=== PATIENT | male | born 1935 | race Hispanic/Latino ===

== ENCOUNTER 2018-01-13 13:37 | Inpatient (IN) | payer MEDICARE, BC ==
--- NOTE | 2018-01-13 14:29 | ED PDOC ---
HPI: Trauma/Fall - HPI Time Seen by Provider: 01/13/18 14:20 Chief Complaint (Nursing): Trauma Chief Complaint (Provider): Trauma History Per: Patient History/Exam Limitations: no limitations Onset/Duration Of Symptoms: Days (x5) Additional Complaint(s): 82 year old male with medical history of diabetes, presents to the emergency department via EMS for left knee pain status post fall prior to arrival. Patient was found on the ground by EMS with difficult ambulation. He also reported falling in a [employer] bus 4 days ago which left him with numbness /weakness of his left arm and leg. Denied any head injury or loss of consciousness. PMD: [facility] Past Medical History Reviewed: Historical Data, Nursing Documentation, Vital Signs Vital Signs: Last Vital Signs Temp 97.9 F 01/13/18 13:39 Pulse 65 01/13/18 13:39 Resp 16 01/13/18 13:39 BP 139/80 01/13/18 13:39 Pulse Ox 99 01/13/18 13:39 - Medical History PMH: HTN, Hyperlipidemia - Surgical History Surgical History: No Surg Hx - Family History Family History: States: Unknown Family Hx - Social History Current smoker - smoking cessation education provided: No Ex-Smoker (has not smoked in the last 12 months): No Alcohol: None Drugs: Denies - Home Medications Home Medications: Ambulatory Orders Medication Instructions Recorded Aspirin [Ecotrin] 81 mg PO DAILY 01/13/18 Atorvastatin [Lipitor] 20 mg PO HS 01/13/18 Finasteride [Proscar] 5 mg PO DAILY 01/13/18 Glimepiride [amaRYL] 2 mg PO DAILY 01/13/18 Insulin Detemir [Levemir] 45 unit SC BID 01/13/18 Lisinopril/Hydrochlorothiazide 1 tab PO BID 01/13/18 [Lisinopril-Hctz 20-12.5 mg Tab] Metformin HCl [Glucophage] 500 mg PO BID 01/13/18 Tamsulosin [Flomax] 0.4 mg PO DAILY 01/13/18 amLODIPine [Norvasc] 10 mg PO DAILY 01/13/18 - Allergies Allergies/Adverse Reactions: Allergies Allergy/AdvReac Type Severity Reaction Status Date / Time No Known Allergies Allergy Verified 01/13/18 13:39 Review of Systems ROS Statement: Except As Marked, All Systems Reviewed And Found Negative Musculoskeletal: Positive for: Leg Pain (left knee). Negative for: Other ( ambulation) Neurological: Positive for: Weakness (left arm and knee), Numbness (left arm and left leg). Negative for: Other (head injury or LOC) Physical Exam - Reviewed Nursing Documentation Reviewed: Yes Vital Signs Reviewed: Yes - Physical Exam Appears: Positive for: Non-toxic, No Acute Distress Head Exam: Positive for: ATRAUMATIC, NORMAL INSPECTION, NORMOCEPHALIC Eye Exam: Positive for: Normal appearance ENT: Positive for: Normal ENT Inspection, Pharynx Is (within normal limits. Neibert and moist mucous membranes) Neck: Positive for: Normal, Painless ROM, Supple Cardiovascular/Chest: Positive for: Regular Rate, Rhythm, Other (left-sided ecchymosis of anterior chest wall) Respiratory: Positive for: Normal Breath Sounds. Negative for: Decreased Breath Sounds, Crackles, Rales, Rhonchi, Wheezing, Respiratory Distress Pulses-Femoral (L): 2+ Pulses-Post. Tibialis (L): 2+ Pulses-Radial (L): 2+ Gastrointestinal/Abdominal: Positive for: Normal Exam, Soft. Negative for: Tenderness Back: Positive for: Normal Inspection. Negative for: L CVA Tenderness, R CVA Tenderness, Vertebral Tenderness, Other (pelvis tenderness) Extremity: Positive for: Other (left arm and left leg weakness-strength: 3/5; Left elbow, proximal humerous and left knee ecchymosis). Negative for: Pedal Edema (bilateral) Neurologic/Psych: Positive for: Alert (x3), Oriented. Negative for: Motor/ Sensory Deficits - Laboratory Results Result Diagrams: 01/13/18 14:45 01/13/18 14:45 - ECG O2 Sat by Pulse Oximetry: 99 (RA) Pulse Ox Interpretation: Normal Medical Decision Making Medical Decision Making: Initial Impression: Left arm and leg weakness Initial Plan: * CT head without contrast * CMP * CBC * PTT * PT * CXR * Xray knee (left) * Xray humerus (left) * Xray pelvis ____ Time: 1536 --CT head FINDINGS: HEMORRHAGE: No intracranial hemorrhage. BRAIN: No mass effect or edema. Mild atrophy and chronic microvascular ischemic changes. VENTRICLES: Unremarkable. No hydrocephalus. CALVARIUM: Unremarkable. PARANASAL SINUSES: Unremarkable as visualized. No significant inflammatory changes. MASTOID AIR CELLS: Unremarkable as visualized. No inflammatory changes. OTHER FINDINGS: None. IMPRESSION: Normal CT of the Head. Scribe Attestation: Documented by Shannan Kennedy, acting as a scribe for Jose Sousa DO. Provider Scribe Attestation: All medical record entries made by the Scribe were at my direction and personally dictated by me. I have reviewed the chart and agree that the record accurately reflects my personal performance of the history, physical exam, medical decision making, and the department course for this patient. I have also personally directed, reviewed, and agree with the discharge instructions and disposition. Disposition - Clinical Impression Clinical Impression: Dehydration, Weakness of left arm, Weakness of left leg - Patient ED Disposition Is Patient to be Admitted: Yes - Disposition Disposition Time: 17:00 Condition: GOOD Forms: [employer] (Kiswahili)
[2018-01-13 14:58] LABS: BASO % 0.4 % (0.0-2.0); EOS # 0.1 K/uL (0.0-0.7); EOS % 0.4 % (0.0-4.0); HEMOGLOBIN 14.1 g/dL (12.0-18.0); LYMPH # 0.9 K/uL (1.0-4.3); MEAN CELL VOLUME 86.3 fl (80.0-94.0); MEAN CORPUSCULAR HGB CONC 32.4 g/dL (33.0-37.0); MEAN PLATELET VOLUME 8.3 fl (7.2-11.7); MONO # 0.9 K/uL (0.0-0.8); MONO % 7.2 % (0.0-10.0); NEUT # 10.5 K/uL (1.8-7.0); NRBC % 0.1 % (0.0-0.0); PLATELET COUNT 278 K/uL (130-400); RBC 5.03 Mil/uL (4.40-5.90); RED CELL DISTRIBUTION WIDTH 14.8 % (11.5-14.5); WHITE BLOOD COUNT 12.4 K/uL (4.8-10.8)
[2018-01-13 15:06] LABS: ALB/GLOB RATIO 1.3 (1.0-2.1); ALBUMIN 4.6 g/dL (3.5-5.0); ALT/SGPT 82 U/L (21-72); AST/SGOT 112 U/L (17-59); BLOOD UREA NITROGEN 68 mg/dl (9-20); CALCIUM 10.1 mg/dL (8.4-10.2); GFR AFRICAN-AMERICAN > 60; GFR NON-AFRICAN AMERICAN 53
[2018-01-13 15:13] LABS: PROTHROMBIN TIME 11.5 Seconds (9.8-13.1)
[2018-01-13 15:30] LABS: ANISOCYTOSIS SLIGHT; LYMPHOCYTE 7 % (20-50); MONOCYTE 6 % (0-10); NEUTROPHIL 87 % (42-75); PLATELET ESTIMATE NORMAL (NORMAL); TOTAL CELLS COUNTED 100
--- NOTE | 2018-01-13 15:38 | CT ---
PROCEDURE: CT HEAD WITHOUT CONTRAST. HISTORY: left weakness COMPARISON: None available. TECHNIQUE: Axial computed tomography images were obtained through the head/brain without intravenous contrast. Radiation dose: Total exam DLP = mGy-cm. This CT exam was performed using one or more of the following dose reduction techniques: Automated exposure control, adjustment of the mA and/or kV according to patient size, and/or use of iterative reconstruction technique. FINDINGS: HEMORRHAGE: No intracranial hemorrhage. BRAIN: No mass effect or edema. Mild atrophy and chronic microvascular ischemic changes. VENTRICLES: Unremarkable. No hydrocephalus. CALVARIUM: Unremarkable. PARANASAL SINUSES: Unremarkable as visualized. No significant inflammatory changes. MASTOID AIR CELLS: Unremarkable as visualized. No inflammatory changes. OTHER FINDINGS: None. IMPRESSION: Normal CT of the Head.
[2018-01-13] MEDS ORDERED: Sodium Chloride 0.9% 500 ML IV SCH (15:45)
[2018-01-13] MEDS: Sodium Chloride 0.9% 1,000 ML IV SCH (20:07)
[2018-01-13 22:07] LABS: ALB/GLOB RATIO 1.2 (1.0-2.1); ALBUMIN 3.7 g/dL (3.5-5.0); ALT/SGPT 70 U/L (21-72); AST/SGOT 83 U/L (17-59); BLOOD UREA NITROGEN 62 mg/dl (9-20); GFR AFRICAN-AMERICAN > 60; GFR NON-AFRICAN AMERICAN > 60
[2018-01-14 07:19] LABS: BASO # 0.1 K/uL (0.0-0.2); EOS # 0.3 K/uL (0.0-0.7); EOS % 3.6 % (0.0-4.0); HEMOGLOBIN 12.5 g/dL (12.0-18.0); LYMPH # 1.2 K/uL (1.0-4.3); LYMPH % 12.7 % (20.0-40.0); MEAN CELL VOLUME 86.6 fl (80.0-94.0); MEAN CORPUSCULAR HEMOGLOBIN 27.9 pg (27.0-31.0); MEAN CORPUSCULAR HGB CONC 32.2 g/dL (33.0-37.0); MEAN PLATELET VOLUME 8.2 fl (7.2-11.7); MONO # 0.8 K/uL (0.0-0.8); MONO % 8.4 % (0.0-10.0); NEUT # 6.8 K/uL (1.8-7.0); NEUT % 74.3 % (50.0-75.0); RBC 4.49 Mil/uL (4.40-5.90); RED CELL DISTRIBUTION WIDTH 14.4 % (11.5-14.5); WHITE BLOOD COUNT 9.2 K/uL (4.8-10.8)
[2018-01-14 07:25] LABS: ALB/GLOB RATIO 1.2 (1.0-2.1); ALBUMIN 3.6 g/dL (3.5-5.0); ALT/SGPT 67 U/L (21-72); AST/SGOT 79 U/L (17-59); BLOOD UREA NITROGEN 50 mg/dl (9-20); CALCIUM 9.1 mg/dL (8.4-10.2); GFR AFRICAN-AMERICAN > 60; GFR NON-AFRICAN AMERICAN > 60
--- NOTE | 2018-01-14 07:53 | CP.PCM.HP ---
History of Present Illness - History of Present Illness History of Present Illness: pt admitted for "fall" at [facility] monday night. was assisted home and sat on couch until yesterday. electrolytes abn and pt w/ left sided weakness. bruising noted to lue. lue/lle 01/29, r side 03/31 denies f/c, n/v/d. denies neuro deficits prior to monday. pt is a/ox4 at present. final reports of imging noted electrolytes normalizing w/ fluids. cpk elevated. Present on Admission - Present on Admission Any Indicators Present on Admission: Yes History of Uncontrolled Diabetes: Yes Review of Systems - Integumentary Integumentary: As Per HPI Past Patient History - Past Medical History & Family History Past Medical History?: Yes - Past Social History Smoking Status: Never Smoked - CARDIAC Hx Cardiac Disorders: Yes Hx Hypercholesterolemia: Yes Hx Hypertension: Yes - PULMONARY Hx Respiratory Disorders: No - NEUROLOGICAL Hx Neurological Disorder: No - HEENT Hx HEENT Problems: Yes Hx Cataracts: Yes Hx Glaucoma: Yes - RENAL Hx Chronic Kidney Disease: No - ENDOCRINE/METABOLIC Hx Endocrine Disorders: Yes Hx Diabetes Mellitus Type 2: Yes - HEMATOLOGICAL/ONCOLOGICAL Hx Blood Disorders: No Hx AIDS: No Hx Human Immunodeficiency Virus (HIV): No - INTEGUMENTARY Hx Dermatological Problems: No - MUSCULOSKELETAL/RHEUMATOLOGICAL Hx Falls: Yes (1st fall 4 days ago, slipped) - GASTROINTESTINAL Hx Gastrointestinal Disorders: Yes Hx Constipation: Yes - GENITOURINARY/GYNECOLOGICAL Hx Genitourinary Disorders: Yes Hx Prostate Problems: Yes - PSYCHIATRIC Hx Psychophysiologic Disorder: No Hx Substance Use: No - SURGICAL HISTORY Hx Surgeries: No - ANESTHESIA Hx Anesthesia: No Hx Anesthesia Reactions: No Hx Malignant Hyperthermia: No Has any member of the family had a problem w/ anesthesia?: No Meds Allergies/Adverse Reactions: Allergies Allergy/AdvReac Type Severity Reaction Status Date / Time No Known Allergies Allergy Verified 01/13/18 13:39 Physical Exam - Constitutional Appears: Well, Non-toxic, No Acute Distress - Head Exam Head Exam: ATRAUMATIC, NORMAL INSPECTION, NORMOCEPHALIC - Eye Exam Eye Exam: EOMI, Normal appearance, PERRL Pupil Exam: NORMAL ACCOMODATION, PERRL - ENT Exam ENT Exam: Mucous Membranes Moist, Normal Exam - Neck Exam Neck exam: Positive for: Normal Inspection - Respiratory Exam Respiratory Exam: Clear to Auscultation Bilateral, NORMAL BREATHING PATTERN - Cardiovascular Exam Cardiovascular Exam: REGULAR RHYTHM, RRR, +S1, +S2 - GI/Abdominal Exam GI & Abdominal Exam: Normal Bowel Sounds, Soft. absent: Tenderness - Extremities Exam Extremities exam: Positive for: full ROM, normal capillary refill, normal inspection, pedal pulses present - Back Exam Back exam: NORMAL INSPECTION - Neurological Exam Neurological exam: Abnormal Gait, Alert, CN II-XII Intact, Oriented x3, Reflexes Normal - Psychiatric Exam Psychiatric exam: Normal Affect, Normal Mood - Skin Skin Exam: Dry, Intact, Normal Color, Warm Additional comments: erythema under abd fold brusing to left arm Results - Vital Signs Recent Vital Signs: Last Vital Signs Temp 97.9 F 01/14/18 00:13 Pulse 64 01/14/18 00:13 Resp 19 01/14/18 00:13 BP 138/78 01/14/18 00:13 Pulse Ox 96 01/14/18 00:13 - Labs Result Diagrams: 01/14/18 05:30 01/14/18 05:30 Labs: Laboratory Results - last 24 hr 01/13/18 01/13/18 01/13/18 14:45 14:45 14:45 WBC 12.4 H RBC 5.03 Hgb 14.1 Hct 43.4 MCV 86.3 MCH 28.0 MCHC 32.4 L RDW 14.8 H Plt Count 278 MPV 8.3 Neut % (Auto) 85.0 H Lymph % (Auto) 7.0 L Franklin % (Auto) 7.2 Eos % (Auto) 0.4 Baso % (Auto) 0.4 Neut # (Auto) 10.5 H Lymph # (Auto) 0.9 L Franklin # (Auto) 0.9 H Eos # (Auto) 0.1 Baso # (Auto) 0.0 Neutrophils % (Manual) 87 H Lymphocytes % (Manual) 7 L Monocytes % (Manual) 6 Platelet Estimate Normal Anisocytosis (manual) Slight PT 11.5 INR 1.0 APTT 27.0 Sodium 151 H Potassium 5.1 H Chloride 112 H Carbon Dioxide 20 L Anion Gap 24 H BUN 68 H Creatinine 1.3 Est GFR ( Amer) > 60 Est GFR (Non-Af Amer) 53 POC Glucose (mg/dL) Random Glucose 285 H Calcium 10.1 Total Bilirubin 2.3 H AST 112 H ALT 82 H Alkaline Phosphatase 91 Total Creatine Kinase Total Protein 8.1 Albumin 4.6 Globulin 3.5 Albumin/Globulin Ratio 1.3 01/13/18 01/13/18 01/13/18 17:33 21:30 21:56 WBC RBC Hgb Hct MCV MCH MCHC RDW Plt Count MPV Neut % (Auto) Lymph % (Auto) Franklin % (Auto) Eos % (Auto) Baso % (Auto) Neut # (Auto) Lymph # (Auto) Franklin # (Auto) Eos # (Auto) Baso # (Auto) Neutrophils % (Manual) Lymphocytes % (Manual) Monocytes % (Manual) Platelet Estimate Anisocytosis (manual) PT INR APTT Sodium 141 Potassium 4.1 Chloride 108 H Carbon Dioxide 19 L Anion Gap 18 BUN 62 H Creatinine 1.1 Est GFR ( Amer) > 60 Est GFR (Non-Af Amer) > 60 POC Glucose (mg/dL) 216 H 182 H Random Glucose 222 H Calcium 9.0 Total Bilirubin 2.0 H AST 83 H D ALT 70 Alkaline Phosphatase 74 Total Creatine Kinase 1398 H Total Protein 6.7 Albumin 3.7 Globulin 3.1 Albumin/Globulin Ratio 1.2 01/14/18 01/14/18 01/14/18 05:30 05:30 05:40 WBC 9.2 RBC 4.49 Hgb 12.5 Hct 38.9 MCV 86.6 MCH 27.9 MCHC 32.2 L RDW 14.4 Plt Count 199 MPV 8.2 Neut % (Auto) 74.3 Lymph % (Auto) 12.7 L Franklin % (Auto) 8.4 Eos % (Auto) 3.6 Baso % (Auto) 1.0 Neut # (Auto) 6.8 Lymph # (Auto) 1.2 Franklin # (Auto) 0.8 Eos # (Auto) 0.3 Baso # (Auto) 0.1 Neutrophils % (Manual) Lymphocytes % (Manual) Monocytes % (Manual) Platelet Estimate Anisocytosis (manual) PT INR APTT Sodium 143 Potassium 4.3 Chloride 109 H Carbon Dioxide 22 Anion Gap 16 BUN 50 H Creatinine 1.0 Est GFR ( Amer) > 60 Est GFR (Non-Af Amer) > 60 POC Glucose (mg/dL) 156 H Random Glucose 181 H Calcium 9.1 Total Bilirubin 2.5 H AST 79 H ALT 67 Alkaline Phosphatase 76 Total Creatine Kinase Total Protein 6.6 Albumin 3.6 Globulin 3.1 Albumin/Globulin Ratio 1.2 Assessment & Plan (1) Fall Assessment and Plan: pt//ot izabela placement Status: Acute (2) Dehydration Assessment and Plan: cont ivf lkely cause of elev bun/cpk neprho consult Status: Acute (3) Weakness of left arm Assessment and Plan: unkn etiology mri and neuro ordered eeg and seizure precautions f/u final reports of imaging Status: Acute (4) Weakness of left leg Assessment and Plan: unkn etiology mri and neuro ordered eeg and seizure precautions f/u final reports of imaging Status: Acute Decision To Admit - Pt Status Changed To: Hospital Disposition Of: Inpatient - Admit Certification Admit to Inpatient:: After my assessment, the patient will require hospitalization for at least two midnights. This is because of the severity of symptoms shown, intensity of services needed, and/or the medical risk in this patient being treated as an outpatient. - . Bed Request Type: Med/Surg Admitting Physician: Surendra Gill
[2018-01-14] MEDS ORDERED: Sodium Chloride 0.9% 1,000 ML IV SCH (08:00)
--- NOTE | 2018-01-14 08:42 | RAD ---
HISTORY: fall COMPARISON: No prior FINDINGS: BONES: Normal. No fracture. JOINTS: Normal. No osteoarthritis. SOFT TISSUE: Normal. OTHER FINDINGS: None . IMPRESSION: Normal Bone Xray.
--- NOTE | 2018-01-14 08:43 | RAD ---
HISTORY: fall COMPARISON: No prior FINDINGS: BONES: Normal. No fracture. JOINTS: Tricompartmental osteoarthritis with chondrocalcinosis. SOFT TISSUE: Normal. OTHER FINDINGS: None . IMPRESSION: Tricompartmental osteoarthritis with chondrocalcinosis.
--- NOTE | 2018-01-14 08:44 | RAD ---
HISTORY: fall COMPARISON: No prior FINDINGS: BONES: Normal. No fracture. JOINTS: Normal. No osteoarthritis. SOFT TISSUE: Normal. OTHER FINDINGS: None . IMPRESSION: Normal Bone Xray.
[2018-01-14] MEDS ORDERED: Patient's Own Med (Lisinopril/Hydrochlorothiazide [Lisinopril-Hctz 20-12.5 Mg Tab] 1 TAB) PO SCH ×2 (09:00)
--- NOTE | 2018-01-14 10:16 | RAD ---
PROCEDURE: CHEST RADIOGRAPH, 1 VIEW HISTORY: pain COMPARISON: None available. FINDINGS: LUNGS: Clear. PLEURA: No pneumothorax or pleural fluid seen. CARDIOVASCULAR: Normal. OSSEOUS STRUCTURES: No significant abnormalities. VISUALIZED UPPER ABDOMEN: Normal. OTHER FINDINGS: None. IMPRESSION: No active disease.
--- NOTE | 2018-01-14 10:30 | RAD ---
PROCEDURE: Radiographs of the left elbow. HISTORY: fall, bruising COMPARISON: No prior. FINDINGS: BONES: Normal. No fracture. JOINTS: Normal. No osteoarthritis. SOFT TISSUES: Normal. JOINT EFFUSION: None. OTHER FINDINGS: None IMPRESSION: Unremarkable radiographs of the left elbow.
[2018-01-14] MEDS: GlipiZIDE 5 mg SR Tab PO SCH (10:43)
--- NOTE | 2018-01-14 11:42 | CP.PCM.CON ---
History of Present Illness - History of Present Illness History of Present Illness: Initial Nephrology Consultation: Assessment: Stable Acute Kidney Injury (N17.9) likely due to pre-renal state Hypernatremia, mild rhabdomyolysis HTN (I12.9) abnormal LFT with hyperbilirubinemia fall DM Plan No acute need for renal replacement therapy at this time. Hypertension control with meds as ordered. hold ACEI/ARB due to LELAND. can resume at d/c Monitor Input/Output, daily weights and renal function with basic metabolic panel agree with IVF as NS since serum Na improving. can d/c IVF in next 1-2 days Dose meds/antibiotics for improved GFR. Avoid fleets enema/magnesium based laxatives. Avoid nephrotoxins/NSAIDs Glycemic control Further work up/management as per primary team Thanks for allowing me to participate in care of your patient. Will follow patient with you. Please call if any Qs. d/w team Dr Roberto Johnson Office: [phone] Chief Complaint; fall HPI: Pt is a 82 M with hx of diabetes Mellitus ( years), hypertension (years) presented with complaints of fall and left leg weakness since . renal consult for LELAND and hypernatremia. he is feeling better now except left leg pain and weakness Denies OTC/herbal meds or NSAIDs No recent iodinated contrast exposure. No obvious episodes of low BP. ROS: Cardiovascular: No chest pain. Pulmonary: No shortness of breath Gastrointestinal: denies abdominal pain No nausea. No vomiting. Genitourinary: No pain while urinating. Denies blood in urine. All other negative Physical Examination: General Appearance: Comfortable, in no acute respiratory distress, co-operative . Vitals reviewed and noted as below Head; Atraumatic, normocephalic ENT: no ulcers no thrush. Tongue is midline. Oropharynx: no rash or ulcers. EYES: Pupils are equal, round and reactive to light accommodation. Eye muscles and extraocular movement intact. Sclera is anicteric. Neck; supple no lymphadenopathy, no thyromegaly or bruit Lungs: Normal respiratory rate/effort. Breath sounds bilateral equal and clear Heart: Normal rate. s1s2 normal. No rub or gallop. Extremities: no edema. No varicose veins Neurological: Patient is alert, awake and oriented to person, place and time. Strength somewhat diminished left leg. has superficial bruising around knee Skin: Warm and dry. Normal turgor. No rash. Palpitation: Normal elasticity for age Abdomen: Abdomen is soft. Bowel sounds +. There is no abdominal tenderness, no guarding/rigidity no organomegaly Psych: normal insight and normal affect/mood MSK: no joint tenderness or swelling. Digits and nails normal, no deformity : kidney or bladder not palpable Labs/imaging reviewed. Past medical history, past surgical history, family history, social history, allergy reviewed and noted as below Family hx: no hx of CKD. Rest non-contributory Past Patient History - Past Medical History & Family History Past Medical History?: Yes - Past Social History Smoking Status: Never Smoked - CARDIAC Hx Cardiac Disorders: Yes Hx Hypercholesterolemia: Yes Hx Hypertension: Yes - PULMONARY Hx Respiratory Disorders: No - NEUROLOGICAL Hx Neurological Disorder: No - HEENT Hx HEENT Problems: Yes Hx Cataracts: Yes Hx Glaucoma: Yes - RENAL Hx Chronic Kidney Disease: No - ENDOCRINE/METABOLIC Hx Endocrine Disorders: Yes Hx Diabetes Mellitus Type 2: Yes - HEMATOLOGICAL/ONCOLOGICAL Hx Blood Disorders: No Hx AIDS: No Hx Human Immunodeficiency Virus (HIV): No - INTEGUMENTARY Hx Dermatological Problems: No - MUSCULOSKELETAL/RHEUMATOLOGICAL Hx Falls: Yes (1st fall 4 days ago, slipped) - GASTROINTESTINAL Hx Gastrointestinal Disorders: Yes Hx Constipation: Yes - GENITOURINARY/GYNECOLOGICAL Hx Genitourinary Disorders: Yes Hx Prostate Problems: Yes - PSYCHIATRIC Hx Psychophysiologic Disorder: No Hx Substance Use: No - SURGICAL HISTORY Hx Surgeries: No - ANESTHESIA Hx Anesthesia: No Hx Anesthesia Reactions: No Hx Malignant Hyperthermia: No Has any member of the family had a problem w/ anesthesia?: No Meds Allergies/Adverse Reactions: Allergies Allergy/AdvReac Type Severity Reaction Status Date / Time No Known Allergies Allergy Verified 01/13/18 13:39 - Medications Medications: Current Medications Amlodipine Besylate (Norvasc) 10 mg PO DAILY [facility] Last Admin: 01/14/18 10:43 Dose: 10 mg Aspirin (Ecotrin) 81 mg PO DAILY [facility] Last Admin: 01/14/18 10:43 Dose: 81 mg Atorvastatin Calcium (Lipitor) 20 mg PO HS [facility] Last Admin: 01/13/18 21:49 Dose: 20 mg Finasteride (Proscar) 5 mg PO DAILY [facility] Last Admin: 01/14/18 10:42 Dose: 5 mg Glipizide (Glucotrol Xl) 5 mg PO BRK [facility] Last Admin: 01/14/18 10:43 Dose: 5 mg Sodium Chloride (Sodium Chloride 0.9%) 500 mls @ 125 mls/hr IV .Q4H [facility] Last Admin: 01/13/18 15:59 Dose: 125 mls/hr Sodium Chloride (Sodium Chloride 0.9%) 1,000 mls @ 100 mls/hr IV .Q10H [facility] Stop: 01/14/18 19:57 Last Admin: 01/13/18 20:07 Dose: 100 mls/hr Sodium Chloride (Sodium Chloride 0.9%) 1,000 mls @ 100 mls/hr IV .Q10H [facility] Stop: 01/15/18 07:50 Insulin Detemir (Levemir) 45 units SC BID [facility] Metformin HCl (Glucophage) 500 mg PO BID [facility] Last Admin: 01/14/18 10:43 Dose: 500 mg Nystatin (Nystop Topical Powder) 1 applic TOP TID [facility] Last Admin: 01/14/18 10:44 Dose: 1 applic Tamsulosin HCl (Flomax) 0.4 mg PO DAILY [facility] Last Admin: 01/14/18 10:42 Dose: 0.4 mg Results - Vital Signs Recent Vital Signs: Last Vital Signs Temp 98 F 01/14/18 08:48 Pulse 59 L 01/14/18 08:48 Resp 18 01/14/18 08:48 BP 148/70 01/14/18 10:43 Pulse Ox 98 01/14/18 08:48 - Labs Result Diagrams: 01/14/18 05:30 01/14/18 05:30 Labs: Laboratory Results - last 24 hr 01/13/18 01/13/18 01/13/18 14:45 14:45 14:45 WBC 12.4 H RBC 5.03 Hgb 14.1 Hct 43.4 MCV 86.3 MCH 28.0 MCHC 32.4 L RDW 14.8 H Plt Count 278 MPV 8.3 Neut % (Auto) 85.0 H Lymph % (Auto) 7.0 L Stanton % (Auto) 7.2 Eos % (Auto) 0.4 Baso % (Auto) 0.4 Neut # (Auto) 10.5 H Lymph # (Auto) 0.9 L Stanton # (Auto) 0.9 H Eos # (Auto) 0.1 Baso # (Auto) 0.0 Neutrophils % (Manual) 87 H Lymphocytes % (Manual) 7 L Monocytes % (Manual) 6 Platelet Estimate Normal Anisocytosis (manual) Slight PT 11.5 INR 1.0 APTT 27.0 Sodium 151 H Potassium 5.1 H Chloride 112 H Carbon Dioxide 20 L Anion Gap 24 H BUN 68 H Creatinine 1.3 Est GFR ( Amer) > 60 Est GFR (Non-Af Amer) 53 POC Glucose (mg/dL) Random Glucose 285 H Calcium 10.1 Total Bilirubin 2.3 H AST 112 H ALT 82 H Alkaline Phosphatase 91 Total Creatine Kinase Total Protein 8.1 Albumin 4.6 Globulin 3.5 Albumin/Globulin Ratio 1.3 01/13/18 01/13/18 01/13/18 17:33 21:30 21:56 WBC RBC Hgb Hct MCV MCH MCHC RDW Plt Count MPV Neut % (Auto) Lymph % (Auto) Stanton % (Auto) Eos % (Auto) Baso % (Auto) Neut # (Auto) Lymph # (Auto) Stanton # (Auto) Eos # (Auto) Baso # (Auto) Neutrophils % (Manual) Lymphocytes % (Manual) Monocytes % (Manual) Platelet Estimate Anisocytosis (manual) PT INR APTT Sodium 141 Potassium 4.1 Chloride 108 H Carbon Dioxide 19 L Anion Gap 18 BUN 62 H Creatinine 1.1 Est GFR ( Amer) > 60 Est GFR (Non-Af Amer) > 60 POC Glucose (mg/dL) 216 H 182 H Random Glucose 222 H Calcium 9.0 Total Bilirubin 2.0 H AST 83 H D ALT 70 Alkaline Phosphatase 74 Total Creatine Kinase 1398 H Total Protein 6.7 Albumin 3.7 Globulin 3.1 Albumin/Globulin Ratio 1.2 01/14/18 01/14/18 01/14/18 05:30 05:30 05:40 WBC 9.2 RBC 4.49 Hgb 12.5 Hct 38.9 MCV 86.6 MCH 27.9 MCHC 32.2 L RDW 14.4 Plt Count 199 MPV 8.2 Neut % (Auto) 74.3 Lymph % (Auto) 12.7 L Stanton % (Auto) 8.4 Eos % (Auto) 3.6 Baso % (Auto) 1.0 Neut # (Auto) 6.8 Lymph # (Auto) 1.2 Stanton # (Auto) 0.8 Eos # (Auto) 0.3 Baso # (Auto) 0.1 Neutrophils % (Manual) Lymphocytes % (Manual) Monocytes % (Manual) Platelet Estimate Anisocytosis (manual) PT INR APTT Sodium 143 Potassium 4.3 Chloride 109 H Carbon Dioxide 22 Anion Gap 16 BUN 50 H Creatinine 1.0 Est GFR ( Amer) > 60 Est GFR (Non-Af Amer) > 60 POC Glucose (mg/dL) 156 H Random Glucose 181 H Calcium 9.1 Total Bilirubin 2.5 H AST 79 H ALT 67 Alkaline Phosphatase 76 Total Creatine Kinase Total Protein 6.6 Albumin 3.6 Globulin 3.1 Albumin/Globulin Ratio 1.2
[2018-01-14] MEDS: Sodium Chloride 0.9% 1,000 ML IV SCH (12:56)
[2018-01-14] MEDS: Insulin Detemir 100 Units/ml Inj SC SCH ×2 (12:57→16:45)
[2018-01-15 06:31] LABS: BASO # 0.1 K/uL (0.0-0.2); BASO % 0.7 % (0.0-2.0); EOS # 0.2 K/uL (0.0-0.7); EOS % 2.9 % (0.0-4.0); HEMOGLOBIN 12.1 g/dL (12.0-18.0); LYMPH # 1.1 K/uL (1.0-4.3); LYMPH % 13.4 % (20.0-40.0); MEAN CELL VOLUME 86.4 fl (80.0-94.0); MEAN CORPUSCULAR HEMOGLOBIN 27.7 pg (27.0-31.0); MEAN PLATELET VOLUME 8.3 fl (7.2-11.7); MONO # 0.8 K/uL (0.0-0.8); MONO % 9.4 % (0.0-10.0); NEUT # 6.3 K/uL (1.8-7.0); NEUT % 73.6 % (50.0-75.0); RBC 4.38 Mil/uL (4.40-5.90); RED CELL DISTRIBUTION WIDTH 14.4 % (11.5-14.5); WHITE BLOOD COUNT 8.5 K/uL (4.8-10.8)
[2018-01-15 07:05] LABS: ALB/GLOB RATIO 1.1 (1.0-2.1); ALBUMIN 3.2 g/dL (3.5-5.0); ALT/SGPT 63 U/L (21-72); AST/SGOT 51 U/L (17-59); BLOOD UREA NITROGEN 30 mg/dl (9-20); CALCIUM 8.9 mg/dL (8.4-10.2); GFR AFRICAN-AMERICAN > 60; GFR NON-AFRICAN AMERICAN > 60
--- NOTE | 2018-01-15 08:29 | CP.PCM.PN ---
Subjective - Date & Time of Evaluation Date of Evaluation: 01/15/18 Time of Evaluation: 08:28 - Subjective Subjective: pt doing well. moving left side more so today but unable to resist against pressure. no f/c, n/v/d. bw noted. bun/cpk trending down. for tests and pt/ot today, izabela tomorrow. Objective - Vital Signs/Intake and Output Vital Signs (last 24 hours): Temp Pulse Resp BP Pulse Ox 97.3 F L 60 18 140/73 96 01/15/18 00:54 01/15/18 00:54 01/15/18 00:54 01/15/18 00:54 01/15/18 00:54 - Medications Medications: Current Medications Amlodipine Besylate (Norvasc) 10 mg PO DAILY [facility] Last Admin: 01/14/18 10:43 Dose: 10 mg Aspirin (Ecotrin) 81 mg PO DAILY [facility] Last Admin: 01/14/18 10:43 Dose: 81 mg Atorvastatin Calcium (Lipitor) 20 mg PO HS [facility] Last Admin: 01/14/18 22:31 Dose: 20 mg Finasteride (Proscar) 5 mg PO DAILY [facility] Last Admin: 01/14/18 10:42 Dose: 5 mg Glipizide (Glucotrol Xl) 5 mg PO BRK [facility] Last Admin: 01/14/18 10:43 Dose: 5 mg Sodium Chloride (Sodium Chloride 0.9%) 500 mls @ 125 mls/hr IV .Q4H [facility] Last Admin: 01/13/18 15:59 Dose: 125 mls/hr Insulin Detemir (Levemir) 45 units SC BID [facility] Last Admin: 01/14/18 16:45 Dose: 45 unit Metformin HCl (Glucophage) 500 mg PO BID [facility] Last Admin: 01/14/18 16:45 Dose: 500 mg Nystatin (Nystop Topical Powder) 1 applic TOP TID [facility] Last Admin: 01/14/18 16:47 Dose: 1 applic Tamsulosin HCl (Flomax) 0.4 mg PO DAILY [facility] Last Admin: 01/14/18 10:42 Dose: 0.4 mg - Labs Labs: 01/15/18 05:47 01/15/18 05:47 PT 11.5 Seconds (9.8-13.1) 01/13/18 14:45 INR 1.0 (0.9-1.2) 01/13/18 14:45 APTT 27.0 Seconds (25.6-37.1) 01/13/18 14:45 - Constitutional Appears: Well, Non-toxic, No Acute Distress - Head Exam Head Exam: ATRAUMATIC, NORMAL INSPECTION, NORMOCEPHALIC - Eye Exam Eye Exam: EOMI, Normal appearance, PERRL Pupil Exam: NORMAL ACCOMODATION, PERRL - ENT Exam ENT Exam: Mucous Membranes Moist, Normal Exam - Neck Exam Neck Exam: Full ROM, Normal Inspection. absent: Lymphadenopathy - Respiratory Exam Respiratory Exam: Clear to Ausculation Bilateral, NORMAL BREATHING PATTERN - Cardiovascular Exam Cardiovascular Exam: REGULAR RHYTHM, RRR, +S1, +S2. absent: Murmur - GI/Abdominal Exam GI & Abdominal Exam: Soft, Normal Bowel Sounds. absent: Tenderness - Extremities Exam Extremities Exam: Full ROM, Normal Capillary Refill, Normal Inspection. absent : Joint Swelling, Pedal Edema - Back Exam Back Exam: NORMAL INSPECTION - Neurological Exam Neurological Exam: Abnormal Gait, Alert, Awake, CN II-XII Intact, Oriented x3 Neuro motor strength exam: Left Upper Extremity: 4, Right Upper Extremity: 5, Left Lower Extremity: 4, Right Lower Extremity: 5 - Psychiatric Exam Psychiatric exam: Normal Affect, Normal Mood - Skin Skin Exam: Dry, Intact, Normal Color, Warm Assessment and Plan (1) Fall Status: Acute (2) Dehydration Status: Acute (3) Weakness of left arm Status: Acute (4) Weakness of left leg Status: Acute - Assessment and Plan (Free Text) Assessment: (1) Fall Assessment and Plan: pt//ot izabela placement Status: Acute (2) Dehydration Assessment and Plan: cont ivf lkely cause of elev bun/cpk neprho consult bun/cpk improving Status: Acute (3) Weakness of left arm Assessment and Plan: unkn etiology mri and neuro ordered eeg and seizure precautions f/u final reports of imaging Status: Acute (4) Weakness of left leg Assessment and Plan: unkn etiology mri and neuro ordered eeg and seizure precautions f/u final reports of imaging Status: Acute
--- NOTE | 2018-01-15 09:16 | CARD ---
APPROVED REPORT EKG Measurement Heart [id number] <Conclusion> Normal sinus rhythm baseline artefact
[2018-01-15] MEDS: GlipiZIDE 5 mg SR Tab PO SCH (09:22)
[2018-01-15] MEDS: Insulin Detemir 100 Units/ml Inj SC SCH ×2 (09:23→17:55)
[2018-01-15 09:26] LABS: HDL CHOLESTEROL 33 MG/DL (30-70)
[2018-01-15 09:38] LABS: LDL CHOLESTEROL 47 mg/dL (0-129)
--- NOTE | 2018-01-15 09:49 | CP.PCM.PN ---
Subjective - Date & Time of Evaluation Date of Evaluation: 01/15/18 Time of Evaluation: 09:47 - Subjective Subjective: RENAL FOLLOW UP Impression: Acute Kidney Injury (N17.9) likely due to pre-renal state Hypernatremia, mild rhabdomyolysis HTN (I12.9) abnormal LFT with hyperbilirubinemia fall DM Plan No acute need for renal replacement therapy at this time. LELAND resolving CPK much improved Hypertensionreasonably controlled, holding ACEI/ARB due to LELAND. can resume at d/ c if tolerating normal diet can d/c ivf S: seen and examined has no complaints Physical Examination: General Appearance: Comfortable, in no acute respiratory distress, co-operative . Vitals reviewed and noted as below Head; Atraumatic, normocephalic ENT: no ulcers no thrush. Tongue is midline. Oropharynx: no rash or ulcers. EYES: Pupils are equal, round and reactive to light accommodation. Eye muscles and extraocular movement intact. Sclera is anicteric. Neck; supple no lymphadenopathy, no thyromegaly or bruit Lungs: Normal respiratory rate/effort. Breath sounds bilateral equal and clear Heart: Normal rate. s1s2 normal. No rub or gallop. Extremities: no edema. No varicose veins Neurological: Patient is alert, awake and oriented to person, place and time. Strength somewhat diminished left leg. has superficial bruising around knee Skin: Warm and dry. Normal turgor. No rash. Palpitation: Normal elasticity for age Abdomen: Abdomen is soft. Bowel sounds +. There is no abdominal tenderness, no guarding/rigidity no organomegaly Psych: normal insight and normal affect/mood MSK: no joint tenderness or swelling. Digits and nails normal, no deformity : kidney or bladder not palpable Labs/imaging reviewed. Past medical history, past surgical history, family history, Objective - Vital Signs/Intake and Output Vital Signs (last 24 hours): Temp Pulse Resp BP Pulse Ox 98.3 F 63 18 159/75 H 99 01/15/18 08:32 01/15/18 09:25 01/15/18 08:32 01/15/18 09:25 01/15/18 08:32 - Medications Medications: Current Medications Amlodipine Besylate (Norvasc) 10 mg PO DAILY [facility] Last Admin: 01/15/18 09:25 Dose: 10 mg Aspirin (Ecotrin) 81 mg PO DAILY [facility] Last Admin: 01/15/18 09:21 Dose: 81 mg Atorvastatin Calcium (Lipitor) 20 mg PO HS [facility] Last Admin: 01/14/18 22:31 Dose: 20 mg Finasteride (Proscar) 5 mg PO DAILY [facility] Last Admin: 01/15/18 09:21 Dose: 5 mg Glipizide (Glucotrol Xl) 5 mg PO BRK [facility] Last Admin: 01/15/18 09:22 Dose: 5 mg Sodium Chloride (Sodium Chloride 0.9%) 500 mls @ 125 mls/hr IV .Q4H [facility] Last Admin: 01/13/18 15:59 Dose: 125 mls/hr Insulin Detemir (Levemir) 45 units SC BID [facility] Last Admin: 01/15/18 09:23 Dose: 45 unit Metformin HCl (Glucophage) 500 mg PO BID [facility] Last Admin: 01/15/18 09:21 Dose: 500 mg Nystatin (Nystop Topical Powder) 1 applic TOP TID [facility] Last Admin: 01/15/18 09:21 Dose: 1 applic Tamsulosin HCl (Flomax) 0.4 mg PO DAILY [facility] Last Admin: 01/15/18 09:21 Dose: 0.4 mg - Labs Labs: 01/15/18 05:47 01/15/18 05:47 PT 11.5 Seconds (9.8-13.1) 01/13/18 14:45 INR 1.0 (0.9-1.2) 01/13/18 14:45 APTT 27.0 Seconds (25.6-37.1) 01/13/18 14:45
--- NOTE | 2018-01-15 12:55 | PQF GENQUE ---
Mike Murillo STAGE RIGGER, Bowstring Maker documented the following information with no mention of this diagnosis in your documentation. Please indicate in your next progress note your agreement with sfdc consultant or provide clarification that this diagnosis is not a current condition. Diagnosis: Acute Kidney Injury with Mild Rhabdomyolysis Documented by: Renal sfdc consultant Location: Consult and a follow up progress note OR: Disagree OR: Other explanation of clinical finding ER: presents to the emergency department via EMS for left knee pain status post fall prior to arrival. Patient was found on the ground by EMS with difficult ambulation. He also reported falling in a [employer] bus 4 days ago which left him with numbness/weakness of his left arm and leg. STAGE RIGGER :H and P and progress notes: Diagnoses include: 2) Dehydration Assessment and Plan: cont ivf lkely cause of elev bun/cpk neprho consult Status: Acute Renal consult; Acute Kidney Injury (N17.9) likely due to pre-renal state Hypernatremia, mild rhabdomyolysis HTN (I12.9) abnormal LFT with hyperbilirubinemia fall DM 01/15 Renal note: Acute Kidney Injury (N17.9) likely due to pre-renal state Hypernatremia, mild rhabdomyolysis HTN (I12.9) abnormal LFT with hyperbilirubinemia fall DM --LELAND resolving , CPK much improved Hypertensionr easonably controlled , holding ACEI/ARB due to LELAND. can resume at d/c if tolerating normal diet can d /c ivf This form is a permanent part of the medical record Clarification of your documentation is requested to better reflect the severity of illness and intensity of treatment of your patient. Indicators present [] Specify: [] [] Specify: [] [] Specify: [] [] Specify: [] Location in the medical record that reflects the above clinical findings: [] Treatment Provided: [] PHYSICIAN'S RESPONSE Based on your medical judgment of the clinical indicators outlined above please clarify the following: [] Practitioner response rhabdo w/ jami present on admission. likely secondary to dehydration. improving w/ ivf [] If unable to determine, please check the box, sign and date. Present On Admission (POA) Indicator: [x] Present at the time of admission [] Not present at the time of admission [] Clinically Undetermined In responding to this query, please exercise your independent professional judgment. The fact that a question is asked does not imply that any particular answer is desired or expected. Thank you for your clarification on this documentation. If you have any questions please call. * Thank you, Connie Kyle RN ext. #[phone] MTDD
--- NOTE | 2018-01-15 13:06 | MRI ---
PROCEDURE: MRI BRAIN WITHOUT CONTRAST HISTORY: left sided weakness COMPARISON: Unenhanced head CT 01/13/2018 TECHNIQUE: Multiplanar, multisequence MR images of the brain were obtained without intravenous contrast enhancement. FINDINGS: HEMORRHAGE: None DWI: Multifocal small foci of restricted diffusion identified scattered primarily throughout the right MCA distribution but also involves minimal segment of the right [employer]STUME DIRECTOR distribution suggestive of embolic type process potentially at the level of the right internal carotid artery. No left cerebral hemisphere or infratentorial acute subacute infarct is identified. BRAIN PARENCHYMA: Diffuse cerebral atrophy chronic microangiopathy are reiterated. There is no mass effect. There is no suspicious extra-axial collection identified. The midline brain and appears diffusely unremarkable with the craniocervical junction appearing intact. Chronic lacunar infarct identified at the bilateral upper basal ganglia with likely dilated perivascular spaces otherwise noted at the bilateral basal ganglia. VENTRICLES: Unremarkable. No hydrocephalus. CRANIUM: Unremarkable. ORBITS: Grossly unremarkable. PARANASAL SINUSES/MASTOIDS: Right mastoid effusions are moderately identified. VASCULAR SYSTEM: Skull base flow voids intact. OTHER FINDINGS: None. IMPRESSION: 1. Embolic type distribution of acute or subacute lacune infarctions are identified at the right frontal, parietal and occipital lobes as discussed above. No significant mass effect is identified. Further clinical correlation is advised. No significant mass effect. Follow-up CT is recommended. 2. A few chronic lacunar infarcts are identified at the basal ganglia bilaterally. 3. 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 4. Age related neuro degenerative changes reiterated.
--- NOTE | 2018-01-15 13:37 | US ---
PROCEDURE: Duplex ultrasound of the carotid and vertebral arteries. HISTORY: CVA COMPARISON: None available. TECHNIQUE: Grayscale and duplex Doppler evaluation of the cervical carotid and vertebral arteries were performed. The common carotid, carotid bifurcations and cervical ICA and proximal ECA were evaluated. The vertebral arteries were evaluated for gross patency and direction. FINDINGS: There is intimal thickening and calcified of her sclerotic plaques in the carotid bulbs. RIGHT CAROTID ARTERIES: Common Carotid Artery: Normal. Maximal flow velocity of 83.3 cm/s. Carotid Bifurcation: Normal. Internal Carotid Artery:Normal. Maximal flow velocity of 95.1 cm/s. External Carotid Artery (proximal branches): Normal. Maximal flow velocity of 102.9 cm/s. ICA/CCA Ratio: 1.1 LEFT CAROTID ARTERIES: Common Carotid Artery: Normal. Maximal flow velocity of 82.7 cm/s. Carotid Bifurcation: Normal. Internal Carotid Artery:Normal. Maximal flow velocity of 83.8 cm/s. External Carotid Artery (proximal branches): Elevated peak systolic velocity. Maximal flow velocity of 159.4 cm/s. ICA/CCA Ratio: 1.0 VERTEBRAL ARTERIES: Right Vertebral Artery: Patent. Antegrade flow. Left Vertebral Artery: Patent. Antegrade flow. OTHER FINDINGS: None. IMPRESSION: No evidence of hemodynamically significant stenosis in the internal carotid arteries by peak systolic velocity criteria. Patent vertebral arteries with antegrade flow.
--- NOTE | 2018-01-15 14:46 | CON ---
DATE: 01/15/2018 NEUROLOGY CONSULT CHIEF COMPLAINT: Left side weakness. HISTORY OF PRESENT ILLNESS: This is an 82-year-old man with history of hypertension, dyslipidemia, type 2 diabetes, on Levemir and Amaryl who presented to the hospital because initially found to have difficulty in ambulation, felt like his left side in terms of his arm and leg were numb and weak. No change in sense, vision, taste, or smell. He underwent an MRI scan of the brain, which showed acute to subacute lacunar infarctions in the right frontal, parietal occipital lobes mostly in the right MCA and CHANGE CONTROL SPECIALIST distribution. His carotid ultrasound showed no significant hemodynamic stenosis, but it could suggest that there is still some possibly embolic phenomenon to his scattered infarcts on his right side of the brain. He is currently pending an echocardiogram from the heart. He is currently at bedside. He has left side 3+ to 4/5 left side weakness which corresponds to his right MCA and CH[employer] CONTROL SPECIALIST territory infarcts. He came also initially with hypernatremia and acute on chronic renal insufficiency which Nephrology is on board. He had periods of hypoglycemia as well during his hospital course. PAST MEDICAL HISTORY: Type 2 diabetes mellitus, hypertension, dyslipidemia. REVIEW OF SYSTEMS: A 14-point review of systems negative except in the HPI. MEDICATIONS: Reviewed by nurse reconciliation sheet. ALLERGIES: NO KNOWN DRUG ALLERGIES. SOCIAL HISTORY: No illicit drug use, smoking or EtOH abuse. FAMILY HISTORY: Noncontributory. PHYSICAL EXAMINATION: VITAL SIGNS: Temperature 98.3, pulse rate 63, blood pressure 159/75, respiratory rate 18, and oxygen saturation 99% on room air. GENERAL: The patient is sitting up in bed, in no acute distress. HEENT: Atraumatic and normocephalic. PERRLA. Extraocular muscles intact. NECK: Supple. No JVD. No adenopathy noted. LUNGS: Clear to auscultation. No adventitious sounds. HEART: S1 and S2. Normal rate and rhythm. No murmurs, rubs, or gallops. ABDOMEN: Soft, nontender, and nondistended. Bowel sounds are present. EXTREMITIES: No clubbing. No cyanosis. Peripheral pulses are 2+ felt bilaterally. NEUROLOGIC: The patient is alert and oriented to person, place, month, and year. Speech is fluent without errors, slight dysarthria, but no aphasia noted. Cranial nerves II-XII are intact. Motor exam has left sided 3+ to 4/5 weakness on the left upper and lower extremity, right-side is intact. Sensory: Decreased light tough and pinprick up to the calves bilaterally. Decreased vibration of the toes. DTRs are 2+ throughout and 1 at both knees and ankles. Toes are upgoing bilaterally. Coordination: Difficulty to do with left upper extremity due to left-sided weakness from CVA, right side is intact. Gait is deferred for now. LABORATORY DATA: Sodium is 145, potassium 3.8, chloride 111, carbon dioxide 21, BUN of 13, creatinine of , random glucose 61. 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 Carotid Doppler showed no significant hemodynamic stenosis, could be embolic from a cardiac source likely or fluctuations and changes in blood pressure. Also, he has diffuse atherosclerotic disease intracranially. He was previously on aspirin and Lipitor for stroke prevention. RECOMMENDATIONS: At this point, I recommend; 1. Given his scattered infarction in the right MCA and CH[employer] CONTROL SPECIALIST territory, we will recommend now anticoagulant such as Eliquis in addition to a baby aspirin plus Lipitor of 80 mg p.o. daily for stroke prevention. 2. Get a Cardiology consult on echocardiogram. 3. Acute physical therapy, speech therapy and occupational therapy, and we will recommend acute rehab. He is clinically stable from Neuro standpoint. Avoid hypoglycemic events. Keep his blood sugar between 140 to 180 and hemoglobin A1c and a diabetic diet. Once again, thank you for this consult. Case discussed with the patient as well as primary care physician. Pablito Brantley MD
--- NOTE | 2018-01-15 17:48 | CP.PCM.CON ---
History of Present Illness - History of Present Illness History of Present Illness: patient seen/examined. full consult to follow. patient presents with left sided weakness which began 6 days ago. He denies chest pain or dyspnea. physical examination and echocardiogram consistent with aortic stenosis. recommend medical therapy and antipletelet therapy. no evidence of atrial fibrillation. check neuro eval Past Patient History - Past Medical History & Family History Past Medical History?: Yes - Past Social History Smoking Status: Never Smoked - CARDIAC Hx Hypercholesterolemia: Yes Hx Hypertension: Yes - PULMONARY Hx Respiratory Disorders: No - NEUROLOGICAL Hx Neurological Disorder: No - HEENT Hx HEENT Problems: Yes Hx Cataracts: Yes Hx Glaucoma: Yes - RENAL Hx Chronic Kidney Disease: No - ENDOCRINE/METABOLIC Hx Diabetes Mellitus Type 2: Yes - HEMATOLOGICAL/ONCOLOGICAL Hx Blood Disorders: No Hx AIDS: No Hx Human Immunodeficiency Virus (HIV): No - INTEGUMENTARY Hx Dermatological Problems: No - MUSCULOSKELETAL/RHEUMATOLOGICAL Hx Falls: Yes (1st fall 4 days ago, slipped) - GASTROINTESTINAL Hx Gastrointestinal Disorders: Yes Hx Constipation: Yes - GENITOURINARY/GYNECOLOGICAL Hx Genitourinary Disorders: Yes Hx Prostate Problems: Yes - PSYCHIATRIC Hx Psychophysiologic Disorder: No Hx Substance Use: No - SURGICAL HISTORY Hx Surgeries: No - ANESTHESIA Hx Anesthesia: No Hx Anesthesia Reactions: No Hx Malignant Hyperthermia: No Has any member of the family had a problem w/ anesthesia?: No Meds Allergies/Adverse Reactions: Allergies Allergy/AdvReac Type Severity Reaction Status Date / Time No Known Allergies Allergy Verified 01/13/18 13:39 - Medications Medications: Current Medications Amlodipine Besylate (Norvasc) 10 mg PO DAILY [facility] Last Admin: 01/15/18 09:25 Dose: 10 mg Aspirin (Ecotrin) 81 mg PO DAILY [facility] Last Admin: 01/15/18 09:21 Dose: 81 mg Atorvastatin Calcium (Lipitor) 20 mg PO HS [facility] Last Admin: 01/14/18 22:31 Dose: 20 mg Finasteride (Proscar) 5 mg PO DAILY [facility] Last Admin: 01/15/18 09:21 Dose: 5 mg Glipizide (Glucotrol Xl) 5 mg PO BRK [facility] Last Admin: 01/15/18 09:22 Dose: 5 mg Sodium Chloride (Sodium Chloride 0.9%) 500 mls @ 125 mls/hr IV .Q4H [facility] Last Admin: 01/13/18 15:59 Dose: 125 mls/hr Insulin Detemir (Levemir) 45 units SC BID [facility] Last Admin: 01/15/18 09:23 Dose: 45 unit Metformin HCl (Glucophage) 500 mg PO BID [facility] Last Admin: 01/15/18 09:21 Dose: 500 mg Nystatin (Nystop Topical Powder) 1 applic TOP TID [facility] Last Admin: 01/15/18 09:21 Dose: 1 applic Tamsulosin HCl (Flomax) 0.4 mg PO DAILY [facility] Last Admin: 01/15/18 09:21 Dose: 0.4 mg Results - Vital Signs Recent Vital Signs: Last Vital Signs Temp 98.1 F 01/15/18 15:49 Pulse 72 01/15/18 16:55 Resp 20 01/15/18 15:49 BP 97/62 L 01/15/18 15:49 Pulse Ox 97 01/15/18 15:49 - Labs Result Diagrams: 01/15/18 05:47 01/15/18 05:47 Labs: Laboratory Results - last 24 hr 01/14/18 01/15/18 01/15/18 22:31 05:03 05:34 WBC RBC Hgb Hct MCV MCH MCHC RDW Plt Count MPV Neut % (Auto) Lymph % (Auto) [place] % (Auto) Eos % (Auto) Baso % (Auto) Neut # (Auto) Lymph # (Auto) [place] # (Auto) Eos # (Auto) Baso # (Auto) Sodium Potassium Chloride Carbon Dioxide Anion Gap BUN Creatinine Est GFR ( Amer) Est GFR (Non-Af Amer) POC Glucose (mg/dL) 130 H 58 L Random Glucose Hemoglobin A1c Calcium Total Bilirubin AST ALT Alkaline Phosphatase Total Creatine Kinase Total Protein Albumin Globulin Albumin/Globulin Ratio Triglycerides 124 Cholesterol 110 LDL Cholesterol Direct 47 HDL Cholesterol 33 01/15/18 01/15/18 01/15/18 05:47 05:47 06:35 WBC 8.5 RBC 4.38 L Hgb 12.1 Hct 37.8 MCV 86.4 MCH 27.7 MCHC 32.0 L RDW 14.4 Plt Count 190 MPV 8.3 Neut % (Auto) 73.6 Lymph % (Auto) 13.4 L [place] % (Auto) 9.4 Eos % (Auto) 2.9 Baso % (Auto) 0.7 Neut # (Auto) 6.3 Lymph # (Auto) 1.1 [place] # (Auto) 0.8 Eos # (Auto) 0.2 Baso # (Auto) 0.1 Sodium 145 Potassium 3.8 Chloride 111 H Carbon Dioxide 21 L Anion Gap 17 BUN 30 H Creatinine 0.8 Est GFR ( Amer) > 60 Est GFR (Non-Af Amer) > 60 POC Glucose (mg/dL) 108 Random Glucose 61 L Hemoglobin A1c Calcium 8.9 Total Bilirubin 1.7 H AST 51 ALT 63 Alkaline Phosphatase 68 Total Creatine Kinase 505 H Total Protein 6.2 L Albumin 3.2 L Globulin 3.0 Albumin/Globulin Ratio 1.1 Triglycerides Cholesterol LDL Cholesterol Direct HDL Cholesterol 01/15/18 01/15/18 12:00 17:13 WBC RBC Hgb Hct MCV MCH MCHC RDW Plt Count MPV Neut % (Auto) Lymph % (Auto) [place] % (Auto) Eos % (Auto) Baso % (Auto) Neut # (Auto) Lymph # (Auto) [place] # (Auto) Eos # (Auto) Baso # (Auto) Sodium Potassium Chloride Carbon Dioxide Anion Gap BUN Creatinine Est GFR ( Amer) Est GFR (Non-Af Amer) POC Glucose (mg/dL) 103 Random Glucose Hemoglobin A1c 9.0 H Calcium Total Bilirubin AST ALT Alkaline Phosphatase Total Creatine Kinase Total Protein Albumin Globulin Albumin/Globulin Ratio Triglycerides Cholesterol LDL Cholesterol Direct HDL Cholesterol
--- NOTE | 2018-01-15 17:48 | CP.PCM.CON ---
Past Patient History - Past Medical History & Family History Past Medical History?: Yes - Past Social History Smoking Status: Never Smoked - CARDIAC Hx Hypercholesterolemia: Yes Hx Hypertension: Yes - PULMONARY Hx Respiratory Disorders: No - NEUROLOGICAL Hx Neurological Disorder: No - HEENT Hx HEENT Problems: Yes Hx Cataracts: Yes Hx Glaucoma: Yes - RENAL Hx Chronic Kidney Disease: No - ENDOCRINE/METABOLIC Hx Diabetes Mellitus Type 2: Yes - HEMATOLOGICAL/ONCOLOGICAL Hx Blood Disorders: No Hx AIDS: No Hx Human Immunodeficiency Virus (HIV): No - INTEGUMENTARY Hx Dermatological Problems: No - MUSCULOSKELETAL/RHEUMATOLOGICAL Hx Falls: Yes (1st fall 4 days ago, slipped) - GASTROINTESTINAL Hx Gastrointestinal Disorders: Yes Hx Constipation: Yes - GENITOURINARY/GYNECOLOGICAL Hx Genitourinary Disorders: Yes Hx Prostate Problems: Yes - PSYCHIATRIC Hx Psychophysiologic Disorder: No Hx Substance Use: No - SURGICAL HISTORY Hx Surgeries: No - ANESTHESIA Hx Anesthesia: No Hx Anesthesia Reactions: No Hx Malignant Hyperthermia: No Has any member of the family had a problem w/ anesthesia?: No Meds Allergies/Adverse Reactions: Allergies Allergy/AdvReac Type Severity Reaction Status Date / Time No Known Allergies Allergy Verified 01/13/18 13:39 - Medications Medications: Current Medications Amlodipine Besylate (Norvasc) 10 mg PO DAILY [facility] Last Admin: 01/15/18 09:25 Dose: 10 mg Aspirin (Ecotrin) 81 mg PO DAILY [facility] Last Admin: 01/15/18 09:21 Dose: 81 mg Atorvastatin Calcium (Lipitor) 20 mg PO HS [facility] Last Admin: 01/14/18 22:31 Dose: 20 mg Finasteride (Proscar) 5 mg PO DAILY [facility] Last Admin: 01/15/18 09:21 Dose: 5 mg Glipizide (Glucotrol Xl) 5 mg PO BRK [facility] Last Admin: 01/15/18 09:22 Dose: 5 mg Sodium Chloride (Sodium Chloride 0.9%) 500 mls @ 125 mls/hr IV .Q4H [facility] Last Admin: 01/13/18 15:59 Dose: 125 mls/hr Insulin Detemir (Levemir) 45 units SC BID [facility] Last Admin: 01/15/18 09:23 Dose: 45 unit Metformin HCl (Glucophage) 500 mg PO BID [facility] Last Admin: 01/15/18 09:21 Dose: 500 mg Nystatin (Nystop Topical Powder) 1 applic TOP TID [facility] Last Admin: 01/15/18 09:21 Dose: 1 applic Tamsulosin HCl (Flomax) 0.4 mg PO DAILY [facility] Last Admin: 01/15/18 09:21 Dose: 0.4 mg Results - Vital Signs Recent Vital Signs: Last Vital Signs Temp 98.1 F 01/15/18 15:49 Pulse 72 01/15/18 16:55 Resp 20 01/15/18 15:49 BP 97/62 L 01/15/18 15:49 Pulse Ox 97 01/15/18 15:49 - Labs Result Diagrams: 01/15/18 05:47 01/15/18 05:47 Labs: Laboratory Results - last 24 hr 01/14/18 01/15/18 01/15/18 22:31 05:03 05:34 WBC RBC Hgb Hct MCV MCH MCHC RDW Plt Count MPV Neut % (Auto) Lymph % (Auto) [place]eves % (Auto) Eos % (Auto) Baso % (Auto) Neut # (Auto) Lymph # (Auto) [place] # (Auto) Eos # (Auto) Baso # (Auto) Sodium Potassium Chloride Carbon Dioxide Anion Gap BUN Creatinine Est GFR ( Amer) Est GFR (Non-Af Amer) POC Glucose (mg/dL) 130 H 58 L Random Glucose Hemoglobin A1c Calcium Total Bilirubin AST ALT Alkaline Phosphatase Total Creatine Kinase Total Protein Albumin Globulin Albumin/Globulin Ratio Triglycerides 124 Cholesterol 110 LDL Cholesterol Direct 47 HDL Cholesterol 33 01/15/18 01/15/18 01/15/18 05:47 05:47 06:35 WBC 8.5 RBC 4.38 L Hgb 12.1 Hct 37.8 MCV 86.4 MCH 27.7 MCHC 32.0 L RDW 14.4 Plt Count 190 MPV 8.3 Neut % (Auto) 73.6 Lymph % (Auto) 13.4 L [place] % (Auto) 9.4 Eos % (Auto) 2.9 Baso % (Auto) 0.7 Neut # (Auto) 6.3 Lymph # (Auto) 1.1 [place] # (Auto) 0.8 Eos # (Auto) 0.2 Baso # (Auto) 0.1 Sodium 145 Potassium 3.8 Chloride 111 H Carbon Dioxide 21 L Anion Gap 17 BUN 30 H Creatinine 0.8 Est GFR ( Amer) > 60 Est GFR (Non-Af Amer) > 60 POC Glucose (mg/dL) 108 Random Glucose 61 L Hemoglobin A1c Calcium 8.9 Total Bilirubin 1.7 H AST 51 ALT 63 Alkaline Phosphatase 68 Total Creatine Kinase 505 H Total Protein 6.2 L Albumin 3.2 L Globulin 3.0 Albumin/Globulin Ratio 1.1 Triglycerides Cholesterol LDL Cholesterol Direct HDL Cholesterol 01/15/18 01/15/18 12:00 17:13 WBC RBC Hgb Hct MCV MCH MCHC RDW Plt Count MPV Neut % (Auto) Lymph % (Auto) [place] % (Auto) Eos % (Auto) Baso % (Auto) Neut # (Auto) Lymph # (Auto) [place] # (Auto) Eos # (Auto) Baso # (Auto) Sodium Potassium Chloride Carbon Dioxide Anion Gap BUN Creatinine Est GFR ( Amer) Est GFR (Non-Af Amer) POC Glucose (mg/dL) 103 Random Glucose Hemoglobin A1c 9.0 H Calcium Total Bilirubin AST ALT Alkaline Phosphatase Total Creatine Kinase Total Protein Albumin Globulin Albumin/Globulin Ratio Triglycerides Cholesterol LDL Cholesterol Direct HDL Cholesterol
--- NOTE | 2018-01-15 20:43 | CARD ---
APPROVED REPORT EXAM: Two-dimensional and M-mode echocardiogram with Doppler and color Doppler. Other Information Quality : GoodRhythm : NSR INDICATION Falls 2D DIMENSIONS IVSd1.56 (0.7-1.1cm)LVDd3.79 (3.9-5.9cm) LVOT Diameter2.19 (1.8-2.4cm)PWd1.26 (0.7-1.1cm) IVSs2.06 (0.8-1.2cm)LVDs2.37 (2.5-4.0cm) FS (%) 37.3 %PWs1.84 (0.8-1.2cm) LVEF (%)55.0 (>50%) M-Mode DIMENSIONS Left Atrium (MM)3.91 (2.5-4.0cm)IVSd1.13 (0.7-1.1cm) Aortic Root3.59 (2.2-3.7cm)LVDd4.78 (4.0-5.6cm) Aortic Cusp Exc.0.81 (1.5-2.0cm)PWd1.59 (0.7-1.1cm) IVSs1.94 cmFS (%) 46 % LVDs2.59 (2.0-3.8cm)PWs1.94 cm Aortic Valve AoV Peak Llwwadxg912.2cm/sAoV VTI39.4cmAO Peak GR.25mmHg LVOT Peak Hqnfdfzg77.9cm/sLVOT VTI17.39cmAO Mean GR.15mmHg JENARO (VMAX)0.13qx1TTI (VTI)0.84cm2 Mitral Valve MV E Oahrxeiy70.6cm/sMV DECEL [id number] A Euuuctyf41.1cm/s MV LGI318yzP/A ratio0.6MVA (PHT)1.91cm2 TDI Lateral E' Peak V8.15cm/sMedial E' Peak V4.48cm/sE/Lateral E'6.0 E/Medial E'10.8 Pulmonary Valve PV Peak Mpzmonhs428.5cm/s Tricuspid Valve TR Peak Zudbnoog615fp/sRAP LZEMKMVF89thVbDS Peak Gr.15mmHg [id number] LEFT VENTRICLE The left ventricle is normal size. There is moderate to severe concentric left ventricular hypertrophy. The left ventricular function is normal. The left ventricular ejection fraction is within the normal range. There is normal LV segmental wall motion. Transmitral Doppler flow pattern is Grade I-abnormal relaxation pattern. RIGHT VENTRICLE The right ventricle is normal size. There is normal right ventricular wall thickness. The right ventricular systolic function is normal. ATRIA The left atrium size is normal. The right atrium size is normal. AORTIC VALVE The aortic valve is not well visualized and appears severly sclerotic There is trace aortic regurgitation. There is trace valvular aortic stenosis. MITRAL VALVE The mitral valve is moderately thickened. There is no mitral valve stenosis. Mitral regurgitation is trace. TRICUSPID VALVE The tricuspid valve is normal in structure. There is no tricuspid valve regurgitation noted. PULMONIC VALVE The pulmonary valve is normal in structure. There is no pulmonic valvular regurgitation. GREAT VESSELS The aortic root is normal in size. The IVC was not visualized. PERICARDIAL EFFUSION There is a trace loculated anterior pericardial effusion. <Conclusion> The left ventricle is normal size. There is moderate to severe concentric left ventricular hypertrophy. The left ventricular function is normal. The left ventricular ejection fraction is within the normal range. There is normal LV segmental wall motion. Transmitral Doppler flow pattern is Grade I-abnormal relaxation pattern.
[2018-01-16 06:02] LABS: BASO # 0.1 K/uL (0.0-0.2); BASO % 0.7 % (0.0-2.0); EOS # 0.2 K/uL (0.0-0.7); EOS % 2.8 % (0.0-4.0); HEMOGLOBIN 12.3 g/dL (12.0-18.0); MEAN CELL VOLUME 86.2 fl (80.0-94.0); MEAN CORPUSCULAR HEMOGLOBIN 27.8 pg (27.0-31.0); MEAN CORPUSCULAR HGB CONC 32.3 g/dL (33.0-37.0); MEAN PLATELET VOLUME 8.3 fl (7.2-11.7); MONO # 0.9 K/uL (0.0-0.8); MONO % 10.9 % (0.0-10.0); NEUT # 6.3 K/uL (1.8-7.0); NEUT % 73.6 % (50.0-75.0); NRBC % 0.1 % (0.0-0.0); RBC 4.43 Mil/uL (4.40-5.90); RED CELL DISTRIBUTION WIDTH 14.4 % (11.5-14.5); WHITE BLOOD COUNT 8.6 K/uL (4.8-10.8)
[2018-01-16 06:26] LABS: ALB/GLOB RATIO 1.2 (1.0-2.1); ALBUMIN 3.4 g/dL (3.5-5.0); ALT/SGPT 60 U/L (21-72); AST/SGOT 40 U/L (17-59); BLOOD UREA NITROGEN 20 mg/dl (9-20); GFR AFRICAN-AMERICAN > 60; GFR NON-AFRICAN AMERICAN > 60
--- NOTE | 2018-01-16 07:44 | CP.PCM.PN ---
Subjective - Date & Time of Evaluation Date of Evaluation: 01/16/18 Time of Evaluation: 07:44 - Subjective Subjective: pt doing well. dx w/ r sided diffuse infarct yesterdayvia mri. neuro and cardio consults appriciated. pt still w/ 4/5 lue/lle movements, 5/5 rue/rle. no headache, cp, dyspnea Objective - Vital Signs/Intake and Output Vital Signs (last 24 hours): Temp Pulse Resp BP Pulse Ox 98.1 F 69 18 131/62 97 01/16/18 04:53 01/16/18 04:53 01/16/18 04:53 01/16/18 04:53 01/16/18 04:53 - Medications Medications: Current Medications Amlodipine Besylate (Norvasc) 10 mg PO DAILY [facility] Last Admin: 01/15/18 09:25 Dose: 10 mg Aspirin (Ecotrin) 81 mg PO DAILY [facility] Last Admin: 01/15/18 09:21 Dose: 81 mg Atorvastatin Calcium (Lipitor) 20 mg PO HS [facility] Last Admin: 01/15/18 22:24 Dose: 20 mg Finasteride (Proscar) 5 mg PO DAILY [facility] Last Admin: 01/15/18 09:21 Dose: 5 mg Glipizide (Glucotrol Xl) 5 mg PO BRK [facility] Last Admin: 01/15/18 09:22 Dose: 5 mg Sodium Chloride (Sodium Chloride 0.9%) 500 mls @ 125 mls/hr IV .Q4H [facility] Last Admin: 01/13/18 15:59 Dose: 125 mls/hr Insulin Detemir (Levemir) 45 units SC BID [facility] Last Admin: 01/15/18 17:55 Dose: 45 unit Metformin HCl (Glucophage) 500 mg PO BID [facility] Last Admin: 01/15/18 17:55 Dose: 500 mg Nystatin (Nystop Topical Powder) 1 applic TOP TID [facility] Last Admin: 01/15/18 17:54 Dose: 1 applic Tamsulosin HCl (Flomax) 0.4 mg PO DAILY [facility] Last Admin: 01/15/18 09:21 Dose: 0.4 mg - Labs Labs: 01/16/18 04:30 01/16/18 04:30 PT 11.5 Seconds (9.8-13.1) 01/13/18 14:45 INR 1.0 (0.9-1.2) 01/13/18 14:45 APTT 27.0 Seconds (25.6-37.1) 01/13/18 14:45 - Constitutional Appears: Well, Non-toxic, No Acute Distress - Head Exam Head Exam: ATRAUMATIC, NORMAL INSPECTION, NORMOCEPHALIC - Eye Exam Eye Exam: EOMI, Normal appearance, PERRL Pupil Exam: NORMAL ACCOMODATION, PERRL - ENT Exam ENT Exam: Mucous Membranes Moist, Normal Exam - Neck Exam Neck Exam: Full ROM, Normal Inspection. absent: Lymphadenopathy - Respiratory Exam Respiratory Exam: Clear to Ausculation Bilateral, NORMAL BREATHING PATTERN - Cardiovascular Exam Cardiovascular Exam: REGULAR RHYTHM, RRR, +S1, +S2. absent: Murmur - GI/Abdominal Exam GI & Abdominal Exam: Soft, Normal Bowel Sounds. absent: Tenderness - Extremities Exam Extremities Exam: Full ROM, Normal Capillary Refill, Normal Inspection. absent : Joint Swelling, Pedal Edema - Back Exam Back Exam: NORMAL INSPECTION - Neurological Exam Neurological Exam: Alert, Awake, CN II-XII Intact, Normal Gait, Oriented x3 Neuro motor strength exam: Left Upper Extremity: 4, Right Upper Extremity: 5, Left Lower Extremity: 4, Right Lower Extremity: 5 - Psychiatric Exam Psychiatric exam: Normal Affect, Normal Mood - Skin Skin Exam: Dry, Intact, Normal Color, Warm Assessment and Plan (1) Fall Status: Acute (2) Dehydration Status: Acute (3) Weakness of left arm Status: Acute (4) Weakness of left leg Status: Acute - Assessment and Plan (Free Text) Assessment: (1) Fall Assessment and Plan: pt//ot izabela placement Status: Acute (2) Dehydration Assessment and Plan: cont ivf lkely cause of elev bun/cpk neprho consult bun/cpk improving Status: Acute 3-r sided cva w/ left hemiplagia- neuro consult pt/ot all imaging reviewed pt to be started on eliquis 4-dvt ppx-scd and ae hose has been in place since admission start eliquis-cleared by cardio NIHSS Stroke Scale - Date/Time Evaluation Performed Date Performed: 01/16/18 Time Performed: 08:25 When Was NIHSS Performed: 7-10 days - How Severe is the Stroke Level of Consciousness: 0=Alert LOC to Questions: 0=Both comments correct LOC to commands: 0=Obeys both correctly Best Gaze: 0=Normal Visual: 0=No visual loss Facial: 0=Normal Motor Arm - Left: 1=Drift noted before 10 sec Motor Arm - Right: 0=No drift Motor Leg - Left: 1=Drift before 5 sec Motor Leg - Right: 0=No drift Limb Ataxia: 0=Absent Sensory: 0=Normal Best Language: 0=No aphasia Dysarthia: 0=Normal articulation Extinction & Inattention (Neglect): 0=Normal, no object Score: 2 Severity Of Stroke: 1-4 = Minor Stroke
[2018-01-16] MEDS: GlipiZIDE 5 mg SR Tab PO SCH (08:10)
--- NOTE | 2018-01-16 08:47 | EEG ---
DATE: ELECTROENCEPHALOGRAM REPORT TECHNICAL INFORMATION: EEG required using 16-channel placed according 10-20 International electrode system. Continuous spike detection was used throughout the record. All electrodes were referenced to A1/A2 and P1/P2 electrodes. Background rhythm showed an 8 to 10 Hz posterior dominant rhythm that is reactive, symmetric, and attenuates with eye opening. There was a normal amount beta captured bifrontally. There are no clinical or subclinical seizures. There are no focal epileptiform discharges noted. Activation maneuvers did not produced any abnormal activity. There was continuous left bifrontal temporal slowing was noted. IMPRESSION: This is an abnormal awake and drowsy electroencephalogram with presence of left bifrontal temporal slowing indicative of white matter disease or lesion or persistent slowing. Clinical correlation is required. Monica Peace MD
[2018-01-16] MEDS: Insulin Detemir 100 Units/ml Inj SC SCH ×2 (09:13→17:27)
--- NOTE | 2018-01-16 09:31 | CP.PCM.PN ---
Subjective - Date & Time of Evaluation Date of Evaluation: 01/16/18 Time of Evaluation: 09:29 - Subjective Subjective: Awake , eating breakfast feels good no GI complaints Objective - Vital Signs/Intake and Output Vital Signs (last 24 hours): Temp Pulse Resp BP Pulse Ox 98.5 F 71 20 144/73 96 01/16/18 08:00 01/16/18 09:05 01/16/18 08:00 01/16/18 09:05 01/16/18 08:00 - Medications Medications: Current Medications Amlodipine Besylate (Norvasc) 10 mg PO DAILY [facility] Last Admin: 01/16/18 09:05 Dose: 10 mg Apixaban (Eliquis) 5 mg PO BID [facility] PRN Reason: Protocol Aspirin (Ecotrin) 81 mg PO DAILY [facility] Last Admin: 01/16/18 09:05 Dose: 81 mg Atorvastatin Calcium (Lipitor) 20 mg PO HS [facility] Last Admin: 01/15/18 22:24 Dose: 20 mg Finasteride (Proscar) 5 mg PO DAILY [facility] Last Admin: 01/16/18 09:05 Dose: 5 mg Glipizide (Glucotrol Xl) 5 mg PO BRK [facility] Last Admin: 01/16/18 08:10 Dose: 5 mg Sodium Chloride (Sodium Chloride 0.9%) 500 mls @ 125 mls/hr IV .Q4H [facility] Last Admin: 01/13/18 15:59 Dose: 125 mls/hr Insulin Detemir (Levemir) 45 units SC BID [facility] Last Admin: 01/16/18 09:13 Dose: 45 unit Metformin HCl (Glucophage) 500 mg PO BID [facility] Last Admin: 01/16/18 09:06 Dose: 500 mg Nystatin (Nystop Topical Powder) 1 applic TOP TID [facility] Last Admin: 01/16/18 09:06 Dose: 1 applic Tamsulosin HCl (Flomax) 0.4 mg PO DAILY [facility] Last Admin: 01/16/18 09:06 Dose: 0.4 mg - Labs Labs: 01/16/18 04:30 01/16/18 04:30 PT 11.5 Seconds (9.8-13.1) 01/13/18 14:45 INR 1.0 (0.9-1.2) 01/13/18 14:45 APTT 27.0 Seconds (25.6-37.1) 01/13/18 14:45 - Constitutional Appears: No Acute Distress - ENT Exam ENT Exam: Mucous Membranes Moist - Respiratory Exam Respiratory Exam: NORMAL BREATHING PATTERN. absent: Chest Wall Tenderness - Cardiovascular Exam Cardiovascular Exam: RRR. absent: Gallop, JVD, Rubs - GI/Abdominal Exam GI & Abdominal Exam: Soft, Normal Bowel Sounds. absent: Guarding - Extremities Exam Extremities Exam: absent: Calf Tenderness - Back Exam Back Exam: absent: CVA tenderness (L), CVA tenderness (R) - Neurological Exam Neurological Exam: Alert - Psychiatric Exam Psychiatric exam: Normal Affect - Skin Skin Exam: absent: Cyanosis Assessment and Plan - Assessment and Plan (Free Text) Assessment: Acute Kidney Injury (N17.9) likely due to pre-renal state Hypernatremia, mild rhabdomyolysis HTN (I12.9) abnormal LFT with hyperbilirubinemia fall DM recovering from [place], kidney function better.
[2018-01-16 12:24] VITALS: RESP 18
[2018-01-16 16:07] VITALS: BP 145/66; PULSE 73; TEMP 98.6
[2018-01-16 17:25] VITALS: O2SAT 95
--- NOTE | 2018-01-16 18:52 | CP.PCM.DIS ---
Provider - Provider Date of Admission: 01/13/18 16:54 Attending physician: Surendra Gill MD Time Spent in preparation of Discharge (in minutes): 15 Diagnosis - Discharge Diagnosis (1) Fall Status: Acute (2) Dehydration Status: Acute (3) Weakness of left arm Status: Acute (4) Weakness of left leg Status: Acute Hospital Course - Lab Results Lab Results: Most Recent Lab Values WBC 8.6 K/uL (4.8-10.8) 01/16/18 04:30 RBC 4.43 Mil/uL (4.40-5.90) 01/16/18 04:30 Hgb 12.3 g/dL (12.0-18.0) 01/16/18 04:30 Hct 38.2 % (35.0-51.0) 01/16/18 04:30 MCV 86.2 fl (80.0-94.0) 01/16/18 04:30 MCH 27.8 pg (27.0-31.0) 01/16/18 04:30 MCHC 32.3 g/dL (33.0-37.0) L 01/16/18 04:30 RDW 14.4 % (11.5-14.5) 01/16/18 04:30 Plt Count 180 K/uL (130-400) 01/16/18 04:30 MPV 8.3 fl (7.2-11.7) 01/16/18 04:30 Neut % (Auto) 73.6 % (50.0-75.0) 01/16/18 04:30 Lymph % (Auto) 12.0 % (20.0-40.0) L 01/16/18 04:30 [place] % (Auto) 10.9 % (0.0-10.0) H 01/16/18 04:30 Eos % (Auto) 2.8 % (0.0-4.0) 01/16/18 04:30 Baso % (Auto) 0.7 % (0.0-2.0) 01/16/18 04:30 Neut # (Auto) 6.3 K/uL (1.8-7.0) 01/16/18 04:30 Lymph # (Auto) 1.0 K/uL (1.0-4.3) 01/16/18 04:30 [place] # (Auto) 0.9 K/uL (0.0-0.8) H 01/16/18 04:30 Eos # (Auto) 0.2 K/uL (0.0-0.7) 01/16/18 04:30 Baso # (Auto) 0.1 K/uL (0.0-0.2) 01/16/18 04:30 Neutrophils % (Manual) 87 % (42-75) H 01/13/18 14:45 Lymphocytes % (Manual) 7 % (20-50) L 01/13/18 14:45 Monocytes % (Manual) 6 % (0-10) 01/13/18 14:45 Platelet Estimate Normal (NORMAL) 01/13/18 14:45 Anisocytosis (manual) Slight 01/13/18 14:45 PT 11.5 Seconds (9.8-13.1) 01/13/18 14:45 INR 1.0 (0.9-1.2) 01/13/18 14:45 APTT 27.0 Seconds (25.6-37.1) 01/13/18 14:45 Sodium 144 mmol/l (132-148) 01/16/18 04:30 Potassium 3.6 MMOL/L (3.6-5.0) 01/16/18 04:30 Chloride 110 mmol/L (98-107) H 01/16/18 04:30 Carbon Dioxide 22 mmol/L (22-30) 01/16/18 04:30 Anion Gap 16 (10-20) 01/16/18 04:30 BUN 20 mg/dl (9-20) 01/16/18 04:30 Creatinine 0.8 mg/dl (0.8-1.5) 01/16/18 04:30 Est GFR ( Amer) > 60 01/16/18 04:30 Est GFR (Non-Af Amer) > 60 01/16/18 04:30 POC Glucose (mg/dL) 170 mg/dL (65-110) H 01/16/18 11:32 Random Glucose 50 mg/dL (75-110) L 01/16/18 04:30 Hemoglobin A1c 9.0 % (4.2-6.5) H 01/15/18 12:00 Calcium 9.0 mg/dL (8.4-10.2) 01/16/18 04:30 Total Bilirubin 1.4 mg/dl (0.2-1.3) H 01/16/18 04:30 AST 40 U/L (17-59) 01/16/18 04:30 ALT 60 U/L (21-72) 01/16/18 04:30 Alkaline Phosphatase 71 U/L (38-126) 01/16/18 04:30 Total Creatine Kinase 337 U/L (55-170) H 01/16/18 04:30 Total Protein 6.2 G/DL (6.3-8.2) L 01/16/18 04:30 Albumin 3.4 g/dL (3.5-5.0) L 01/16/18 04:30 Globulin 2.9 gm/dL (2.2-3.9) 01/16/18 04:30 Albumin/Globulin Ratio 1.2 (1.0-2.1) 01/16/18 04:30 Triglycerides 124 mg/DL (0-149) 01/15/18 05:03 Cholesterol 110 mg/dL (0-199) 01/15/18 05:03 LDL Cholesterol Direct 47 mg/dL (0-129) 01/15/18 05:03 HDL Cholesterol 33 MG/DL (30-70) 01/15/18 05:03 - Hospital Course Hospital Course: neuro/cardio start ady pt/ot for 6nr mri, echo, eeg, carotid us Discharge Exam - Head Exam Head Exam: ATRAUMATIC, NORMAL INSPECTION, NORMOCEPHALIC Discharge Plan - Follow Up Plan Condition: GOOD Disposition: REHAB FACILITY/REHAB UNIT Additional Instructions: Needs assistance w/ all daily activities. Fall precaution. Heart healthy, low fat, low cholesterol, moderate consistent carbohydrate diet.With left sided weakness. final dx- r sided cva w/ left sided weakness. f/u rmg on 6nr, rte dprn, meds per med rec Referrals: Surendra Gill MD [Staff Provider] - Campbell Wilburn MD [Staff Provider] - Pablito Brantley MD [Staff Provider] - Barbara Asencio MD [Staff Provider] -
== END 2018-01-16 18:30 | DRG 65 ==
LOC: H.ER 13:37 → H.ERHOLD 16:54 → H.MEDSURG1 18:46 → H.TEL 01-15 14:56
PROVIDERS: ADMIT Family Medicine; ATTEND Family Medicine
DX: I63.49 Cerebral infarction due to embolism of other cerebral artery (principal); E87.0 Hyperosmolality and hypernatremia; E11.649 Type 2 diabetes mellitus with hypoglycemia without coma; M62.82 Rhabdomyolysis; R17 Unspecified jaundice; G81.94 Hemiplegia, unspecified affecting left nondominant side; I63.411 Cerebral infarction due to embolism of right middle cerebral artery; E86.0 Dehydration; I35.0 Nonrheumatic aortic (valve) stenosis; E78.5 Hyperlipidemia, unspecified; I10 Essential (primary) hypertension; N28.9 Disorder of kidney and ureter, unspecified; R94.5 Abnormal results of liver function studies; E78.00 Pure hypercholesterolemia, unspecified

== ENCOUNTER 2018-01-16 17:36 | Inpatient (IN) | payer MEDICARE, BC ==
[2018-01-16 18:36] VITALS: BMI 25.8
[2018-01-16] MEDS ORDERED: INSULIN DETEMIR 45 UNIT SC SCH (21:00)
[2018-01-16] MEDS: Insulin Detemir 100 Units/ml Inj SC SCH (23:28)
[2018-01-17 06:45] LABS: BASO # 0.1 K/uL (0.0-0.2); BASO % 0.5 % (0.0-2.0); EOS # 0.2 K/uL (0.0-0.7); EOS % 1.8 % (0.0-4.0); LYMPH # 0.8 K/uL (1.0-4.3); LYMPH % 8.2 % (20.0-40.0); MEAN CELL VOLUME 84.8 fl (80.0-94.0); MEAN CORPUSCULAR HEMOGLOBIN 28.5 pg (27.0-31.0); MEAN CORPUSCULAR HGB CONC 33.6 g/dL (33.0-37.0); MEAN PLATELET VOLUME 8.4 fl (7.2-11.7); MONO # 1.5 K/uL (0.0-0.8); MONO % 15.3 % (0.0-10.0); NEUT # 7.4 K/uL (1.8-7.0); NEUT % 74.2 % (50.0-75.0); NRBC % 0.1 % (0.0-0.0); PLATELET COUNT 193 K/uL (130-400); RBC 4.22 Mil/uL (4.40-5.90); RED CELL DISTRIBUTION WIDTH 14.3 % (11.5-14.5); WHITE BLOOD COUNT 9.9 K/uL (4.8-10.8)
[2018-01-17 06:56] LABS: ALB/GLOB RATIO 1.1 (1.0-2.1); ALBUMIN 3.4 g/dL (3.5-5.0); ALT/SGPT 46 U/L (21-72); AST/SGOT 36 U/L (17-59); BLOOD UREA NITROGEN 15 mg/dl (9-20); CALCIUM 8.8 mg/dL (8.4-10.2); GFR AFRICAN-AMERICAN > 60; GFR NON-AFRICAN AMERICAN > 60
[2018-01-17] MEDS: GlipiZIDE 5 mg SR Tab PO SCH (06:56)
--- NOTE | 2018-01-17 07:59 | CP.PCM.HP ---
History of Present Illness - History of Present Illness History of Present Illness: pt admitted to [facility] for rehab after r sided cva w/ left hemiplagia. no f/c, n/v/ d. still w/ 3-03/01 lue/lle. no other complaints offered. Present on Admission - Present on Admission Any Indicators Present on Admission: No Review of Systems - Neurological Neurological: As Per HPI, Abnormal Gait, Weakness Past Patient History - Past Medical History & Family History Past Medical History?: Yes - Past Social History Smoking Status: Never Smoked - CARDIAC Hx Hypercholesterolemia: Yes Hx Hypertension: Yes - PULMONARY Hx Respiratory Disorders: No - NEUROLOGICAL Hx Neurological Disorder: Yes HX Cerebrovascular Accident: Yes - HEENT Hx HEENT Problems: Yes Hx Cataracts: Yes Hx Glaucoma: Yes Other/Comment: wears eyeglasses for reading. - RENAL Other/Comment: acute kidney injury, hypernatremia - ENDOCRINE/METABOLIC Hx Diabetes Mellitus Type 2: Yes - HEMATOLOGICAL/ONCOLOGICAL Hx Blood Disorders: No Hx AIDS: No Hx Human Immunodeficiency Virus (HIV): No - INTEGUMENTARY Hx Dermatological Problems: No - MUSCULOSKELETAL/RHEUMATOLOGICAL Hx Falls: Yes (2x before admission) - GASTROINTESTINAL Hx Gastrointestinal Disorders: Yes Hx Constipation: Yes - GENITOURINARY/GYNECOLOGICAL Hx Genitourinary Disorders: Yes Hx Prostate Problems: Yes - PSYCHIATRIC Hx Substance Use: No - SURGICAL HISTORY Hx Surgeries: No - ANESTHESIA Hx Anesthesia: No Hx Anesthesia Reactions: No Hx Malignant Hyperthermia: No Has any member of the family had a problem w/ anesthesia?: No Meds Allergies/Adverse Reactions: Allergies Allergy/AdvReac Type Severity Reaction Status Date / Time No Known Allergies Allergy Verified 01/16/18 18:38 Physical Exam - Constitutional Appears: Well, Non-toxic, No Acute Distress - Head Exam Head Exam: ATRAUMATIC, NORMAL INSPECTION, NORMOCEPHALIC - Eye Exam Eye Exam: EOMI, Normal appearance, PERRL Pupil Exam: NORMAL ACCOMODATION, PERRL - ENT Exam ENT Exam: Mucous Membranes Moist, Normal Exam - Neck Exam Neck exam: Positive for: Normal Inspection - Respiratory Exam Respiratory Exam: Clear to Auscultation Bilateral, NORMAL BREATHING PATTERN - Cardiovascular Exam Cardiovascular Exam: REGULAR RHYTHM, RRR, +S1, +S2 - GI/Abdominal Exam GI & Abdominal Exam: Normal Bowel Sounds, Soft. absent: Tenderness - Extremities Exam Extremities exam: Positive for: full ROM, normal capillary refill, normal inspection, pedal pulses present Additional comments: lue/lle 3-4/5 - Back Exam Back exam: NORMAL INSPECTION - Neurological Exam Neurological exam: Alert, CN II-XII Intact, Normal Gait, Oriented x3, Reflexes Normal - Psychiatric Exam Psychiatric exam: Normal Affect, Normal Mood - Skin Skin Exam: Dry, Intact, Normal Color, Warm Results - Vital Signs Recent Vital Signs: Last Vital Signs Temp 97.5 F L 01/16/18 20:00 Pulse 84 01/16/18 20:00 Resp 20 01/16/18 20:00 BP 141/74 01/16/18 20:00 Pulse Ox 96 01/16/18 20:00 - Labs Result Diagrams: 01/17/18 05:45 01/17/18 05:45 Labs: Laboratory Results - last 24 hr 01/16/18 01/17/18 01/17/18 21:16 05:12 05:45 WBC 9.9 RBC 4.22 L Hgb 12.0 Hct 35.7 MCV 84.8 MCH 28.5 MCHC 33.6 RDW 14.3 Plt Count 193 MPV 8.4 Neut % (Auto) 74.2 Lymph % (Auto) 8.2 L [place] % (Auto) 15.3 H Eos % (Auto) 1.8 Baso % (Auto) 0.5 Neut # (Auto) 7.4 H Lymph # (Auto) 0.8 L [place] # (Auto) 1.5 H Eos # (Auto) 0.2 Baso # (Auto) 0.1 Sodium Potassium Chloride Carbon Dioxide Anion Gap BUN Creatinine Est GFR ( Amer) Est GFR (Non-Af Amer) POC Glucose (mg/dL) 77 51 L Random Glucose Calcium Total Bilirubin AST ALT Alkaline Phosphatase Total Protein Albumin Globulin Albumin/Globulin Ratio 01/17/18 01/17/18 05:45 06:03 WBC RBC Hgb Hct MCV MCH MCHC RDW Plt Count MPV Neut % (Auto) Lymph % (Auto) [place] % (Auto) Eos % (Auto) Baso % (Auto) Neut # (Auto) Lymph # (Auto) [place] # (Auto) Eos # (Auto) Baso # (Auto) Sodium 141 Potassium 3.8 Chloride 105 Carbon Dioxide 25 Anion Gap 15 BUN 15 Creatinine 0.9 Est GFR ( Amer) > 60 Est GFR (Non-Af Amer) > 60 POC Glucose (mg/dL) 147 H Random Glucose 81 Calcium 8.8 Total Bilirubin 1.7 H AST 36 ALT 46 Alkaline Phosphatase 67 Total Protein 6.5 Albumin 3.4 L Globulin 3.1 Albumin/Globulin Ratio 1.1 Assessment & Plan (1) CVA (cerebral vascular accident) Assessment and Plan: ady cardio/neuro pt/ot physiatry Status: Acute (2) DVT prophylaxis Assessment and Plan: scd nad ae hose ady Status: Acute Decision To Admit - Pt Status Changed To: Hospital Disposition Of: Inpatient - Admit Certification Admit to Inpatient:: After my assessment, the patient will require hospitalization for at least two midnights. This is because of the severity of symptoms shown, intensity of services needed, and/or the medical risk in this patient being treated as an outpatient. - . Bed Request Type: Acute Rehab Admitting Physician: Surendra Gill
[2018-01-17] MEDS: Insulin Detemir 100 Units/ml Inj SC SCH ×2 (08:37→22:04)
[2018-01-17 11:32] LABS: BASOPHIL 1 % (0-2); EOSINOPHIL 2 % (0-7); LYMPHOCYTE 10 % (20-50); MONOCYTE 14 % (0-10); NEUTROPHIL 73 % (42-75); PLATELET ESTIMATE NORMAL (NORMAL); TOTAL CELLS COUNTED 100
--- NOTE | 2018-01-17 11:56 | PCM.OPOC ---
Physiatry Overall Plan of Care - Overall Plan of Care Estimated Length of Stay in Weeks: 3 Rehab Impairment: Mobility, Gait, Speech, Balance, Coordination Etiologic Diagnosis: Cerebrovascular Accident Rehab/Medical Prognosis: Fair - Anticipated Interventions Physical Therapy:: Yes Occupational Therapy:: Yes Speech Therapy:: Yes Recreational Therapy:: Yes - Therapy Goals Bed Mobility: Independent Ambulation: Contact Guard Functional Positional Changes:: Supervision - Functional Outcomes Functional Outcomes: fair - Discharge Plan Identification of Barriers to Discharge: Cognition Discharge Destination: Home
--- NOTE | 2018-01-17 12:22 | PSY.TMCNF ---
Nursing - Vital Signs Vital Signs (Last 8 hours): Vital Signs 01/17/18 01/17/18 01/17/18 08:00 08:36 11:06 Temperature 98.4 F 98.4 F Pulse Rate 79 79 Respiratory 20 20 Rate Blood Pressure 139/68 139/68 139/68 O2 Sat by Pulse 94 L Oximetry Pain: 0 - Precautions: Precautions: Fall Prevention - Medications/Other Issues Comment: -(+) Multiple abrasions covered with scab on BLE and arms,. 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 Wilcox - Toileting Toileting: Dependent - Bladder Management Bladder Pattern: Incontinent Voiding Method: Toilet, Urinal, Diaper Bladder Management: Dependent Frequency of Accidents: >5 - Bowel Management Bowel Pattern: Constipated Bowel Management: Dependent Frequency of Accidents: 0 - Transfers Transfers: Maximal Assistance - ADL's ADL's: Dependent - Patient/Family Teaching Comments: Care post CVA and safety precautions - Goals/Time Frame Comments: Per multidisciplianry care plan and goals - Provider Provider: Germaine GUYn RN CRRN Physical Therapy - Bed Mobility Bed Mobility: Maximum Assistance - Transfers Wheelchair to Mat: Verbal Cues, Maximum Assistance Sit to Stand: Verbal Cues, Maximum Assistance - Ambulation Level of Assistance: Not Tested - Stair Negotiation Stairs: Level of Assistance: Not Tested - Standing Balance Static Stand: Maximal Assistance Dynamic Stand: Unable to assess/perform - Pain Comment: reports of L knee - Insight/Carryover Insight/Carryover: Good - Patient/Family Education Comment: Pt education provided for increased safety awareness and proper techniques during functional mobility training. - Assessment/Plan Assessment: PT IE complete this AM. Pt currently requires max A for bed mobility , max A for transfers, max A for static standing in // bars. Pt previously (I) in all functional mobility skills. Pt will benefit from skilled PT intervention to address deficits, reduce fall risk, and maximize functional independence. D/ c to [facility]O likely. - Goals Timeframe: 3 weeks Goals: Sit < > supine CGA. Sit < > stand with CGA. Bed < > chair transfers with CGA. Pt will ambulate 100 ft with CGA using NBQC. Pt ascend/descend flight of stairs with min A using handrail - Provider Therapist: Mayra Fuller PT DPT License Number: [id number] Occupational Therapy - Arousal/Attention/Orientation Patient Orientation: Person, Place - Pain Comment: reports of L knee - Insight/Carryover Insight/Carryover: Good - Patient/Family Education Comment: Pt education provided for increased safety awareness and proper techniques during functional mobility training. - Assessment/Plan Assessment: PT IE complete this AM. Pt currently requires max A for bed mobility , max A for transfers, max A for static standing in // bars. Pt previously (I) in all functional mobility skills. Pt will benefit from skilled PT intervention to address deficits, reduce fall risk, and maximize functional independence. D/ c to JONO likely. - Goals Timeframe: 3 weeks Goals: Sit < > supine CGA. Sit < > stand with CGA. Bed < > chair transfers with CGA. Pt will ambulate 100 ft with CGA using NBQC. Pt ascend/descend flight of stairs with min A using handrail Speech Therapy - Plan Assessment: PT IE complete this AM. Pt currently requires max A for bed mobility , max A for transfers, max A for static standing in // bars. Pt previously (I) in all functional mobility skills. Pt will benefit from skilled PT intervention to address deficits, reduce fall risk, and maximize functional independence. D/ c to JONO likely. Recreational Therapy - Assessment Assessment/Plan: PT IE complete this AM. Pt currently requires max A for bed mobility, max A for transfers, max A for static standing in // bars. Pt previously (I) in all functional mobility skills. Pt will benefit from skilled PT intervention to address deficits, reduce fall risk, and maximize functional independence. D/c to [facility] likely. Nutrition - Current Diet Current Diet/ Supplement/ Feedings: Moderate consistent CHO heart healthy diet - Appetite Percent Meal Consumed: 50-74% - Comments Comments: Care post CVA and safety precautions - Assessment/Goals/Time Frame Assessment/Goals/Time Frame: -(+) Multiple abrasions covered with scab on BLE and arms,. 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
[2018-01-17] MEDS: Bacitracin/Neomycin/Polymyxin 30GM OINT TOP SCH ×2 (14:00→22:05)
--- NOTE | 2018-01-17 21:19 | CP.PCM.PN ---
Subjective - Date & Time of Evaluation Date of Evaluation: 01/17/18 Time of Evaluation: 12:30 - Subjective Subjective: patinet with arm and leg weakness Objective - Vital Signs/Intake and Output Vital Signs (last 24 hours): Temp Pulse Resp BP Pulse Ox 98.4 F 79 20 139/68 98 01/17/18 11:06 01/17/18 11:06 01/17/18 11:06 01/17/18 11:06 01/17/18 09:05 - Medications Medications: Current Medications Amlodipine Besylate (Norvasc) 10 mg PO DAILY [facility] Last Admin: 01/17/18 08:36 Dose: 10 mg Apixaban (Eliquis) 5 mg PO BID [facility] PRN Reason: Protocol Last Admin: 01/17/18 17:25 Dose: 5 mg Aspirin (Ecotrin) 81 mg PO DAILY [facility] Last Admin: 01/17/18 08:36 Dose: 81 mg Atorvastatin Calcium (Lipitor) 20 mg PO HS [facility] Last Admin: 01/16/18 23:29 Dose: 20 mg Finasteride (Proscar) 5 mg PO DAILY [facility] Last Admin: 01/17/18 08:36 Dose: 5 mg Glipizide (Glucotrol Xl) 5 mg PO ACB [facility] Last Admin: 01/17/18 06:56 Dose: 5 mg Insulin Detemir (Levemir) 45 units SC Q12H [facility] Last Admin: 01/17/18 08:37 Dose: 45 units Metformin HCl (Glucophage) 500 mg PO BID [facility] Last Admin: 01/17/18 17:26 Dose: 500 mg Neomycin/Polymyxin/Bacitracin (Neosporin Antibiotic Oint) 1 applic TOP Q8 [facility] Last Admin: 01/17/18 14:00 Dose: 1 applic Nystatin (Nystop Topical Powder) 1 applic TOP Q8 [facility] Last Admin: 01/17/18 13:07 Dose: 1 applic Tamsulosin HCl (Flomax) 0.4 mg PO HS [facility] Last Admin: 01/16/18 23:28 Dose: Not Given - Labs Labs: 01/17/18 05:45 01/17/18 05:45 - Head Exam Head Exam: ATRAUMATIC, NORMAL INSPECTION, NORMOCEPHALIC - Eye Exam Eye Exam: EOMI, Normal appearance, PERRL - ENT Exam ENT Exam: Mucous Membranes Moist, Normal Exam - Neck Exam Neck Exam: Full ROM, Normal Inspection. absent: Lymphadenopathy - Respiratory Exam Respiratory Exam: Clear to Ausculation Bilateral, NORMAL BREATHING PATTERN - Cardiovascular Exam Cardiovascular Exam: REGULAR RHYTHM, +S1, +S2. absent: Murmur - GI/Abdominal Exam GI & Abdominal Exam: Bruit - Rectal Exam Rectal Exam: NORMAL INSPECTION - Extremities Exam Extremities Exam: Full ROM, Normal Inspection - Back Exam Back Exam: NORMAL INSPECTION - Neurological Exam Neurological Exam: Alert, Awake Neuro motor strength exam: Left Upper Extremity: 2/1, Right Upper Extremity: 3, Left Lower Extremity: 2/1, Right Lower Extremity: 3 - Psychiatric Exam Psychiatric exam: Normal Affect, Normal Mood - Skin Skin Exam: Diaphoretic, Warm Assessment and Plan (1) CVA (cerebral vascular accident) Assessment & Plan: plan for physical, occupational and rec and speech therapy Status: Acute (2) DVT prophylaxis Status: Acute (3) Dehydration Status: Acute (4) Fall Status: Acute (5) Weakness of left arm Status: Acute (6) Weakness of left leg Status: Acute
--- NOTE | 2018-01-17 21:22 | CP.PCM.CON ---
History of Present Illness - History of Present Illness History of Present Illness: 82 year old admitted with CVa and left hemiparesis Review of Systems - Musculoskeletal Musculoskeletal: Abnormal Gait, Muscle Weakness - Neurological Neurological: Abnormal Gait, Lack of Coordination Past Patient History - Past Medical History & Family History Past Medical History?: Yes - Past Social History Smoking Status: Never Smoked - CARDIAC Hx Hypercholesterolemia: Yes Hx Hypertension: Yes - PULMONARY Hx Respiratory Disorders: No - NEUROLOGICAL Hx Neurological Disorder: Yes HX Cerebrovascular Accident: Yes - HEENT Hx HEENT Problems: Yes Hx Cataracts: Yes Hx Glaucoma: Yes Other/Comment: wears eyeglasses for reading. - RENAL Other/Comment: acute kidney injury, hypernatremia - ENDOCRINE/METABOLIC Hx Diabetes Mellitus Type 2: Yes - HEMATOLOGICAL/ONCOLOGICAL Hx Blood Disorders: No Hx AIDS: No Hx Human Immunodeficiency Virus (HIV): No - INTEGUMENTARY Hx Dermatological Problems: No - MUSCULOSKELETAL/RHEUMATOLOGICAL Hx Falls: Yes (2x before admission) - GASTROINTESTINAL Hx Gastrointestinal Disorders: Yes Hx Constipation: Yes - GENITOURINARY/GYNECOLOGICAL Hx Genitourinary Disorders: Yes Hx Prostate Problems: Yes - PSYCHIATRIC Hx Substance Use: No - SURGICAL HISTORY Hx Surgeries: No - ANESTHESIA Hx Anesthesia: No Hx Anesthesia Reactions: No Hx Malignant Hyperthermia: No Has any member of the family had a problem w/ anesthesia?: No Meds Allergies/Adverse Reactions: Allergies Allergy/AdvReac Type Severity Reaction Status Date / Time No Known Allergies Allergy Verified 01/16/18 18:38 - Medications Medications: Current Medications Amlodipine Besylate (Norvasc) 10 mg PO DAILY [facility] Last Admin: 01/17/18 08:36 Dose: 10 mg Apixaban (Eliquis) 5 mg PO BID [facility] PRN Reason: Protocol Last Admin: 01/17/18 17:25 Dose: 5 mg Aspirin (Ecotrin) 81 mg PO DAILY [facility] Last Admin: 01/17/18 08:36 Dose: 81 mg Atorvastatin Calcium (Lipitor) 20 mg PO HS [facility] Last Admin: 01/16/18 23:29 Dose: 20 mg Finasteride (Proscar) 5 mg PO DAILY [facility] Last Admin: 01/17/18 08:36 Dose: 5 mg Glipizide (Glucotrol Xl) 5 mg PO ACB [facility] Last Admin: 01/17/18 06:56 Dose: 5 mg Insulin Detemir (Levemir) 45 units SC Q12H [facility] Last Admin: 01/17/18 08:37 Dose: 45 units Metformin HCl (Glucophage) 500 mg PO BID [facility] Last Admin: 01/17/18 17:26 Dose: 500 mg Neomycin/Polymyxin/Bacitracin (Neosporin Antibiotic Oint) 1 applic TOP Q8 [facility] Last Admin: 01/17/18 14:00 Dose: 1 applic Nystatin (Nystop Topical Powder) 1 applic TOP Q8 [facility] Last Admin: 01/17/18 13:07 Dose: 1 applic Tamsulosin HCl (Flomax) 0.4 mg PO HS [facility] Last Admin: 01/16/18 23:28 Dose: Not Given Physical Exam - Head Exam Head Exam: ATRAUMATIC, NORMAL INSPECTION, NORMOCEPHALIC - Eye Exam Eye Exam: EOMI, Normal appearance, PERRL - ENT Exam ENT Exam: Mucous Membranes Moist, Normal Exam - Respiratory Exam Respiratory Exam: NORMAL BREATHING PATTERN - Cardiovascular Exam Cardiovascular Exam: REGULAR RHYTHM - GI/Abdominal Exam GI & Abdominal Exam: Normal Bowel Sounds - Rectal Exam Rectal Exam: NORMAL INSPECTION - Exam Exam: Circumcision, NORMAL INSPECTION - Back Exam Back exam: NORMAL INSPECTION - Neurological Exam Neurological exam: Alert, CN II-XII Intact Additional comments: left leg and left arm weakness strength2/5 - Psychiatric Exam Psychiatric exam: Normal Affect, Normal Mood Results - Vital Signs Recent Vital Signs: Last Vital Signs Temp 98.4 F 01/17/18 11:06 Pulse 79 01/17/18 11:06 Resp 20 01/17/18 11:06 BP 139/68 01/17/18 11:06 Pulse Ox 98 01/17/18 09:05 - Labs Result Diagrams: 01/17/18 05:45 01/17/18 05:45 Labs: Laboratory Results - last 24 hr 01/17/18 01/17/18 01/17/18 05:12 05:45 05:45 WBC 9.9 RBC 4.22 L Hgb 12.0 Hct 35.7 MCV 84.8 MCH 28.5 MCHC 33.6 RDW 14.3 Plt Count 193 MPV 8.4 Neut % (Auto) 74.2 Lymph % (Auto) 8.2 L Brule % (Auto) 15.3 H Eos % (Auto) 1.8 Baso % (Auto) 0.5 Neut # (Auto) 7.4 H Lymph # (Auto) 0.8 L Brule # (Auto) 1.5 H Eos # (Auto) 0.2 Baso # (Auto) 0.1 Neutrophils % (Manual) 73 Lymphocytes % (Manual) 10 L Monocytes % (Manual) 14 H Eosinophils % (Manual) 2 Basophils % (Manual) 1 Platelet Estimate Normal RBC Morphology Normal Sodium 141 Potassium 3.8 Chloride 105 Carbon Dioxide 25 Anion Gap 15 BUN 15 Creatinine 0.9 Est GFR ( Amer) > 60 Est GFR (Non-Af Amer) > 60 POC Glucose (mg/dL) 51 L Random Glucose 81 Calcium 8.8 Total Bilirubin 1.7 H AST 36 ALT 46 Alkaline Phosphatase 67 Total Protein 6.5 Albumin 3.4 L Globulin 3.1 Albumin/Globulin Ratio 1.1 01/17/18 01/17/18 01/17/18 06:03 11:18 16:05 WBC RBC Hgb Hct MCV MCH MCHC RDW Plt Count MPV Neut % (Auto) Lymph % (Auto) Brule % (Auto) Eos % (Auto) Baso % (Auto) Neut # (Auto) Lymph # (Auto) Brule # (Auto) Eos # (Auto) Baso # (Auto) Neutrophils % (Manual) Lymphocytes % (Manual) Monocytes % (Manual) Eosinophils % (Manual) Basophils % (Manual) Platelet Estimate RBC Morphology Sodium Potassium Chloride Carbon Dioxide Anion Gap BUN Creatinine Est GFR ( Amer) Est GFR (Non-Af Amer) POC Glucose (mg/dL) 147 H 167 H 140 H Random Glucose Calcium Total Bilirubin AST ALT Alkaline Phosphatase Total Protein Albumin Globulin Albumin/Globulin Ratio Assessment & Plan (1) CVA (cerebral vascular accident) Assessment and Plan: plan for physical, occupational, rec and speech therapy for range of motion, strengthening, transfers and gait training . to write for overall plan of care Status: Acute (2) DVT prophylaxis Status: Acute (3) Dehydration Status: Acute (4) Fall Status: Acute (5) Weakness of left arm Status: Acute (6) Weakness of left leg Status: Acute
[2018-01-18] MEDS: Bacitracin/Neomycin/Polymyxin 30GM OINT TOP SCH ×3 (05:42→22:04)
[2018-01-18] MEDS: GlipiZIDE 5 mg SR Tab PO SCH (07:06)
[2018-01-18] MEDS: Insulin Detemir 100 Units/ml Inj SC SCH ×2 (08:54→21:03)
[2018-01-18] MEDS ORDERED: Insulin Detemir 100 Units/ml Inj SC ONE (21:06)
[2018-01-19] MEDS: Bacitracin/Neomycin/Polymyxin 30GM OINT TOP SCH ×3 (05:24→21:52)
[2018-01-19 07:08] LABS: BASO # 0.1 K/uL (0.0-0.2); BASO % 0.7 % (0.0-2.0); EOS # 0.4 K/uL (0.0-0.7); EOS % 5.5 % (0.0-4.0); HEMOGLOBIN 11.2 g/dL (12.0-18.0); LYMPH % 12.7 % (20.0-40.0); MEAN CELL VOLUME 84.8 fl (80.0-94.0); MEAN CORPUSCULAR HEMOGLOBIN 28.5 pg (27.0-31.0); MEAN CORPUSCULAR HGB CONC 33.6 g/dL (33.0-37.0); MEAN PLATELET VOLUME 8.8 fl (7.2-11.7); MONO # 0.9 K/uL (0.0-0.8); MONO % 11.4 % (0.0-10.0); NEUT # 5.4 K/uL (1.8-7.0); NEUT % 69.7 % (50.0-75.0); NRBC % 0.1 % (0.0-0.0); RBC 3.93 Mil/uL (4.40-5.90); RED CELL DISTRIBUTION WIDTH 14.5 % (11.5-14.5); WHITE BLOOD COUNT 7.7 K/uL (4.8-10.8)
[2018-01-19 07:13] LABS: ALBUMIN 3.1 g/dL (3.5-5.0); ALT/SGPT 44 U/L (21-72); AST/SGOT 30 U/L (17-59); BLOOD UREA NITROGEN 26 mg/dl (9-20); CALCIUM 8.8 mg/dL (8.4-10.2); GFR AFRICAN-AMERICAN > 60; GFR NON-AFRICAN AMERICAN > 60
[2018-01-19] MEDS ORDERED: Insulin Detemir 100 Units/ml Inj SC SCH ×2 (07:18→21:00)
--- NOTE | 2018-01-19 07:19 | CP.PCM.PN ---
Subjective - Date & Time of Evaluation Date of Evaluation: 01/19/18 Time of Evaluation: 07:19 - Subjective Subjective: dogin well. no f/c, n/v/d. left side remains 4/5, right side 5/5 no headache, cp. bw noted. gucose running low will titrate levemir Objective - Vital Signs/Intake and Output Vital Signs (last 24 hours): Temp Pulse Resp BP Pulse Ox 97.7 F 72 20 105/51 L 100 01/18/18 20:00 01/18/18 20:00 01/18/18 20:00 01/18/18 20:00 01/18/18 20:00 - Medications Medications: Current Medications Amlodipine Besylate (Norvasc) 10 mg PO DAILY [facility] Last Admin: 01/18/18 08:56 Dose: 10 mg Apixaban (Eliquis) 5 mg PO BID [facility] PRN Reason: Protocol Last Admin: 01/18/18 16:44 Dose: 5 mg Aspirin (Ecotrin) 81 mg PO DAILY [facility] Last Admin: 01/18/18 08:55 Dose: 81 mg Atorvastatin Calcium (Lipitor) 20 mg PO HS [facility] Last Admin: 01/18/18 22:03 Dose: 20 mg Docusate Sodium (Colace) 100 mg PO BID [facility] Finasteride (Proscar) 5 mg PO DAILY [facility] Last Admin: 01/18/18 08:55 Dose: 5 mg Glipizide (Glucotrol Xl) 5 mg PO ACB [facility] Last Admin: 01/18/18 07:06 Dose: 5 mg Insulin Detemir (Levemir) 20 units SC Q12H [facility] Metformin HCl (Glucophage) 500 mg PO BID [facility] Last Admin: 01/18/18 16:44 Dose: 500 mg Neomycin/Polymyxin/Bacitracin (Neosporin Antibiotic Oint) 1 applic TOP Q8 [facility] Last Admin: 01/19/18 05:24 Dose: 1 applic Nystatin (Nystop Topical Powder) 1 applic TOP Q8 [facility] Last Admin: 01/19/18 05:23 Dose: 1 applic Tamsulosin HCl (Flomax) 0.4 mg PO HS [facility] Last Admin: 01/18/18 22:03 Dose: 0.4 mg - Labs Labs: 01/17/18 05:45 01/19/18 05:50 - Constitutional Appears: Well, Non-toxic, No Acute Distress - Head Exam Head Exam: ATRAUMATIC, NORMAL INSPECTION, NORMOCEPHALIC - Eye Exam Eye Exam: EOMI, Normal appearance, PERRL Pupil Exam: NORMAL ACCOMODATION, PERRL - ENT Exam ENT Exam: Mucous Membranes Moist, Normal Exam - Neck Exam Neck Exam: Full ROM, Normal Inspection. absent: Lymphadenopathy - Respiratory Exam Respiratory Exam: Clear to Ausculation Bilateral, NORMAL BREATHING PATTERN - Cardiovascular Exam Cardiovascular Exam: REGULAR RHYTHM, RRR, +S1, +S2. absent: Murmur - GI/Abdominal Exam GI & Abdominal Exam: Soft, Normal Bowel Sounds. absent: Tenderness - Extremities Exam Extremities Exam: Full ROM, Normal Capillary Refill, Normal Inspection. absent : Joint Swelling, Pedal Edema - Back Exam Back Exam: NORMAL INSPECTION - Neurological Exam Neurological Exam: Abnormal Gait, Alert, Awake, CN II-XII Intact, Oriented x3 Neuro motor strength exam: Left Upper Extremity: 4, Right Upper Extremity: 5, Left Lower Extremity: 4, Right Lower Extremity: 5 - Psychiatric Exam Psychiatric exam: Normal Affect, Normal Mood - Skin Skin Exam: Dry, Intact, Normal Color, Warm Assessment and Plan (1) CVA (cerebral vascular accident) Status: Acute (2) DVT prophylaxis Status: Acute - Assessment and Plan (Free Text) Assessment: (1) CVA (cerebral vascular accident) Assessment and Plan: eliquis cardio/neuro pt/ot physiatry Status: Acute (2) DVT prophylaxis Assessment and Plan: scd nad ae quoce ady Status: Acute [id number] levemire, diet control, riss, fsbg
[2018-01-19] MEDS: GlipiZIDE 5 mg SR Tab PO SCH (07:27)
--- NOTE | 2018-01-19 19:16 | CP.PCM.PN ---
Subjective - Date & Time of Evaluation Date of Evaluation: 01/19/18 Time of Evaluation: 14:00 - Subjective Subjective: patient is feeling fine, just weakness no specific complaints Objective - Vital Signs/Intake and Output Vital Signs (last 24 hours): Temp Pulse Resp BP Pulse Ox 98.2 F 73 21 126/56 L 98 01/19/18 10:00 01/19/18 10:00 01/19/18 10:00 01/19/18 10:00 01/19/18 10:00 - Medications Medications: Current Medications Amlodipine Besylate (Norvasc) 10 mg PO DAILY [facility] Last Admin: 01/19/18 08:21 Dose: 10 mg Apixaban (Eliquis) 5 mg PO BID [facility] PRN Reason: Protocol Last Admin: 01/19/18 16:19 Dose: 5 mg Aspirin (Ecotrin) 81 mg PO DAILY [facility] Last Admin: 01/19/18 08:21 Dose: 81 mg Atorvastatin Calcium (Lipitor) 20 mg PO [facility] Last Admin: 01/18/18 22:03 Dose: 20 mg Docusate Sodium (Colace) 100 mg PO BID [facility] Last Admin: 01/19/18 16:19 Dose: 100 mg Finasteride (Proscar) 5 mg PO DAILY [facility] Last Admin: 01/19/18 08:21 Dose: 5 mg Glipizide (Glucotrol Xl) 5 mg PO ACB [facility] Last Admin: 01/19/18 07:27 Dose: 5 mg Insulin Detemir (Levemir) 20 units SC Q12@0900,2100 [facility] Metformin HCl (Glucophage) 500 mg PO BID [facility] Last Admin: 01/19/18 16:19 Dose: 500 mg Neomycin/Polymyxin/Bacitracin (Neosporin Antibiotic Oint) 1 applic TOP Q8 [facility] Last Admin: 01/19/18 13:33 Dose: 1 applic Nystatin (Nystop Topical Powder) 1 applic TOP Q8 [facility] Last Admin: 01/19/18 13:32 Dose: 1 applic Tamsulosin HCl (Flomax) 0.4 mg PO HS [facility] Last Admin: 01/18/18 22:03 Dose: 0.4 mg - Labs Labs: 01/19/18 05:50 01/19/18 05:50 - Head Exam Head Exam: ATRAUMATIC, NORMAL INSPECTION, NORMOCEPHALIC - Eye Exam Eye Exam: EOMI, Normal appearance Pupil Exam: NORMAL ACCOMODATION - ENT Exam ENT Exam: Mucous Membranes Moist, Normal Exam - Neck Exam Neck Exam: Full ROM, Normal Inspection - Respiratory Exam Respiratory Exam: Clear to Ausculation Bilateral, NORMAL BREATHING PATTERN - Cardiovascular Exam Cardiovascular Exam: REGULAR RHYTHM - GI/Abdominal Exam GI & Abdominal Exam: Soft, Normal Bowel Sounds - Rectal Exam Rectal Exam: NORMAL INSPECTION - Exam External exam: NORMAL EXTERNAL EXAM - Extremities Exam Extremities Exam: Full ROM, Normal Capillary Refill, Normal Inspection - Back Exam Back Exam: NORMAL INSPECTION - Neurological Exam Neurological Exam: Alert, Awake Neuro motor strength exam: Left Upper Extremity: 3, Right Upper Extremity: 4, Left Lower Extremity: 3, Right Lower Extremity: 4 - Psychiatric Exam Psychiatric exam: Normal Affect, Normal Mood - Skin Skin Exam: Dry, Intact Assessment and Plan (1) CVA (cerebral vascular accident) Assessment & Plan: plan for physical, occupational, rec and speech therapy monitor skin, rash, apply meds. Status: Acute (2) DVT prophylaxis Status: Acute (3) Dehydration Status: Acute (4) Fall Status: Acute (5) Weakness of left arm Status: Acute (6) Weakness of left leg Status: Acute
[2018-01-19] MEDS ORDERED: Dextrose 50% SYRINGE Inj (50 ml) IVP PRN (21:25)
[2018-01-20] MEDS: Bacitracin/Neomycin/Polymyxin 30GM OINT TOP SCH ×3 (05:45→21:57)
[2018-01-20] MEDS: GlipiZIDE 5 mg SR Tab PO SCH (06:57)
[2018-01-20] MEDS: Insulin Detemir 100 Units/ml Inj SC SCH (21:56)
[2018-01-21] MEDS: Bacitracin/Neomycin/Polymyxin 30GM OINT TOP SCH ×2 (06:16→14:05)
[2018-01-21] MEDS: GlipiZIDE 5 mg SR Tab PO SCH (08:00)
--- NOTE | 2018-01-21 10:09 | CP.PCM.PN ---
Subjective - Date & Time of Evaluation Date of Evaluation: 01/21/18 Time of Evaluation: 10:08 - Subjective Subjective: pt doing well. left side still appro x4/5 but pt feels stronger. glucose more stable. pt admits to poor diet at home. no f/c, n/v/d Objective - Vital Signs/Intake and Output Vital Signs (last 24 hours): Temp Pulse Resp BP Pulse Ox 97.9 F 66 19 138/85 97 01/21/18 09:54 01/21/18 09:54 01/21/18 09:54 01/21/18 09:54 01/21/18 09:54 - Medications Medications: Current Medications Amlodipine Besylate (Norvasc) 10 mg PO DAILY [facility] Last Admin: 01/21/18 09:07 Dose: 10 mg Apixaban (Eliquis) 5 mg PO BID [facility] PRN Reason: Protocol Last Admin: 01/21/18 09:05 Dose: 5 mg Aspirin (Ecotrin) 81 mg PO DAILY [facility] Last Admin: 01/21/18 09:07 Dose: 81 mg Atorvastatin Calcium (Lipitor) 20 mg PO HS [facility] Last Admin: 01/20/18 21:55 Dose: 20 mg Dextrose (Dextrose 50% Inj) 50 ml IVP PRN PRN PRN Reason: If BS < 50 & pt. unresponsive. Docusate Sodium (Colace) 100 mg PO BID [facility] Last Admin: 01/21/18 09:07 Dose: 100 mg Finasteride (Proscar) 5 mg PO DAILY [facility] Last Admin: 01/21/18 09:06 Dose: 5 mg Glipizide (Glucotrol Xl) 5 mg PO ACB [facility] Last Admin: 01/21/18 08:00 Dose: 5 mg Insulin Detemir (Levemir) 20 units SC HS [facility] Last Admin: 01/20/18 21:56 Dose: 20 units Metformin HCl (Glucophage) 500 mg PO BID [facility] Last Admin: 01/21/18 09:06 Dose: 500 mg Neomycin/Polymyxin/Bacitracin (Neosporin Antibiotic Oint) 1 applic TOP Q8 [facility] Last Admin: 01/21/18 06:16 Dose: 1 applic Nystatin (Nystop Topical Powder) 1 applic TOP Q8 [facility] Last Admin: 01/21/18 06:15 Dose: 1 applic Tamsulosin HCl (Flomax) 0.4 mg PO [facility] Last Admin: 01/20/18 21:55 Dose: 0.4 mg - Labs Labs: 01/19/18 05:50 01/19/18 05:50 - Constitutional Appears: Well, Non-toxic, No Acute Distress - Head Exam Head Exam: ATRAUMATIC, NORMAL INSPECTION, NORMOCEPHALIC - Eye Exam Eye Exam: EOMI, Normal appearance, PERRL Pupil Exam: NORMAL ACCOMODATION, PERRL - ENT Exam ENT Exam: Mucous Membranes Moist, Normal Exam - Neck Exam Neck Exam: Full ROM, Normal Inspection. absent: Lymphadenopathy - Respiratory Exam Respiratory Exam: Clear to Ausculation Bilateral, NORMAL BREATHING PATTERN - Cardiovascular Exam Cardiovascular Exam: REGULAR RHYTHM, RRR, +S1, +S2. absent: Murmur - GI/Abdominal Exam GI & Abdominal Exam: Soft, Normal Bowel Sounds. absent: Tenderness - Extremities Exam Extremities Exam: Full ROM, Normal Capillary Refill, Normal Inspection. absent : Joint Swelling, Pedal Edema - Back Exam Back Exam: NORMAL INSPECTION - Neurological Exam Neurological Exam: Abnormal Gait, Alert, Awake, CN II-XII Intact, Oriented x3 Neuro motor strength exam: Left Upper Extremity: 4, Right Upper Extremity: 5, Left Lower Extremity: 4, Right Lower Extremity: 5 - Psychiatric Exam Psychiatric exam: Normal Affect, Normal Mood - Skin Skin Exam: Dry, Intact, Normal Color, Warm Assessment and Plan (1) CVA (cerebral vascular accident) Status: Acute (2) DVT prophylaxis Status: Acute - Assessment and Plan (Free Text) Assessment: (1) CVA (cerebral vascular accident) Assessment and Plan: eliquruslan cardio/neuro pt/ot physiatry Status: Acute (2) DVT prophylaxis Assessment and Plan: scd nad ae hose ady Status: Acute [id number] levemir, diet control, riss, fsbg dietary teaching
--- NOTE | 2018-01-21 14:24 | CP.PCM.PN ---
Subjective - Date & Time of Evaluation Date of Evaluation: 01/21/18 Time of Evaluation: 14:23 - Subjective Subjective: Dr Aleman coverage for Dr Christianson He is in room denies sob/cp or fever he denies abdominal pain continue current care to resume therapies tomorrow Objective - Vital Signs/Intake and Output Vital Signs (last 24 hours): Temp Pulse Resp BP Pulse Ox 97.9 F 66 19 138/85 97 01/21/18 09:54 01/21/18 09:54 01/21/18 09:54 01/21/18 09:54 01/21/18 09:54 - Medications Medications: Current Medications Amlodipine Besylate (Norvasc) 10 mg PO DAILY [facility] Last Admin: 01/21/18 09:07 Dose: 10 mg Apixaban (Eliquis) 5 mg PO BID [facility] PRN Reason: Protocol Last Admin: 01/21/18 09:05 Dose: 5 mg Aspirin (Ecotrin) 81 mg PO DAILY [facility] Last Admin: 01/21/18 09:07 Dose: 81 mg Atorvastatin Calcium (Lipitor) 20 mg PO HS [facility] Last Admin: 01/20/18 21:55 Dose: 20 mg Dextrose (Dextrose 50% Inj) 50 ml IVP PRN PRN PRN Reason: If BS < 50 & pt. unresponsive. Docusate Sodium (Colace) 100 mg PO BID [facility] Last Admin: 01/21/18 09:07 Dose: 100 mg Finasteride (Proscar) 5 mg PO DAILY [facility] Last Admin: 01/21/18 09:06 Dose: 5 mg Glipizide (Glucotrol Xl) 5 mg PO ACB [facility] Last Admin: 01/21/18 08:00 Dose: 5 mg Insulin Detemir (Levemir) 20 units SC HS [facility] Last Admin: 01/20/18 21:56 Dose: 20 units Metformin HCl (Glucophage) 500 mg PO BID [facility] Last Admin: 01/21/18 09:06 Dose: 500 mg Neomycin/Polymyxin/Bacitracin (Neosporin Antibiotic Oint) 1 applic TOP Q8 [facility] Last Admin: 01/21/18 14:05 Dose: 1 applic Nystatin (Nystop Topical Powder) 1 applic TOP Q8 [facility] Last Admin: 01/21/18 14:04 Dose: 1 applic Tamsulosin HCl (Flomax) 0.4 mg PO HS [facility] Last Admin: 01/20/18 21:55 Dose: 0.4 mg - Labs Labs: 01/19/18 05:50 01/19/18 05:50
[2018-01-21] MEDS: Insulin Detemir 100 Units/ml Inj SC SCH (21:18)
[2018-01-21] MEDS: Neomycin/Polymyxin/Bacitracin OINT 0.5OZ TP SCH (21:20)
[2018-01-22] MEDS: Neomycin/Polymyxin/Bacitracin OINT 0.5OZ TP SCH ×3 (06:17→21:31)
[2018-01-22] MEDS: GlipiZIDE 5 mg SR Tab PO SCH (06:55)
[2018-01-22] MEDS: Insulin Detemir 100 Units/ml Inj SC SCH (21:24)
[2018-01-23] MEDS: Neomycin/Polymyxin/Bacitracin OINT 0.5OZ TP SCH ×3 (06:32→21:13)
[2018-01-23] MEDS: GlipiZIDE 5 mg SR Tab PO SCH (06:59)
--- NOTE | 2018-01-23 07:20 | CP.PCM.PN ---
Subjective - Date & Time of Evaluation Date of Evaluation: 01/23/18 Time of Evaluation: 07:20 - Subjective Subjective: doingwell, left sided movements about the same. no f/c, nv//d. glucose noted Objective - Vital Signs/Intake and Output Vital Signs (last 24 hours): Temp Pulse Resp BP Pulse Ox 96.9 F L 60 20 133/63 98 01/22/18 20:39 01/22/18 20:39 01/22/18 20:39 01/22/18 20:39 01/22/18 20:39 - Medications Medications: Current Medications Amlodipine Besylate (Norvasc) 10 mg PO DAILY [facility] Last Admin: 01/22/18 08:48 Dose: 10 mg Apixaban (Eliquis) 5 mg PO BID [facility] PRN Reason: Protocol Last Admin: 01/22/18 17:15 Dose: 5 mg Aspirin (Ecotrin) 81 mg PO DAILY [facility] Last Admin: 01/22/18 08:52 Dose: 81 mg Atorvastatin Calcium (Lipitor) 20 mg PO HS [facility] Last Admin: 01/22/18 21:14 Dose: 20 mg Dextrose (Dextrose 50% Inj) 50 ml IVP PRN PRN PRN Reason: If BS < 50 & pt. unresponsive. Docusate Sodium (Colace) 100 mg PO BID [facility] Last Admin: 01/22/18 17:15 Dose: 100 mg Finasteride (Proscar) 5 mg PO DAILY [facility] Last Admin: 01/22/18 08:47 Dose: 5 mg Glipizide (Glucotrol Xl) 5 mg PO ACB [facility] Last Admin: 01/23/18 06:59 Dose: 5 mg Insulin Detemir (Levemir) 20 units SC HS [facility] Last Admin: 01/22/18 21:24 Dose: 20 units Lactulose (Enulose) 20 gm PO HS PRN PRN Reason: Constipation Last Admin: 01/22/18 21:28 Dose: 20 gm Metformin HCl (Glucophage) 500 mg PO BID [facility] Last Admin: 01/22/18 17:15 Dose: 500 mg Neomycin/Polymyxin/Bacitracin (Neosporin Oint) 1 applic TP Q8 [facility] Last Admin: 01/23/18 06:32 Dose: 1 applic Nystatin (Nystop Topical Powder) 1 applic TOP Q8 [facility] Last Admin: 02/27/18 06:31 Dose: 1 applic Tamsulosin HCl (Flomax) 0.4 mg PO HS [facility] Last Admin: 01/22/18 21:14 Dose: 0.4 mg - Labs Labs: 01/19/18 05:50 01/19/18 05:50 - Constitutional Appears: Well, Non-toxic, No Acute Distress - Head Exam Head Exam: ATRAUMATIC, NORMAL INSPECTION, NORMOCEPHALIC - Eye Exam Eye Exam: EOMI, Normal appearance, PERRL Pupil Exam: NORMAL ACCOMODATION, PERRL - ENT Exam ENT Exam: Mucous Membranes Moist, Normal Exam - Neck Exam Neck Exam: Full ROM, Normal Inspection. absent: Lymphadenopathy - Respiratory Exam Respiratory Exam: Clear to Ausculation Bilateral, NORMAL BREATHING PATTERN - Cardiovascular Exam Cardiovascular Exam: REGULAR RHYTHM, RRR, +S1, +S2. absent: Murmur - GI/Abdominal Exam GI & Abdominal Exam: Soft, Normal Bowel Sounds. absent: Tenderness - Extremities Exam Extremities Exam: Full ROM, Normal Capillary Refill, Normal Inspection. absent : Joint Swelling, Pedal Edema - Back Exam Back Exam: NORMAL INSPECTION - Neurological Exam Neurological Exam: Alert, Awake, CN II-XII Intact, Normal Gait, Oriented x3 Neuro motor strength exam: Left Upper Extremity: 4, Right Upper Extremity: 5, Left Lower Extremity: 4, Right Lower Extremity: 5 - Psychiatric Exam Psychiatric exam: Normal Affect, Normal Mood - Skin Skin Exam: Dry, Intact, Normal Color, Warm Assessment and Plan (1) CVA (cerebral vascular accident) Status: Acute (2) DVT prophylaxis Status: Acute - Assessment and Plan (Free Text) Assessment: (1) CVA (cerebral vascular accident) Assessment and Plan: eliquis cardio/neuro pt/ot physiatry Status: Acute (2) DVT prophylaxis Assessment and Plan: scd nad ae quoce ady Status: Acute [id number] levemir, diet control, riss, fsbg dietary teaching
--- NOTE | 2018-01-23 19:18 | CP.PCM.PN ---
Subjective - Date & Time of Evaluation Date of Evaluation: 01/23/18 Time of Evaluation: 11:00 - Subjective Subjective: no complaints of pain, just slightly withdrawn Objective - Vital Signs/Intake and Output Vital Signs (last 24 hours): Temp Pulse Resp BP Pulse Ox 97.3 F L 79 20 134/70 98 01/23/18 07:55 01/23/18 15:35 01/23/18 07:55 01/23/18 08:37 01/23/18 15:35 - Medications Medications: Current Medications Amlodipine Besylate (Norvasc) 10 mg PO DAILY [facility] Last Admin: 01/23/18 08:37 Dose: 10 mg Apixaban (Eliquis) 5 mg PO BID [facility] PRN Reason: Protocol Last Admin: 01/23/18 17:28 Dose: 5 mg Aspirin (Ecotrin) 81 mg PO DAILY [facility] Last Admin: 01/23/18 08:39 Dose: 81 mg Atorvastatin Calcium (Lipitor) 20 mg PO HS [facility] Last Admin: 01/22/18 21:14 Dose: 20 mg Dextrose (Dextrose 50% Inj) 50 ml IVP PRN PRN PRN Reason: If BS < 50 & pt. unresponsive. Docusate Sodium (Colace) 100 mg PO BID [facility] Last Admin: 01/23/18 17:28 Dose: 100 mg Finasteride (Proscar) 5 mg PO DAILY [facility] Last Admin: 01/23/18 08:38 Dose: 5 mg Glipizide (Glucotrol Xl) 5 mg PO ACB [facility] Last Admin: 01/23/18 06:59 Dose: 5 mg Insulin Detemir (Levemir) 20 units SC [facility] Last Admin: 01/22/18 21:24 Dose: 20 units Lactulose (Enulose) 20 gm PO HS PRN PRN Reason: Constipation Last Admin: 01/22/18 21:28 Dose: 20 gm Metformin HCl (Glucophage) 500 mg PO BID [facility] Last Admin: 01/23/18 17:28 Dose: 500 mg Neomycin/Polymyxin/Bacitracin (Neosporin Oint) 1 applic TP Q8 [facility] Last Admin: 01/23/18 13:35 Dose: 1 applic Nystatin (Nystop Topical Powder) 1 applic TOP Q8 [facility] Last Admin: 01/23/18 13:35 Dose: 1 applic Tamsulosin HCl (Flomax) 0.4 mg PO [facility] Last Admin: 01/22/18 21:14 Dose: 0.4 mg - Labs Labs: 01/19/18 05:50 01/19/18 05:50 - Head Exam Head Exam: ATRAUMATIC, NORMAL INSPECTION, NORMOCEPHALIC - Eye Exam Eye Exam: EOMI, Normal appearance, PERRL - ENT Exam ENT Exam: Mucous Membranes Moist, Normal Exam - Neck Exam Neck Exam: Full ROM, Normal Inspection. absent: Lymphadenopathy - Respiratory Exam Respiratory Exam: Clear to Ausculation Bilateral, NORMAL BREATHING PATTERN - Cardiovascular Exam Cardiovascular Exam: REGULAR RHYTHM, +S1, +S2. absent: Murmur - GI/Abdominal Exam GI & Abdominal Exam: Soft, Normal Bowel Sounds. absent: Tenderness - Rectal Exam Rectal Exam: NORMAL INSPECTION - Exam External exam: NORMAL EXTERNAL EXAM - Extremities Exam Extremities Exam: absent: Calf Tenderness, Full ROM, Joint Swelling, Normal Capillary Refill, Normal Inspection, Pedal Edema, Tenderness - Back Exam Back Exam: NORMAL INSPECTION - Neurological Exam Neurological Exam: Alert Neuro motor strength exam: Left Upper Extremity: 3, Right Upper Extremity: 4, Left Lower Extremity: 3, Right Lower Extremity: 4 - Psychiatric Exam Psychiatric exam: Normal Affect, Normal Mood - Skin Skin Exam: Rash Assessment and Plan (1) CVA (cerebral vascular accident) Assessment & Plan: plan for physical, occupational, rec and speech therapy treatment for the rash , psychology eval for depression Status: Acute (2) DVT prophylaxis Status: Acute (3) Dehydration Status: Acute (4) Fall Status: Acute (5) Weakness of left arm Status: Acute (6) Weakness of left leg Status: Acute
[2018-01-23] MEDS: Insulin Detemir 100 Units/ml Inj SC SCH (21:41)
[2018-01-24] MEDS: Neomycin/Polymyxin/Bacitracin OINT 0.5OZ TP SCH ×3 (05:52→21:33)
[2018-01-24 06:50] LABS: BASO # 0.1 K/uL (0.0-0.2); BASO % 1.1 % (0.0-2.0); EOS # 0.3 K/uL (0.0-0.7); EOS % 4.1 % (0.0-4.0); HEMOGLOBIN 12.2 g/dL (12.0-18.0); LYMPH # 1.2 K/uL (1.0-4.3); MEAN CELL VOLUME 85.1 fl (80.0-94.0); MEAN CORPUSCULAR HEMOGLOBIN 28.2 pg (27.0-31.0); MEAN CORPUSCULAR HGB CONC 33.1 g/dL (33.0-37.0); MEAN PLATELET VOLUME 8.1 fl (7.2-11.7); MONO # 0.6 K/uL (0.0-0.8); MONO % 7.7 % (0.0-10.0); NEUT % 72.1 % (50.0-75.0); NRBC % 0.1 % (0.0-0.0); RBC 4.34 Mil/uL (4.40-5.90); RED CELL DISTRIBUTION WIDTH 14.1 % (11.5-14.5); WHITE BLOOD COUNT 8.3 K/uL (4.8-10.8)
[2018-01-24 06:53] LABS: ALB/GLOB RATIO 1.1 (1.0-2.1); ALBUMIN 3.4 g/dL (3.5-5.0); ALT/SGPT 34 U/L (21-72); AST/SGOT 21 U/L (17-59); BLOOD UREA NITROGEN 18 mg/dl (9-20); CALCIUM 9.2 mg/dL (8.4-10.2); GFR AFRICAN-AMERICAN > 60; GFR NON-AFRICAN AMERICAN > 60
[2018-01-24] MEDS: GlipiZIDE 5 mg SR Tab PO SCH (07:04)
[2018-01-24 07:11] LABS: INR 1.3 (0.9-1.2); PARTIAL THROMBOPLASTIN TIME 35.4 Seconds (25.6-37.1); PROTHROMBIN TIME 14.5 Seconds (9.8-13.1)
--- NOTE | 2018-01-24 12:31 | PSY.TMCNF ---
Nursing - Vital Signs Vital Signs (Last 8 hours): Vital Signs 01/24/18 01/24/18 08:05 09:16 Temperature 97.7 F Pulse Rate 54 L Respiratory 20 Rate Blood Pressure 121/58 L 121/58 L O2 Sat by Pulse 100 Oximetry Pain: 0 - Precautions: Precautions: Fall Prevention - Medications/Other Issues Comment: Pt at moderate nutritional risk. 1. Pt to consume 75-100% of meals. 2. Blood glucoses to be between 70-180 mg/dl. Follow-up due on 01/25/2018 - Consults Comment: Dr. Christianson-Redd - Toileting Toileting: Dependent - Bladder Management Bladder Pattern: Normal Voiding Method: Urinal - Bowel Management Bowel Pattern: Constipated Bowel Management: Dependent Frequency of Accidents: 0 - Transfers Transfers: Maximal Assistance - ADL's ADL's: Dependent - Patient/Family Teaching Comments: Care post CVA and safety precautions - Goals/Time Frame Comments: Pt was received at the nursing station and agreeable to go to the recreation room. Pt was oriented to benefits and purpose of participating in recreation therapy sessions. Pt reported that he enjoys watching television, visiting friend in [place], and cooks at home for himself. Pt presented with short term memory deficits although corrected himself at times. Pt participated in modified maria teresa card task and required min verbal cues at times for redirection to task and attention to task. Pt participated in two rounds of task and then returned to nursing station. - Provider Provider: Germaine GUYn RN CRRN Physical Therapy - Bed Mobility Bed Mobility: Minimal Assistance, Moderate Assistance - Transfers Wheelchair to Mat: Minimal Assistance Sit to Stand: Minimal Assistance - Ambulation Level of Assistance: Minimal Assistance Distance (ft.): 125 Assistive Devices: Wide base quad cane - Stair Negotiation Stairs: Level of Assistance: Contact Guard Number of Stairs: 3 Handrails: Right Stairs: Assistive Devices: Right Handrail - Standing Balance Static Stand: Contact Guard Assist Dynamic Stand: Minimal Assistance, Moderate Assistance - Pain Pain (assessed during therapy session): 0 - Insight/Carryover Insight/Carryover: Good - Patient/Family Education Comment: Pt education provided for increased safety awareness and proper techniques during functional mobility training. - Assessment/Plan Assessment: Pt agreeable to participate in 1:1 and group recreation therapy sessions. Pt presents with memory recall and benefits from word finding tasks to improve recalling facts on demand. Pt presents with L side weakness and is oriented to leisure tasks beneficial to improve strength. Pt requires min A throughout all leisure tasks. Pt's mood is stable-positive and will continue to benefit from participating in recreation therapy sessions throughout stay on unit. - Goals Timeframe: 2 weeks Goals: Sit < > supine with S. Sit < > stand transfers with Supervision. Pt will ambulate 250 ft with supervision and WBQC. Pt will asend/descend flight of stairs with R handrail and supervision - Provider Therapist: Mayra Fuller PT DPT License Number: [id number] Occupational Therapy - Arousal/Attention/Orientation Patient Orientation: Person, Place, Time, Appropriate to Age, Appropriate to Situation - ADL/IADL Self Feeding: Supervision, Verbal Cues, Set-up Help Grooming: Verbal Cues, Set-up Help, Minimal Assistance Bathing-Upper Extremity: Verbal Cues, Set-up Help, Moderate Assistance Bathing-Lower Extremity: Verbal Cues, Set-up Help, Moderate Assistance Dressing-Upper Extremity: Verbal Cues, Set-up Help, Moderate Assistance Dressing-Lower Extremity: Verbal Cues, Set-up Help, Moderate Assistance - Sitting Balance Static Sitting: Supervision Dynamic Sitting: Minimal Assistance Comment: seated at edge of bed - Transfers Wheelchair to Bed Transfers: Verbal Cues, Set-up Help, Minimal Assistance Toilet Transfers: Verbal Cues, Set-up Help, Minimal Assistance Comment: shower transfers: min assist and verbal cues - Wheelchair Management Level of Assistance: Minimal Assistance Distance (ft.): 150 - Upper Extremity Status Right Upper Extremity Comment: AROM is WFLS; strength 4+/5 Left Upper Extremity Comment: PROM is WNLS; AROM limited by impaired strength. Strength as follows: L shoulder flex/abduction 3-/5 ,elbow flex/extension 3-/5, forearm supination/pronation 3-/5 . wrist flex/estension 2-/5, difit flex/ extension 3-/5. thumb flex/extension 1/5 - Pain Pain (assessed during therapy session): 0 - Insight/Carryover Insight/Carryover: Good - Patient/Family Education Comment: Pt education provided for increased safety awareness and proper techniques during functional mobility training. - Assessment/Plan Assessment: Pt agreeable to participate in 1:1 and group recreation therapy sessions. Pt presents with memory recall and benefits from word finding tasks to improve recalling facts on demand. Pt presents with L side weakness and is oriented to leisure tasks beneficial to improve strength. Pt requires min A throughout all leisure tasks. Pt's mood is stable-positive and will continue to benefit from participating in recreation therapy sessions throughout stay on unit. - Goals Timeframe: 2 weeks Goals: Sit < > supine with S. Sit < > stand transfers with Supervision. Pt will ambulate 250 ft with supervision and WBQC. Pt will asend/descend flight of stairs with R handrail and supervision - Provider Therapist: YOLANDA Gil/Sandeep License Number: [id number] Speech Therapy - Consult Information Patient on Program: Yes Medical Diagnosis: CVA Treatment Diagnosis: mild cognitive deficits - Assessment Memory Impairment: Mild - Plan Assessment: Pt agreeable to participate in 1:1 and group recreation therapy sessions. Pt presents with memory recall and benefits from word finding tasks to improve recalling facts on demand. Pt presents with L side weakness and is oriented to leisure tasks beneficial to improve strength. Pt requires min A throughout all leisure tasks. Pt's mood is stable-positive and will continue to benefit from participating in recreation therapy sessions throughout stay on unit. - Provider Therapist: Susan Tinajero License Number: [id number] Recreational Therapy - Participation Participation: Participates in Individual and/or Group Sessions - Attendance Attendance: 3-5 times per week - Activities Leisure Activities: Cards and Games - Socialization Level of Socialization: Initiates/interacts freely with care givers and peer - Diversional Time Diversional Time: television - Assessment Assessment/Plan: Pt agreeable to participate in 1:1 and group recreation therapy sessions. Pt presents with memory recall and benefits from word finding tasks to improve recalling facts on demand. Pt presents with L side weakness and is oriented to leisure tasks beneficial to improve strength. Pt requires min A throughout all leisure tasks. Pt's mood is stable-positive and will continue to benefit from participating in recreation therapy sessions throughout stay on unit. Problems Currently Limiting Participation: decrease leisure awareness level, short-term memory deficits, decrease attention, L side UE and LE weakness Goals and Time Frame: Pt will be encouraged to participate in 1:1 and group recreation therapy sessions 3-5x week to improve attention to task, direction following, recalling facts on demand, and leisure awareness level. - Provider Therapist: Rosa Nugent, [employer] #[id number] Nutrition - Current Diet Current Diet/ Supplement/ Feedings: Moderate consistent CHO heart healthy diet - Appetite Percent Meal Consumed: 75-100% - Comments Comments: Care post CVA and safety precautions - Assessment/Goals/Time Frame Assessment/Goals/Time Frame: Pt at moderate nutritional risk. 1. Pt to consume 75-100% of meals. 2. Blood glucoses to be between 70-180 mg/dl. Follow-up due on 01/25/2018 - Provider Provider: Charity Fajardo RD Case Management - Discharge Plan Discharge Plan: Home with significant other/family Rehabilitation Plan - Treatment Plan Treatment Plan: Physical Therapy, Occupational Therapy, Speech, Dietary, Patient /Family Education - Recommendation Recommendation: Physical Therapy, Occupational Therapy, Speech, Dietary, Patient /Family Education - Discharge Plan Discharge to: Home (february 08)
--- NOTE | 2018-01-24 14:46 | CP.PCM.PN ---
Subjective - Date & Time of Evaluation Date of Evaluation: 01/24/18 Time of Evaluation: 11:00 - Subjective Subjective: no acute complaints at present Objective - Vital Signs/Intake and Output Vital Signs (last 24 hours): Temp Pulse Resp BP Pulse Ox 97.7 F 54 L 20 121/58 L 100 01/24/18 08:05 01/24/18 08:05 01/24/18 08:05 01/24/18 09:16 01/24/18 08:05 - Medications Medications: Current Medications Amlodipine Besylate (Norvasc) 10 mg PO DAILY [facility] Last Admin: 01/24/18 09:16 Dose: 10 mg Apixaban (Eliquis) 5 mg PO BID [facility] PRN Reason: Protocol Last Admin: 01/24/18 09:17 Dose: 5 mg Aspirin (Ecotrin) 81 mg PO DAILY [facility] Last Admin: 01/24/18 09:17 Dose: 81 mg Atorvastatin Calcium (Lipitor) 20 mg PO HS [facility] Last Admin: 01/23/18 21:06 Dose: 20 mg Dextrose (Dextrose 50% Inj) 50 ml IVP PRN PRN PRN Reason: If BS < 50 & pt. unresponsive. Docusate Sodium (Colace) 100 mg PO BID [facility] Last Admin: 01/24/18 09:17 Dose: 100 mg Finasteride (Proscar) 5 mg PO DAILY [facility] Last Admin: 01/24/18 09:16 Dose: 5 mg Glipizide (Glucotrol Xl) 5 mg PO ACB [facility] Last Admin: 01/24/18 07:04 Dose: 5 mg Insulin Detemir (Levemir) 20 units SC HS [facility] Last Admin: 01/23/18 21:41 Dose: 20 units Lactulose (Enulose) 20 gm PO HS PRN PRN Reason: Constipation Last Admin: 01/23/18 20:11 Dose: 20 gm Metformin HCl (Glucophage) 500 mg PO BID [facility] Last Admin: 01/24/18 09:16 Dose: 500 mg Neomycin/Polymyxin/Bacitracin (Neosporin Oint) 1 applic TP Q8 [facility] Last Admin: 01/24/18 13:17 Dose: 1 applic Nystatin (Nystop Topical Powder) 1 applic TOP Q8 [facility] Last Admin: 01/24/18 13:18 Dose: 1 applic Tamsulosin HCl (Flomax) 0.4 mg PO [facility] Last Admin: 01/23/18 21:07 Dose: 0.4 mg - Labs Labs: 01/24/18 05:45 01/24/18 05:45 PT 14.5 Seconds (9.8-13.1) H 01/24/18 05:45 INR 1.3 (0.9-1.2) H 01/24/18 05:45 APTT 35.4 Seconds (25.6-37.1) 01/24/18 05:45 - Head Exam Head Exam: ATRAUMATIC, NORMAL INSPECTION, NORMOCEPHALIC - Eye Exam Eye Exam: EOMI, Normal appearance, PERRL Pupil Exam: NORMAL ACCOMODATION - ENT Exam ENT Exam: Mucous Membranes Moist, Normal Exam - Neck Exam Neck Exam: Normal Inspection - Respiratory Exam Respiratory Exam: NORMAL BREATHING PATTERN - Cardiovascular Exam Cardiovascular Exam: REGULAR RHYTHM - GI/Abdominal Exam GI & Abdominal Exam: Soft, Normal Bowel Sounds - Rectal Exam Rectal Exam: NORMAL INSPECTION - Exam External exam: NORMAL EXTERNAL EXAM - Extremities Exam Extremities Exam: Full ROM, Normal Capillary Refill, Normal Inspection - Back Exam Back Exam: NORMAL INSPECTION - Neurological Exam Neurological Exam: Alert, Awake, CN II-XII Intact Neuro motor strength exam: Left Upper Extremity: 2/1, Right Upper Extremity: 3, Left Lower Extremity: 2/1, Right Lower Extremity: 3 - Psychiatric Exam Psychiatric exam: Normal Affect, Normal Mood - Skin Skin Exam: Dry, Intact, Normal Color Assessment and Plan (1) CVA (cerebral vascular accident) Assessment & Plan: plan for pt, ot rec Dc for 02/08 stauts post team conference Status: Acute (2) DVT prophylaxis Status: Acute (3) Dehydration Status: Acute (4) Fall Status: Acute (5) Weakness of left arm Status: Acute (6) Weakness of left leg Status: Acute
--- NOTE | 2018-01-24 14:50 | CP.PCM.PN ---
Subjective - Date & Time of Evaluation Date of Evaluation: 01/22/18 Time of Evaluation: 11:00 - Subjective Subjective: no neck or back pain, rash is healing Objective - Vital Signs/Intake and Output Vital Signs (last 24 hours): Temp Pulse Resp BP Pulse Ox 97.7 F 54 L 20 121/58 L 100 01/24/18 08:05 01/24/18 08:05 01/24/18 08:05 01/24/18 09:16 01/24/18 08:05 - Medications Medications: Current Medications Amlodipine Besylate (Norvasc) 10 mg PO DAILY [facility] Last Admin: 01/24/18 09:16 Dose: 10 mg Apixaban (Eliquis) 5 mg PO BID [facility] PRN Reason: Protocol Last Admin: 01/24/18 09:17 Dose: 5 mg Aspirin (Ecotrin) 81 mg PO DAILY [facility] Last Admin: 01/24/18 09:17 Dose: 81 mg Atorvastatin Calcium (Lipitor) 20 mg PO HS [facility] Last Admin: 01/23/18 21:06 Dose: 20 mg Dextrose (Dextrose 50% Inj) 50 ml IVP PRN PRN PRN Reason: If BS < 50 & pt. unresponsive. Docusate Sodium (Colace) 100 mg PO BID [facility] Last Admin: 01/24/18 09:17 Dose: 100 mg Finasteride (Proscar) 5 mg PO DAILY [facility] Last Admin: 01/24/18 09:16 Dose: 5 mg Glipizide (Glucotrol Xl) 5 mg PO ACB [facility] Last Admin: 01/24/18 07:04 Dose: 5 mg Insulin Detemir (Levemir) 20 units SC HS [facility] Last Admin: 01/23/18 21:41 Dose: 20 units Lactulose (Enulose) 20 gm PO HS PRN PRN Reason: Constipation Last Admin: 01/23/18 20:11 Dose: 20 gm Metformin HCl (Glucophage) 500 mg PO BID [facility] Last Admin: 01/24/18 09:16 Dose: 500 mg Neomycin/Polymyxin/Bacitracin (Neosporin Oint) 1 applic TP Q8 [facility] Last Admin: 01/24/18 13:17 Dose: 1 applic Nystatin (Nystop Topical Powder) 1 applic TOP Q8 [facility] Last Admin: 01/24/18 13:18 Dose: 1 applic Tamsulosin HCl (Flomax) 0.4 mg PO HS [facility] Last Admin: 01/23/18 21:07 Dose: 0.4 mg - Labs Labs: 01/24/18 05:45 01/24/18 05:45 PT 14.5 Seconds (9.8-13.1) H 01/24/18 05:45 INR 1.3 (0.9-1.2) H 01/24/18 05:45 APTT 35.4 Seconds (25.6-37.1) 01/24/18 05:45 - Head Exam Head Exam: ATRAUMATIC, NORMAL INSPECTION, NORMOCEPHALIC - Eye Exam Eye Exam: EOMI, Normal appearance, PERRL Pupil Exam: NORMAL ACCOMODATION - ENT Exam ENT Exam: Mucous Membranes Moist, Normal Exam - Neck Exam Neck Exam: Normal Inspection - Respiratory Exam Respiratory Exam: NORMAL BREATHING PATTERN - Cardiovascular Exam Cardiovascular Exam: Clicks - GI/Abdominal Exam GI & Abdominal Exam: Soft, Normal Bowel Sounds - Rectal Exam Rectal Exam: NORMAL INSPECTION - Exam External exam: NORMAL EXTERNAL EXAM - Extremities Exam Extremities Exam: Full ROM, Normal Capillary Refill, Normal Inspection - Back Exam Back Exam: NORMAL INSPECTION - Neurological Exam Neurological Exam: Alert, Awake Neuro motor strength exam: Left Upper Extremity: 2/1, Right Upper Extremity: 3, Left Lower Extremity: 2/1, Right Lower Extremity: 3 - Psychiatric Exam Psychiatric exam: Normal Affect, Normal Mood - Skin Skin Exam: Dry, Intact Assessment and Plan (1) CVA (cerebral vascular accident) Assessment & Plan: physical, occupational, rec therapy and speech therapy monitor rash Status: Acute (2) DVT prophylaxis Status: Acute (3) Dehydration Status: Acute (4) Fall Status: Acute (5) Weakness of left arm Status: Acute (6) Weakness of left leg Status: Acute
[2018-01-24] MEDS: Insulin Detemir 100 Units/ml Inj SC SCH (21:33)
[2018-01-25] MEDS: Neomycin/Polymyxin/Bacitracin OINT 0.5OZ TP SCH ×3 (06:01→21:00)
[2018-01-25] MEDS: GlipiZIDE 5 mg SR Tab PO SCH (07:00)
--- NOTE | 2018-01-25 08:20 | CP.PCM.PN ---
Subjective - Date & Time of Evaluation Date of Evaluation: 01/25/18 Time of Evaluation: 08:19 - Subjective Subjective: pt doing well, lue and lle moving better. no f/c, n/v/d. no complaints. all client relationship consultant notes appriciated Objective - Vital Signs/Intake and Output Vital Signs (last 24 hours): Temp Pulse Resp BP Pulse Ox 97.7 F 59 L 20 131/64 100 01/24/18 20:33 01/24/18 20:33 01/24/18 20:33 01/24/18 20:33 01/24/18 20:33 - Medications Medications: Current Medications Amlodipine Besylate (Norvasc) 10 mg PO DAILY [facility] Last Admin: 01/24/18 09:16 Dose: 10 mg Apixaban (Eliquis) 5 mg PO BID [facility] PRN Reason: Protocol Last Admin: 01/24/18 17:20 Dose: 5 mg Aspirin (Ecotrin) 81 mg PO DAILY [facility] Last Admin: 01/24/18 09:17 Dose: 81 mg Atorvastatin Calcium (Lipitor) 20 mg PO HS [facility] Last Admin: 01/24/18 21:33 Dose: 20 mg Dextrose (Dextrose 50% Inj) 50 ml IVP PRN PRN PRN Reason: If BS < 50 & pt. unresponsive. Docusate Sodium (Colace) 100 mg PO BID [facility] Last Admin: 01/24/18 17:20 Dose: 100 mg Finasteride (Proscar) 5 mg PO DAILY [facility] Last Admin: 01/24/18 09:16 Dose: 5 mg Glipizide (Glucotrol Xl) 5 mg PO ACB [facility] Last Admin: 01/25/18 07:00 Dose: 5 mg Insulin Detemir (Levemir) 20 units SC HS [facility] Last Admin: 01/24/18 21:33 Dose: 20 units Lactulose (Enulose) 20 gm PO HS PRN PRN Reason: Constipation Last Admin: 01/23/18 20:11 Dose: 20 gm Metformin HCl (Glucophage) 500 mg PO BID [facility] Last Admin: 01/24/18 17:20 Dose: 500 mg Neomycin/Polymyxin/Bacitracin (Neosporin Oint) 1 applic TP Q8 [facility] Last Admin: 01/25/18 06:01 Dose: 1 applic Nystatin (Nystop Topical Powder) 1 applic TOP Q8 [facility] Last Admin: 01/25/18 06:01 Dose: 1 applic Tamsulosin HCl (Flomax) 0.4 mg PO HS [facility] Last Admin: 01/24/18 21:32 Dose: 0.4 mg - Labs Labs: 01/24/18 05:45 01/24/18 05:45 PT 14.5 Seconds (9.8-13.1) H 01/24/18 05:45 INR 1.3 (0.9-1.2) H 01/24/18 05:45 APTT 35.4 Seconds (25.6-37.1) 01/24/18 05:45 - Constitutional Appears: Well, Non-toxic, No Acute Distress - Head Exam Head Exam: ATRAUMATIC, NORMAL INSPECTION, NORMOCEPHALIC - Eye Exam Eye Exam: EOMI, Normal appearance, PERRL Pupil Exam: NORMAL ACCOMODATION, PERRL - ENT Exam ENT Exam: Mucous Membranes Moist, Normal Exam - Neck Exam Neck Exam: Full ROM, Normal Inspection. absent: Lymphadenopathy - Respiratory Exam Respiratory Exam: Clear to Ausculation Bilateral, NORMAL BREATHING PATTERN - Cardiovascular Exam Cardiovascular Exam: REGULAR RHYTHM, RRR, +S1, +S2. absent: Murmur - GI/Abdominal Exam GI & Abdominal Exam: Soft, Normal Bowel Sounds. absent: Tenderness - Extremities Exam Extremities Exam: Full ROM, Normal Capillary Refill, Normal Inspection. absent : Joint Swelling, Pedal Edema - Back Exam Back Exam: NORMAL INSPECTION - Neurological Exam Neurological Exam: Alert, Awake, CN II-XII Intact, Normal Gait, Oriented x3 - Psychiatric Exam Psychiatric exam: Normal Affect, Normal Mood - Skin Skin Exam: Dry, Intact, Normal Color, Warm Assessment and Plan (1) CVA (cerebral vascular accident) Status: Acute (2) DVT prophylaxis Status: Acute - Assessment and Plan (Free Text) Assessment: (1) CVA (cerebral vascular accident) Assessment and Plan: eliquis cardio/neuro pt/ot physiatry Status: Acute (2) DVT prophylaxis Assessment and Plan: scd nad ae hose day Status: Acute [id number] levemir, diet control, riss, fsbg dietary teaching
[2018-01-25] MEDS: Insulin Detemir 100 Units/ml Inj SC SCH (21:47)
[2018-01-26] MEDS: Neomycin/Polymyxin/Bacitracin OINT 0.5OZ TP SCH ×3 (06:01→21:54)
[2018-01-26] MEDS: GlipiZIDE 5 mg SR Tab PO SCH (07:33)
--- NOTE | 2018-01-26 08:30 | CP.PCM.CON ---
History of Present Illness - History of Present Illness History of Present Illness: Pt is an 82 year old male admitted to [facility] and referred to the television script writer for evaluation. med history positive for recent CVA. Pt also reported history of HTN and DM. He denied other medical issues. See medical record for complete medical history and medication list. Social History: pt lives alone. He was 15+ years ago. Pt has no children and no siblings. He spoke of "A lady friend" in [place]- his primary social support. Pt is largely a loner. 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 MSE: pt alert, oriented x3, relevant/coherent, no psychosis, mood irritable and affect constricted though patient denied current mood issues, no si no hi ideation. Dx: Adjustment Dx Plan: Continud Sup therapy Past Patient History - Past Medical History & Family History Past Medical History?: Yes - Past Social History Smoking Status: Never Smoked - CARDIAC Hx Hypercholesterolemia: Yes Hx Hypertension: Yes - PULMONARY Hx Respiratory Disorders: No - NEUROLOGICAL Hx Neurological Disorder: Yes HX Cerebrovascular Accident: Yes - HEENT Hx HEENT Problems: Yes Hx Cataracts: Yes Hx Glaucoma: Yes Other/Comment: wears eyeglasses for reading. - RENAL Other/Comment: acute kidney injury, hypernatremia - ENDOCRINE/METABOLIC Hx Diabetes Mellitus Type 2: Yes - HEMATOLOGICAL/ONCOLOGICAL Hx Blood Disorders: No Hx AIDS: No Hx Human Immunodeficiency Virus (HIV): No - INTEGUMENTARY Hx Dermatological Problems: No - MUSCULOSKELETAL/RHEUMATOLOGICAL Hx Falls: Yes (2x before admission) - GASTROINTESTINAL Hx Gastrointestinal Disorders: Yes Hx Constipation: Yes - GENITOURINARY/GYNECOLOGICAL Hx Genitourinary Disorders: Yes Hx Prostate Problems: Yes - PSYCHIATRIC Hx Substance Use: No - SURGICAL HISTORY Hx Surgeries: No - ANESTHESIA Hx Anesthesia: No Hx Anesthesia Reactions: No Hx Malignant Hyperthermia: No Has any member of the family had a problem w/ anesthesia?: No Meds Allergies/Adverse Reactions: Allergies Allergy/AdvReac Type Severity Reaction Status Date / Time No Known Allergies Allergy Verified 01/16/18 18:38 - Medications Medications: Current Medications Amlodipine Besylate (Norvasc) 10 mg PO DAILY [facility] Last Admin: 01/25/18 08:59 Dose: 10 mg Apixaban (Eliquis) 5 mg PO BID [facility] PRN Reason: Protocol Last Admin: 01/25/18 17:23 Dose: 5 mg Aspirin (Ecotrin) 81 mg PO DAILY [facility] Last Admin: 01/25/18 08:58 Dose: 81 mg Atorvastatin Calcium (Lipitor) 20 mg PO HS [facility] Last Admin: 01/25/18 21:00 Dose: 20 mg Dextrose (Dextrose 50% Inj) 50 ml IVP PRN PRN PRN Reason: If BS < 50 & pt. unresponsive. Docusate Sodium (Colace) 100 mg PO BID [facility] Last Admin: 01/25/18 17:22 Dose: 100 mg Finasteride (Proscar) 5 mg PO DAILY [facility] Last Admin: 01/25/18 08:59 Dose: 5 mg Glipizide (Glucotrol Xl) 5 mg PO ACB [facility] Last Admin: 01/26/18 07:33 Dose: 5 mg Insulin Detemir (Levemir) 20 units SC [facility] Last Admin: 01/25/18 21:47 Dose: 20 units Lactulose (Enulose) 20 gm PO HS PRN PRN Reason: Constipation Last Admin: 01/25/18 21:00 Dose: 20 gm Metformin HCl (Glucophage) 500 mg PO BID [facility] Last Admin: 01/25/18 17:22 Dose: 500 mg Neomycin/Polymyxin/Bacitracin (Neosporin Oint) 1 applic TP Q8 [facility] Last Admin: 01/26/18 06:01 Dose: 1 applic Nystatin (Nystop Topical Powder) 1 applic TOP Q8 [facility] Last Admin: 01/26/18 06:01 Dose: 1 applic Tamsulosin HCl (Flomax) 0.4 mg PO [facility] Last Admin: 01/25/18 21:00 Dose: 0.4 mg Results - Vital Signs Recent Vital Signs: Last Vital Signs Temp 98.4 F 01/25/18 20:34 Pulse 62 01/25/18 20:34 Resp 20 01/25/18 20:34 BP 126/69 01/25/18 20:34 Pulse Ox 98 01/25/18 20:34 - Labs Result Diagrams: 01/24/18 05:45 01/24/18 05:45 Labs: Laboratory Results - last 24 hr 03/01/18 03/01/18 03/01/18 05:08 11:02 15:46 POC Glucose (mg/dL) 110 183 H 172 H 01/25/18 01/26/18 21:01 06:03 POC Glucose (mg/dL) 127 H 76
--- NOTE | 2018-01-26 10:44 | CP.PCM.PN ---
Subjective - Date & Time of Evaluation Date of Evaluation: 01/26/18 Time of Evaluation: 08:30 - Subjective Subjective: no neck or back pain smiling today Objective - Vital Signs/Intake and Output Vital Signs (last 24 hours): Temp Pulse Resp BP Pulse Ox 97.6 F 63 20 123/68 97 01/26/18 09:32 01/26/18 09:32 01/26/18 09:32 01/26/18 09:32 01/26/18 09:32 - Medications Medications: Current Medications Amlodipine Besylate (Norvasc) 10 mg PO DAILY [facility] Last Admin: 01/26/18 09:07 Dose: 10 mg Apixaban (Eliquis) 5 mg PO BID [facility] PRN Reason: Protocol Last Admin: 01/26/18 09:07 Dose: 5 mg Aspirin (Ecotrin) 81 mg PO DAILY [facility] Last Admin: 01/26/18 09:07 Dose: 81 mg Atorvastatin Calcium (Lipitor) 20 mg PO HS [facility] Last Admin: 01/25/18 21:00 Dose: 20 mg Dextrose (Dextrose 50% Inj) 50 ml IVP PRN PRN PRN Reason: If BS < 50 & pt. unresponsive. Docusate Sodium (Colace) 100 mg PO BID [facility] Last Admin: 01/26/18 09:06 Dose: 100 mg Finasteride (Proscar) 5 mg PO DAILY [facility] Last Admin: 01/26/18 09:08 Dose: 5 mg Glipizide (Glucotrol Xl) 5 mg PO ACB [facility] Last Admin: 01/26/18 07:33 Dose: 5 mg Insulin Detemir (Levemir) 20 units SC [facility] Last Admin: 01/25/18 21:47 Dose: 20 units Lactulose (Enulose) 20 gm PO HS PRN PRN Reason: Constipation Last Admin: 01/25/18 21:00 Dose: 20 gm Metformin HCl (Glucophage) 500 mg PO BID [facility] Last Admin: 01/26/18 09:07 Dose: 500 mg Neomycin/Polymyxin/Bacitracin (Neosporin Oint) 1 applic TP Q8 [facility] Last Admin: 01/26/18 06:01 Dose: 1 applic Nystatin (Nystop Topical Powder) 1 applic TOP Q8 [facility] Last Admin: 01/26/18 06:01 Dose: 1 applic Tamsulosin HCl (Flomax) 0.4 mg PO [facility] Last Admin: 01/25/18 21:00 Dose: 0.4 mg - Labs Labs: 01/24/18 05:45 01/24/18 05:45 PT 14.5 Seconds (9.8-13.1) H 01/24/18 05:45 INR 1.3 (0.9-1.2) H 01/24/18 05:45 APTT 35.4 Seconds (25.6-37.1) 01/24/18 05:45 - Head Exam Head Exam: ATRAUMATIC, NORMAL INSPECTION, NORMOCEPHALIC - Eye Exam Eye Exam: EOMI, Normal appearance, PERRL Pupil Exam: NORMAL ACCOMODATION, PERRL - ENT Exam ENT Exam: Mucous Membranes Moist, Normal Exam - Neck Exam Neck Exam: Full ROM, Normal Inspection. absent: Lymphadenopathy - Respiratory Exam Respiratory Exam: Clear to Ausculation Bilateral, NORMAL BREATHING PATTERN - Cardiovascular Exam Cardiovascular Exam: REGULAR RHYTHM, +S1, +S2. absent: Murmur - GI/Abdominal Exam GI & Abdominal Exam: Soft, Normal Bowel Sounds. absent: Tenderness - Rectal Exam Rectal Exam: NORMAL INSPECTION - Exam External exam: absent: Ecchymosis, Erythema, Lacerations, Lesions, NORMAL EXTERNAL EXAM, Swelling - Extremities Exam Extremities Exam: Full ROM, Normal Capillary Refill, Normal Inspection. absent : Joint Swelling, Pedal Edema - Back Exam Back Exam: NORMAL INSPECTION - Neurological Exam Neurological Exam: Alert, Awake Neuro motor strength exam: Left Upper Extremity: 2/1, Right Upper Extremity: 3, Left Lower Extremity: 2/1, Right Lower Extremity: 3 - Psychiatric Exam Psychiatric exam: Normal Affect, Normal Mood - Skin Skin Exam: Dry, Intact, Normal Color, Warm Assessment and Plan (1) CVA (cerebral vascular accident) Assessment & Plan: coniue with physical, occupational therapy fes, electric stim for the arm and leg Status: Acute (2) DVT prophylaxis Status: Acute (3) Dehydration Status: Acute (4) Fall Status: Acute (5) Weakness of left arm Status: Acute (6) Weakness of left leg Status: Acute
--- NOTE | 2018-01-26 14:33 | CP.PCM.PN ---
Subjective - Date & Time of Evaluation Date of Evaluation: 01/26/18 Time of Evaluation: 14:33 - Subjective Subjective: pt doing wellm no compaints. no f/c, n/v/d neuromuscular remains as assessed Objective - Vital Signs/Intake and Output Vital Signs (last 24 hours): Temp Pulse Resp BP Pulse Ox 97.6 F 63 20 123/68 97 01/26/18 09:32 01/26/18 09:32 01/26/18 09:32 01/26/18 09:32 01/26/18 09:32 - Medications Medications: Current Medications Amlodipine Besylate (Norvasc) 10 mg PO DAILY [facility] Last Admin: 01/26/18 09:07 Dose: 10 mg Apixaban (Eliquis) 5 mg PO BID [facility] PRN Reason: Protocol Last Admin: 01/26/18 09:07 Dose: 5 mg Aspirin (Ecotrin) 81 mg PO DAILY [facility] Last Admin: 01/26/18 09:07 Dose: 81 mg Atorvastatin Calcium (Lipitor) 20 mg PO HS [facility] Last Admin: 01/25/18 21:00 Dose: 20 mg Dextrose (Dextrose 50% Inj) 50 ml IVP PRN PRN PRN Reason: If BS < 50 & pt. unresponsive. Docusate Sodium (Colace) 100 mg PO BID [facility] Last Admin: 01/26/18 09:06 Dose: 100 mg Finasteride (Proscar) 5 mg PO DAILY [facility] Last Admin: 01/26/18 09:08 Dose: 5 mg Glipizide (Glucotrol Xl) 5 mg PO ACB [facility] Last Admin: 01/26/18 07:33 Dose: 5 mg Insulin Detemir (Levemir) 20 units SC HS [facility] Last Admin: 01/25/18 21:47 Dose: 20 units Lactulose (Enulose) 20 gm PO HS PRN PRN Reason: Constipation Last Admin: 01/25/18 21:00 Dose: 20 gm Metformin HCl (Glucophage) 500 mg PO BID [facility] Last Admin: 01/26/18 09:07 Dose: 500 mg Neomycin/Polymyxin/Bacitracin (Neosporin Oint) 1 applic TP Q8 [facility] Last Admin: 01/26/18 13:06 Dose: 1 applic Nystatin (Nystop Topical Powder) 1 applic TOP Q8 [facility] Last Admin: 01/26/18 13:06 Dose: 1 applic Tamsulosin HCl (Flomax) 0.4 mg PO HS [facility] Last Admin: 01/25/18 21:00 Dose: 0.4 mg - Labs Labs: 01/24/18 05:45 01/24/18 05:45 PT 14.5 Seconds (9.8-13.1) H 01/24/18 05:45 INR 1.3 (0.9-1.2) H 01/24/18 05:45 APTT 35.4 Seconds (25.6-37.1) 01/24/18 05:45 - Constitutional Appears: Well, Non-toxic, No Acute Distress - Head Exam Head Exam: ATRAUMATIC, NORMAL INSPECTION, NORMOCEPHALIC - Eye Exam Eye Exam: EOMI, Normal appearance, PERRL Pupil Exam: NORMAL ACCOMODATION, PERRL - ENT Exam ENT Exam: Mucous Membranes Moist, Normal Exam - Neck Exam Neck Exam: Full ROM, Normal Inspection. absent: Lymphadenopathy - Respiratory Exam Respiratory Exam: Clear to Ausculation Bilateral, NORMAL BREATHING PATTERN - Cardiovascular Exam Cardiovascular Exam: REGULAR RHYTHM, +S1, +S2. absent: Murmur - GI/Abdominal Exam GI & Abdominal Exam: Soft, Normal Bowel Sounds. absent: Tenderness - Extremities Exam Extremities Exam: Full ROM, Normal Capillary Refill, Normal Inspection. absent : Joint Swelling, Pedal Edema - Back Exam Back Exam: NORMAL INSPECTION - Neurological Exam Neurological Exam: Alert, Awake, CN II-XII Intact, Normal Gait, Oriented x3 Neuro motor strength exam: Left Upper Extremity: 4, Right Upper Extremity: 5, Left Lower Extremity: 4, Right Lower Extremity: 5 - Psychiatric Exam Psychiatric exam: Normal Affect, Normal Mood - Skin Skin Exam: Dry, Intact, Normal Color, Warm Assessment and Plan (1) CVA (cerebral vascular accident) Status: Acute (2) DVT prophylaxis Status: Acute - Assessment and Plan (Free Text) Plan: (1) CVA (cerebral vascular accident) Assessment and Plan: eliquis cardio/neuro pt/ot physiatry Status: Acute (2) DVT prophylaxis Assessment and Plan: scd nad ae hose ady Status: Acute [id number] levemir, diet control, riss, fsbg dietary teaching for izabela
[2018-01-26] MEDS: Insulin Detemir 100 Units/ml Inj SC SCH (21:53)
[2018-01-27] MEDS: Neomycin/Polymyxin/Bacitracin OINT 0.5OZ TP SCH ×3 (06:05→21:50)
[2018-01-27] MEDS: GlipiZIDE 5 mg SR Tab PO SCH (06:35)
[2018-01-27] MEDS: Insulin Detemir 100 Units/ml Inj SC SCH (21:44)
[2018-01-28] MEDS: Neomycin/Polymyxin/Bacitracin OINT 0.5OZ TP SCH ×3 (06:24→21:51)
[2018-01-28] MEDS: GlipiZIDE 5 mg SR Tab PO SCH (09:13)
[2018-01-28] MEDS: Insulin Detemir 100 Units/ml Inj SC SCH (21:51)
[2018-01-29] MEDS: GlipiZIDE 5 mg SR Tab PO SCH (07:03)
[2018-01-29 07:06] LABS: ALB/GLOB RATIO 1.2 (1.0-2.1); ALBUMIN 3.3 g/dL (3.5-5.0); ALT/SGPT 31 U/L (21-72); AST/SGOT 17 U/L (17-59); BLOOD UREA NITROGEN 13 mg/dl (9-20); CALCIUM 9.1 mg/dL (8.4-10.2); GFR AFRICAN-AMERICAN > 60; GFR NON-AFRICAN AMERICAN > 60
[2018-01-29] MEDS: Neomycin/Polymyxin/Bacitracin OINT 0.5OZ TP SCH ×3 (07:06→21:13)
[2018-01-29 07:09] LABS: BASO # 0.1 K/uL (0.0-0.2); BASO % 1.1 % (0.0-2.0); EOS # 0.3 K/uL (0.0-0.7); EOS % 3.7 % (0.0-4.0); HEMOGLOBIN 12.3 g/dL (12.0-18.0); LYMPH # 1.3 K/uL (1.0-4.3); MEAN CELL VOLUME 85.2 fl (80.0-94.0); MEAN CORPUSCULAR HEMOGLOBIN 28.6 pg (27.0-31.0); MEAN CORPUSCULAR HGB CONC 33.5 g/dL (33.0-37.0); MEAN PLATELET VOLUME 8.3 fl (7.2-11.7); MONO # 0.5 K/uL (0.0-0.8); MONO % 7.4 % (0.0-10.0); NEUT # 4.9 K/uL (1.8-7.0); NEUT % 69.8 % (50.0-75.0); NRBC % 0.1 % (0.0-0.0); RBC 4.29 Mil/uL (4.40-5.90); RED CELL DISTRIBUTION WIDTH 14.2 % (11.5-14.5)
--- NOTE | 2018-01-29 08:35 | CP.PCM.PN ---
Subjective - Date & Time of Evaluation Date of Evaluation: 01/29/18 Time of Evaluation: 08:34 - Subjective Subjective: pt doing well. rom of left side slowly improving. no f/c, n/v/d. bw noted. Objective - Vital Signs/Intake and Output Vital Signs (last 24 hours): Temp Pulse Resp BP Pulse Ox 98.6 F 62 20 129/70 97 01/28/18 19:59 01/28/18 19:59 01/28/18 19:59 01/28/18 19:59 01/28/18 19:59 - Medications Medications: Current Medications Amlodipine Besylate (Norvasc) 10 mg PO DAILY [facility] Last Admin: 01/28/18 09:13 Dose: 10 mg Apixaban (Eliquis) 5 mg PO BID [facility] PRN Reason: Protocol Last Admin: 01/28/18 16:56 Dose: 5 mg Aspirin (Ecotrin) 81 mg PO DAILY [facility] Last Admin: 01/28/18 09:13 Dose: 81 mg Atorvastatin Calcium (Lipitor) 20 mg PO HS [facility] Last Admin: 01/28/18 21:50 Dose: 20 mg Dextrose (Dextrose 50% Inj) 50 ml IVP PRN PRN PRN Reason: If BS < 50 & pt. unresponsive. Docusate Sodium (Colace) 100 mg PO BID [facility] Last Admin: 01/28/18 16:56 Dose: 100 mg Finasteride (Proscar) 5 mg PO DAILY [facility] Last Admin: 01/28/18 09:13 Dose: 5 mg Glipizide (Glucotrol Xl) 5 mg PO ACB [facility] Last Admin: 01/29/18 07:03 Dose: 5 mg Insulin Detemir (Levemir) 20 units SC HS [facility] Last Admin: 01/28/18 21:51 Dose: 20 units Lactulose (Enulose) 20 gm PO HS PRN PRN Reason: Constipation Last Admin: 01/25/18 21:00 Dose: 20 gm Metformin HCl (Glucophage) 500 mg PO BID [facility] Last Admin: 01/28/18 16:57 Dose: 500 mg Neomycin/Polymyxin/Bacitracin (Neosporin Oint) 1 applic TP Q8 [facility] Last Admin: 01/29/18 07:06 Dose: 1 applic Nystatin (Nystop Topical Powder) 1 applic TOP Q8 [facility] Last Admin: 01/29/18 07:06 Dose: 1 applic Tamsulosin HCl (Flomax) 0.4 mg PO HS [facility] Last Admin: 01/28/18 21:50 Dose: 0.4 mg - Labs Labs: 01/29/18 05:40 01/29/18 05:40 PT 14.5 Seconds (9.8-13.1) H 01/24/18 05:45 INR 1.3 (0.9-1.2) H 01/24/18 05:45 APTT 35.4 Seconds (25.6-37.1) 01/24/18 05:45 - Constitutional Appears: Well, Non-toxic, No Acute Distress, Chronically Ill - Head Exam Head Exam: ATRAUMATIC, NORMAL INSPECTION, NORMOCEPHALIC - Eye Exam Eye Exam: EOMI, Normal appearance, PERRL Pupil Exam: NORMAL ACCOMODATION, PERRL - ENT Exam ENT Exam: Mucous Membranes Moist, Normal Exam - Neck Exam Neck Exam: Full ROM, Normal Inspection. absent: Lymphadenopathy - Respiratory Exam Respiratory Exam: Clear to Ausculation Bilateral, NORMAL BREATHING PATTERN - Cardiovascular Exam Cardiovascular Exam: REGULAR RHYTHM, RRR, +S1, +S2. absent: Murmur - GI/Abdominal Exam GI & Abdominal Exam: Soft, Normal Bowel Sounds. absent: Tenderness - Extremities Exam Extremities Exam: Full ROM, Normal Capillary Refill, Normal Inspection. absent : Joint Swelling, Pedal Edema - Back Exam Back Exam: NORMAL INSPECTION - Neurological Exam Neurological Exam: Alert, Awake, CN II-XII Intact, Normal Gait, Oriented x3 - Psychiatric Exam Psychiatric exam: Normal Affect, Normal Mood - Skin Skin Exam: Dry, Intact, Normal Color, Warm Assessment and Plan (1) CVA (cerebral vascular accident) Status: Acute (2) DVT prophylaxis Status: Acute - Assessment and Plan (Free Text) Assessment: (1) CVA (cerebral vascular accident) Assessment and Plan: eliquis cardio/neuro pt/ot physiatry Status: Acute (2) DVT prophylaxis Assessment and Plan: scd nad ae hose ady Status: Acute [id number] levemir, diet control, riss, fsbg dietary teaching for izabela
[2018-01-29] MEDS: Insulin Detemir 100 Units/ml Inj SC SCH (21:12)
[2018-01-30] MEDS: Neomycin/Polymyxin/Bacitracin OINT 0.5OZ TP SCH ×3 (05:21→21:33)
[2018-01-30] MEDS: GlipiZIDE 5 mg SR Tab PO SCH (06:45)
--- NOTE | 2018-01-30 13:30 | CP.PCM.PN ---
Subjective - Date & Time of Evaluation Date of Evaluation: 01/28/18 Time of Evaluation: 13:00 - Subjective Subjective: no acute complaints at present Objective - Vital Signs/Intake and Output Vital Signs (last 24 hours): Temp Pulse Resp BP Pulse Ox 97.7 F 56 L 20 112/59 L 100 01/30/18 08:04 01/30/18 08:04 01/30/18 08:04 01/30/18 08:30 01/30/18 08:04 - Medications Medications: Current Medications Amlodipine Besylate (Norvasc) 10 mg PO DAILY [facility] Last Admin: 01/30/18 08:30 Dose: 10 mg Apixaban (Eliquis) 5 mg PO BID [facility] PRN Reason: Protocol Last Admin: 01/30/18 08:31 Dose: 5 mg Aspirin (Ecotrin) 81 mg PO DAILY [facility] Last Admin: 01/30/18 08:31 Dose: 81 mg Atorvastatin Calcium (Lipitor) 20 mg PO HS [facility] Last Admin: 01/29/18 21:13 Dose: 20 mg Dextrose (Dextrose 50% Inj) 50 ml IVP PRN PRN PRN Reason: If BS < 50 & pt. unresponsive. Docusate Sodium (Colace) 100 mg PO BID [facility] Last Admin: 01/30/18 08:30 Dose: 100 mg Finasteride (Proscar) 5 mg PO DAILY [facility] Last Admin: 01/30/18 08:31 Dose: 5 mg Glipizide (Glucotrol Xl) 5 mg PO ACB [facility] Last Admin: 01/30/18 06:45 Dose: 5 mg Insulin Detemir (Levemir) 20 units SC [facility] Last Admin: 01/29/18 21:12 Dose: 20 units Lactulose (Enulose) 20 gm PO HS PRN PRN Reason: Constipation Last Admin: 01/29/18 21:14 Dose: 20 gm Metformin HCl (Glucophage) 500 mg PO BID [facility] Last Admin: 01/30/18 08:31 Dose: 500 mg Neomycin/Polymyxin/Bacitracin (Neosporin Oint) 1 applic TP Q8 [facility] Last Admin: 01/30/18 05:21 Dose: 1 applic Nystatin (Nystop Topical Powder) 1 applic TOP Q8 [facility] Last Admin: 01/30/18 05:22 Dose: 1 applic Tamsulosin HCl (Flomax) 0.4 mg PO [facility] Last Admin: 01/29/18 21:12 Dose: 0.4 mg - Labs Labs: 01/29/18 05:40 01/29/18 05:40 PT 14.5 Seconds (9.8-13.1) H 01/24/18 05:45 INR 1.3 (0.9-1.2) H 01/24/18 05:45 APTT 35.4 Seconds (25.6-37.1) 01/24/18 05:45 - Head Exam Head Exam: ATRAUMATIC, NORMAL INSPECTION, NORMOCEPHALIC - Eye Exam Eye Exam: EOMI, Normal appearance, PERRL Pupil Exam: Fixed - ENT Exam ENT Exam: Mucous Membranes Moist, Normal Exam - Neck Exam Neck Exam: Full ROM, Normal Inspection. absent: Lymphadenopathy - Respiratory Exam Respiratory Exam: Clear to Ausculation Bilateral, NORMAL BREATHING PATTERN - Cardiovascular Exam Cardiovascular Exam: REGULAR RHYTHM, +S1, +S2. absent: Murmur - GI/Abdominal Exam GI & Abdominal Exam: Soft, Normal Bowel Sounds. absent: Tenderness - Rectal Exam Rectal Exam: NORMAL INSPECTION - Exam External exam: NORMAL EXTERNAL EXAM - Extremities Exam Extremities Exam: Full ROM, Normal Capillary Refill, Normal Inspection. absent : Joint Swelling, Pedal Edema - Back Exam Back Exam: NORMAL INSPECTION - Neurological Exam Neurological Exam: Alert, Awake, CN II-XII Intact, Normal Gait, Oriented x3 Neuro motor strength exam: Left Upper Extremity: 3, Right Upper Extremity: 4, Left Lower Extremity: 3, Right Lower Extremity: 4 - Psychiatric Exam Psychiatric exam: Normal Affect, Normal Mood - Skin Skin Exam: Dry, Intact Assessment and Plan (1) CVA (cerebral vascular accident) Assessment & Plan: plan for physical, occupational, therapy range, motion, strengthening, transfers gait training Status: Acute (2) DVT prophylaxis Status: Acute (3) Dehydration Status: Acute (4) Fall Status: Acute (5) Weakness of left arm Status: Acute (6) Weakness of left leg Status: Acute
--- NOTE | 2018-01-30 13:33 | CP.PCM.PN ---
Subjective - Date & Time of Evaluation Date of Evaluation: 01/30/18 Time of Evaluation: 08:00 - Subjective Subjective: no acute complaints at present, Objective - Vital Signs/Intake and Output Vital Signs (last 24 hours): Temp Pulse Resp BP Pulse Ox 97.7 F 56 L 20 112/59 L 100 01/30/18 08:04 01/30/18 08:04 01/30/18 08:04 01/30/18 08:30 01/30/18 08:04 - Medications Medications: Current Medications Amlodipine Besylate (Norvasc) 10 mg PO DAILY [facility] Last Admin: 01/30/18 08:30 Dose: 10 mg Apixaban (Eliquis) 5 mg PO BID [facility] PRN Reason: Protocol Last Admin: 01/30/18 08:31 Dose: 5 mg Aspirin (Ecotrin) 81 mg PO DAILY [facility] Last Admin: 01/30/18 08:31 Dose: 81 mg Atorvastatin Calcium (Lipitor) 20 mg PO HS [facility] Last Admin: 01/29/18 21:13 Dose: 20 mg Dextrose (Dextrose 50% Inj) 50 ml IVP PRN PRN PRN Reason: If BS < 50 & pt. unresponsive. Docusate Sodium (Colace) 100 mg PO BID [facility] Last Admin: 01/30/18 08:30 Dose: 100 mg Finasteride (Proscar) 5 mg PO DAILY [facility] Last Admin: 01/30/18 08:31 Dose: 5 mg Glipizide (Glucotrol Xl) 5 mg PO ACB [facility] Last Admin: 01/30/18 06:45 Dose: 5 mg Insulin Detemir (Levemir) 20 units SC [facility] Last Admin: 01/29/18 21:12 Dose: 20 units Lactulose (Enulose) 20 gm PO HS PRN PRN Reason: Constipation Last Admin: 01/29/18 21:14 Dose: 20 gm Metformin HCl (Glucophage) 500 mg PO BID [facility] Last Admin: 01/30/18 08:31 Dose: 500 mg Neomycin/Polymyxin/Bacitracin (Neosporin Oint) 1 applic TP Q8 [facility] Last Admin: 01/30/18 05:21 Dose: 1 applic Nystatin (Nystop Topical Powder) 1 applic TOP Q8 [facility] Last Admin: 01/30/18 05:22 Dose: 1 applic Tamsulosin HCl (Flomax) 0.4 mg PO [facility] Last Admin: 01/29/18 21:12 Dose: 0.4 mg - Labs Labs: 01/29/18 05:40 01/29/18 05:40 PT 14.5 Seconds (9.8-13.1) H 01/24/18 05:45 INR 1.3 (0.9-1.2) H 01/24/18 05:45 APTT 35.4 Seconds (25.6-37.1) 01/24/18 05:45 - Head Exam Head Exam: ATRAUMATIC, NORMAL INSPECTION, NORMOCEPHALIC - Eye Exam Eye Exam: EOMI, Normal appearance, PERRL Pupil Exam: NORMAL ACCOMODATION - ENT Exam ENT Exam: Mucous Membranes Moist, Normal Exam - Neck Exam Neck Exam: Full ROM - Respiratory Exam Respiratory Exam: Clear to Ausculation Bilateral, NORMAL BREATHING PATTERN - Cardiovascular Exam Cardiovascular Exam: REGULAR RHYTHM - GI/Abdominal Exam GI & Abdominal Exam: Soft, Normal Bowel Sounds - Rectal Exam Rectal Exam: NORMAL INSPECTION - Exam External exam: NORMAL EXTERNAL EXAM - Extremities Exam Extremities Exam: Full ROM, Normal Capillary Refill, Normal Inspection - Back Exam Back Exam: NORMAL INSPECTION - Neurological Exam Neurological Exam: Alert, Awake Neuro motor strength exam: Left Upper Extremity: 2/1, Right Upper Extremity: 3, Left Lower Extremity: 2/1, Right Lower Extremity: 3 - Psychiatric Exam Psychiatric exam: Normal Affect, Normal Mood - Skin Skin Exam: Dry, Intact Assessment and Plan (1) CVA (cerebral vascular accident) Assessment & Plan: plan for physical, occupational, range of motion, strengtheing gait training Status: Acute (2) DVT prophylaxis Status: Acute (3) Dehydration Status: Acute (4) Fall Status: Acute (5) Weakness of left arm Status: Acute (6) Weakness of left leg Status: Acute
[2018-01-30] MEDS: Insulin Detemir 100 Units/ml Inj SC SCH (21:32)
[2018-01-31] MEDS: Neomycin/Polymyxin/Bacitracin OINT 0.5OZ TP SCH ×3 (05:32→22:11)
[2018-01-31] MEDS: GlipiZIDE 5 mg SR Tab PO SCH (06:37)
--- NOTE | 2018-01-31 09:03 | CP.PCM.PN ---
Subjective - Date & Time of Evaluation Date of Evaluation: 01/31/18 Time of Evaluation: 09:03 - Subjective Subjective: pt doing well. no f/c, n/v/d. states gets dyspnea w/ phys therapy, + murmur heard, cardio aware and will reassess Objective - Vital Signs/Intake and Output Vital Signs (last 24 hours): Temp Pulse Resp BP Pulse Ox 97.2 F L 63 18 137/73 99 01/31/18 07:56 01/31/18 07:56 01/31/18 07:56 01/31/18 08:55 01/31/18 07:56 - Medications Medications: Current Medications Amlodipine Besylate (Norvasc) 10 mg PO DAILY [facility] Last Admin: 01/31/18 08:55 Dose: 10 mg Apixaban (Eliquis) 5 mg PO BID [facility] PRN Reason: Protocol Last Admin: 01/31/18 08:55 Dose: 5 mg Aspirin (Ecotrin) 81 mg PO DAILY [facility] Last Admin: 01/31/18 08:56 Dose: 81 mg Atorvastatin Calcium (Lipitor) 20 mg PO HS [facility] Last Admin: 01/30/18 21:32 Dose: 20 mg Dextrose (Dextrose 50% Inj) 50 ml IVP PRN PRN PRN Reason: If BS < 50 & pt. unresponsive. Docusate Sodium (Colace) 100 mg PO BID [facility] Last Admin: 01/31/18 08:55 Dose: 100 mg Finasteride (Proscar) 5 mg PO DAILY [facility] Last Admin: 01/31/18 08:56 Dose: 5 mg Glipizide (Glucotrol Xl) 5 mg PO ACB [facility] Last Admin: 01/31/18 06:37 Dose: 5 mg Insulin Detemir (Levemir) 20 units SC HS [facility] Last Admin: 01/30/18 21:32 Dose: 20 units Lactulose (Enulose) 20 gm PO HS PRN PRN Reason: Constipation Last Admin: 01/29/18 21:14 Dose: 20 gm Metformin HCl (Glucophage) 500 mg PO BID [facility] Last Admin: 01/31/18 08:55 Dose: 500 mg Neomycin/Polymyxin/Bacitracin (Neosporin Oint) 1 applic TP Q8 [facility] Last Admin: 01/31/18 05:32 Dose: 1 applic Nystatin (Nystop Topical Powder) 1 applic TOP Q8 [facility] Last Admin: 03/07/18 05:32 Dose: 1 applic Tamsulosin HCl (Flomax) 0.4 mg PO HS [facility] Last Admin: 01/30/18 21:32 Dose: 0.4 mg - Labs Labs: 01/29/18 05:40 01/29/18 05:40 PT 14.5 Seconds (9.8-13.1) H 01/24/18 05:45 INR 1.3 (0.9-1.2) H 01/24/18 05:45 APTT 35.4 Seconds (25.6-37.1) 01/24/18 05:45 - Constitutional Appears: Well, Non-toxic, No Acute Distress - Head Exam Head Exam: ATRAUMATIC, NORMAL INSPECTION, NORMOCEPHALIC - Eye Exam Eye Exam: EOMI, Normal appearance, PERRL Pupil Exam: NORMAL ACCOMODATION, PERRL - ENT Exam ENT Exam: Mucous Membranes Moist, Normal Exam - Neck Exam Neck Exam: Full ROM, Normal Inspection. absent: Lymphadenopathy - Respiratory Exam Respiratory Exam: Clear to Ausculation Bilateral, NORMAL BREATHING PATTERN - Cardiovascular Exam Cardiovascular Exam: REGULAR RHYTHM, RRR, +S1, +S2. absent: Murmur Additional comments: systolic murmur heard 3-4/6 ?? heard previously but appears more pronounced - GI/Abdominal Exam GI & Abdominal Exam: Soft, Normal Bowel Sounds. absent: Tenderness - Extremities Exam Extremities Exam: Full ROM, Normal Capillary Refill, Normal Inspection. absent : Joint Swelling, Pedal Edema - Back Exam Back Exam: NORMAL INSPECTION - Neurological Exam Neurological Exam: Alert, Awake, CN II-XII Intact, Normal Gait, Oriented x3 - Psychiatric Exam Psychiatric exam: Normal Affect, Normal Mood - Skin Skin Exam: Dry, Intact, Normal Color, Warm Assessment and Plan (1) CVA (cerebral vascular accident) Status: Acute (2) DVT prophylaxis Status: Acute - Assessment and Plan (Free Text) Assessment: (1) CVA (cerebral vascular accident) Assessment and Plan: eliquis cardio/neuro pt/ot physiatry Status: Acute (2) DVT prophylaxis Assessment and Plan: scd nad ae hose eliquis Status: Acute [id number] levemir, diet control, riss, fsbg dietary teaching for izabela [id number] reeval
--- NOTE | 2018-01-31 12:26 | PSY.TMCNF ---
Nursing - Vital Signs Vital Signs (Last 8 hours): Vital Signs 01/31/18 01/31/18 01/31/18 07:56 08:55 12:00 Temperature 97.2 F L 97.2 F L Pulse Rate 63 63 Respiratory 18 18 Rate Blood Pressure 137/73 137/73 137/73 O2 Sat by Pulse 99 Oximetry Pain: 0 - Precautions: Precautions: Fall Prevention - Medications/Other Issues Comment: Noted lesser bladder accidents. Patient's mood improved - Consults Comment: Dr. Wilcox - Toileting Toileting: Contact Guard - Bladder Management Bladder Pattern: Normal Voiding Method: Toilet, Urinal Bladder Management: Supervision Frequency of Accidents: 4 - Bowel Management Bowel Pattern: Constipated Bowel Management: Supervision Frequency of Accidents: 0 - Transfers Transfers: Contact Guard - ADL's ADL's: Moderate Assistance - Patient/Family Teaching Comments: CARE POST CVA AND SAFETY PRECAUTIONS - Goals/Time Frame Comments: PER MULTIDISCIPLINARY CARE PLAN GOALS - Provider Provider: LUCIA COY RN CRRN Physical Therapy - Bed Mobility Bed Mobility: Contact Guard - Transfers Wheelchair to Mat: Contact Guard, Minimal Assistance Sit to Stand: Contact Guard - Ambulation Level of Assistance: Supervision, Verbal Cues, Contact Guard Distance (ft.): 150 Assistive Devices: N/A - Stair Negotiation Stairs: Level of Assistance: Verbal Cues, Contact Guard Number of Stairs: 12 Stairs: Assistive Devices: Left Handrail - Standing Balance Static Stand: Contact Guard Assist Dynamic Stand: Minimal Assistance - Pain Pain (assessed during therapy session): 0 - Insight/Carryover Insight/Carryover: Good - Patient/Family Education Comment: -adls, transfer, mobility education using adaptive/compensatory strategies. -LUE managment/HEP, ROM/strength exercises. -encouraged to sit up in chair dduring the day. -rehab/OT goals, plan of care. -safety and adaptive strategies - Assessment/Plan Assessment: Oswald Segundo continues to present with mild deficits in cognitive- linguistic skills as evidenced by decreased short term recall and thought organization. Pt would benefit from continued skilled ST tx 3-5x/week to address these areas. - Goals Timeframe: 7 days Goals: -GROOMING: I/setup seated. -UPPER BODY SELF CARE: S for pullover shirt and verbal cues. -LOWER BODY DRESSING/BATHING: min assist and verbal cues with adaptive strategies. -TOILETING: Min assist and verbal cues. -TRANSFERS:<->bed , commode, w/c and other surfaces with CG/Cs and verbal cues. -LUE STRENGTH: increase to 3/5 throughout as needed to use as gross assist during adls, transfers and mobility - Provider License Number: [id number] Occupational Therapy - Arousal/Attention/Orientation Patient Orientation: Person, Place - ADL/IADL Self Feeding: Verbal Cues, Set-up Help Grooming: Verbal Cues, Minimal Assistance Bathing-Upper Extremity: Verbal Cues, Minimal Assistance Bathing-Lower Extremity: Verbal Cues, Minimal Assistance Dressing-Upper Extremity: Verbal Cues, Minimal Assistance Dressing-Lower Extremity: Verbal Cues, Minimal Assistance - Sitting Balance Static Sitting: Independent with upper extremity support Dynamic Sitting: Requires supervision - Transfers Wheelchair to Bed Transfers: Contact Guard Toilet Transfers: Contact Guard, Minimal Assistance Tub Transfers: Minimal Assistance - Wheelchair Management Level of Assistance: Modified Independent, Supervision Distance (ft.): 150 - Upper Extremity Status Right Upper Extremity Comment: WNL Left Upper Extremity Comment: PROM is WNLS; AROM limited by impaired strength. Strength as follows: L shoulder flex/abduction 3-/5 ,elbow flex/extension 3-/5, forearm supination/pronation 3-/5 . wrist flex/estension 2-/5, digit flex/ extension 3-/5. thumb flex/extension 1/5 - Pain Pain (assessed during therapy session): 0 - Insight/Carryover Insight/Carryover: Good - Patient/Family Education Comment: -adls, transfer, mobility education using adaptive/compensatory strategies. -LUE managment/HEP, ROM/strength exercises. -encouraged to sit up in chair dduring the day. -rehab/OT goals, plan of care. -safety and adaptive strategies - Assessment/Plan Assessment: Oswald Segundo continues to present with mild deficits in cognitive- linguistic skills as evidenced by decreased short term recall and thought organization. Pt would benefit from continued skilled ST tx 3-5x/week to address these areas. - Goals Timeframe: 7 days Goals: -GROOMING: I/setup seated. -UPPER BODY SELF CARE: S for pullover shirt and verbal cues. -LOWER BODY DRESSING/BATHING: min assist and verbal cues with adaptive strategies. -TOILETING: Min assist and verbal cues. -TRANSFERS:<->bed , commode, w/c and other surfaces with CG/Cs and verbal cues. -LUE STRENGTH: increase to 3/5 throughout as needed to use as gross assist during adls, transfers and mobility - Provider Therapist: VAN Guidry License Number: [id number] Speech Therapy - Consult Information Patient on Program: Yes Medical Diagnosis: CVA Treatment Diagnosis: mild cognitive deficits - Assessment Memory Impairment: Mild - Plan Assessment: Oswald Segundo continues to present with mild deficits in cognitive- linguistic skills as evidenced by decreased short term recall and thought organization. Pt would benefit from continued skilled ST tx 3-5x/week to address these areas. Plan: Continue Speech/Language Therapy Frequency: 3-5 times per week Duration: 1 week - Provider Therapist: Nimo Tucker License Number: [id number] Recreational Therapy - Participation Participation: Participates in Individual and/or Group Sessions - Attendance Attendance: 3-5 times per week - Activities Leisure Activities: Cards and Games - Socialization Level of Socialization: Initiates/interacts freely with care givers and peer - Diversional Time Diversional Time: television - Assessment Assessment/Plan: Oswald Segundo continues to present with mild deficits in cognitive-linguistic skills as evidenced by decreased short term recall and thought organization. Pt would benefit from continued skilled ST tx 3-5x/week to address these areas. - Provider Therapist: Rosa Nugent, RN TELEPHONIC #[id number] Nutrition - Current Diet Current Diet/ Supplement/ Feedings: Moderate consistent CHO heart healthy diet - Appetite Percent Meal Consumed: 75-100% - Comments Comments: CARE POST CVA AND SAFETY PRECAUTIONS - Assessment/Goals/Time Frame Assessment/Goals/Time Frame: Noted lesser bladder accidents. Patient's mood improved - Provider Provider: Harika Doll MS, RD Case Management - Psychosocial Assessment Support Systems: [facility] (Marge Jaime ([place])- [phone] Psychological Interventions/Needs: Patient is alert with mild memory deficits. Patient requiring encouragement to participate in therapy Discharge Concerns: Patient currently requiring min-mod A overall. Patient with no support in the area. Patient/Family Meeting: CM met with patient and rehab team Intervention/Goal/Outcome:: 1. PLAN: [facility] in [place] close to [place]. 2. Tentative discharge date: 02/08/2018. 3. CM to coordinate transfer with [employer]. 4. continued emotional support. - Discharge Plan Discharge Plan: Subacute care, intermediate teacher care - Provider Provider: NORMA Davenport LSW License Number: [id number] Rehabilitation Plan - Treatment Plan Treatment Plan: Physical Therapy, Occupational Therapy, Speech, Dietary - Recommendation Recommendation: Physical Therapy, Occupational Therapy, Dietary, Patient/Family Education - Discharge Plan Discharge to: Subacute (15)
--- NOTE | 2018-01-31 16:14 | CP.PCM.CON ---
History of Present Illness - History of Present Illness History of Present Illness: I was asked to evaluate patient by Dr Murillo. Patient is a 82 year old male with PMH HTN, CVA, who is admitted to rehab. The patient presented to [facility] with weakness and was found to have a CVA/ he was managed with anticoaguant therapy. The patient is currently undergoing rehab after CVA. he denies chest pain or dyspnea. Review of Systems - Constitutional Constitutional: absent: As Per HPI, Anorexia, Chills, Daytime Sleepiness, Excessive Sweating, Fatigue, Fever, Frequent Falls, Headache, Increased Appetite , Lethargy, Malaise, Night Sweats, Snoring, Sleep Apnea, Weight Gain, Weight Loss, Weakness, Other - EENT Eyes: absent: As Per HPI, Blind Spots, Blurred Vision, Change in Vision, Decreased Night Vision, Diplopia, Discharge, Dry Eye, Exophthalmos, Floaters, Irritation, Itchy Eyes, Loss of Peripheral Vision, Pain, Photophobia, Requires Corrective Lenses, Sees Flashes, Spots in Vision, Tunnel Vision, Other Visual Disturbances, Loss of Vision, Other Ears: absent: As Per HPI, Decreased Hearing, Ear Discharge, Ear Pain, Tinnitus, Abnormal Hearing, Disequilibrium, Dizziness, Other Nose/Mouth/Throat: absent: As Per HPI, Epistaxis, Nasal Congestion, Nasal Discharge, Nasal Obstruction, Nasal Trauma, Nose Pain, Post Nasal Drip, Sinus Pain, Sinus Pressure, Bleeding Gums, Change in Voice, Dental Pain, Dry Mouth, Dysphagia, Halitosis, Hoarsness, Lip Swelling, Mouth Lesions, Mouth Pain, Odynophagia, Sore Throat, Throat Swelling, Tongue Swelling, Facial Pain, Neck Pain, Neck Mass, Other - Respiratory Respiratory: absent: As Per HPI, Cough, Dyspnea, Hemoptysis, Dyspnea on Exertion , Wheezing, Snoring, Stridor, Pain on Inspiration, Chest Congestion, Excessive Mucous Production, Change in Mucous Color, Pain with Coughing, Other - Gastrointestinal Gastrointestinal: absent: As Per HPI, Abdominal Pain, Belching, Bloating, Change in Bowel Habits, Change in Stool Character, Coffee Ground Emesis, Constipation, Cramping, Diarrhea, Dyspepsia, Dysphagia, Early Satiety, Excessive Flatus, Fecal Incontinence, Heartburn, Hematemesis, Hematochezia, Loose Stools, Melena, Nausea, Odynophagia, Temesmus, Vomiting, Other - Genitourinary Genitourinary: absent: As Per HPI, Change in Urinary Stream, Difficulty Urinating, Dysuria, Flank Pain, Hematuria, Pyuria, Nocturia, Urinary Incontinence, Urinary Frequency, Urinary Hesitance, Urinary Urgency, Voiding Freq/Small Amts, Freq UTI, Hx Renal/Bladder Calculi, Hx /Renal Surgery, Bladder Distension, Other - Musculoskeletal Musculoskeletal: absent: As Per HPI, Abnormal Gait, Arthralgias, Atrophy, Back Pain, Deformity, Joint Swelling, Limited Range of Motion, Loss of Height, Muscle Cramps, Muscle Weakness, Myalgias, Neck Pain, Numbness, Radiating Pain into Limb, Stiffness, Tingling, Other - Integumentary Integumentary: absent: As Per HPI, Acne, Alopecia, Bleeding Lesions, Change in Hair, Change in Nails, Change in Pigmentation, Changing Lesions, Dry Skin, Erythema, Furuncle, Hirsutism, Lesions, New Lesions, Non-Healing Lesions, Photosensitivity, Pruritus, Rash, Skin Pain, Skin Ulcer, Sores, Striae, Swelling , Unusual Bruising, Wounds, Jaundice, Other - Neurological Neurological: Focal Weakness - Psychiatric Psychiatric: absent: As Per HPI, Abnormal Sleep Pattern, Anhedonia, Anxiety, Auditory Hallucinations, Behavioral Changes, Change in Appetite, Change in Libido, Confusion, Depression, Difficulty Concentrating, Hallucinations, Homicidal Ideation, Hopelessness, Irritability, Memory Loss, Mood Swings, Panic Attacks, Paranoia, Suicidal Ideation, Visual Hallucinations, Tactile Hallucinations, Other - Endocrine Endocrine: absent: As Per HPI, Change in Body Appearance, Change in Libido, Cold Intolorance, Deepening of Voice, Excessive Sweating, Fatigue, Flushing, Heat Intolorance, Increase in Ring/Shoe/Hat Size, Palpitations, Polydipsia, Polyphagia, Polyuria, Other - Hematologic/Lymphatic Hematologic: absent: As Per HPI, Easy Bleeding, Easy Bruising, Lymphadenopathy, Other Past Patient History - Past Medical History & Family History Past Medical History?: Yes - Past Social History Smoking Status: Never Smoked - CARDIAC Hx Hypercholesterolemia: Yes Hx Hypertension: Yes - PULMONARY Hx Respiratory Disorders: No - NEUROLOGICAL Hx Neurological Disorder: Yes HX Cerebrovascular Accident: Yes - HEENT Hx HEENT Problems: Yes Hx Cataracts: Yes Hx Glaucoma: Yes Other/Comment: wears eyeglasses for reading. - RENAL Other/Comment: acute kidney injury, hypernatremia - ENDOCRINE/METABOLIC Hx Diabetes Mellitus Type 2: Yes - HEMATOLOGICAL/ONCOLOGICAL Hx Blood Disorders: No Hx AIDS: No Hx Human Immunodeficiency Virus (HIV): No - INTEGUMENTARY Hx Dermatological Problems: No - MUSCULOSKELETAL/RHEUMATOLOGICAL Hx Falls: Yes (2x before admission) - GASTROINTESTINAL Hx Gastrointestinal Disorders: Yes Hx Constipation: Yes - GENITOURINARY/GYNECOLOGICAL Hx Genitourinary Disorders: Yes Hx Prostate Problems: Yes - PSYCHIATRIC Hx Substance Use: No - SURGICAL HISTORY Hx Surgeries: No - ANESTHESIA Hx Anesthesia: No Hx Anesthesia Reactions: No Hx Malignant Hyperthermia: No Has any member of the family had a problem w/ anesthesia?: No Meds Allergies/Adverse Reactions: Allergies Allergy/AdvReac Type Severity Reaction Status Date / Time No Known Allergies Allergy Verified 01/16/18 18:38 - Medications Medications: Current Medications Amlodipine Besylate (Norvasc) 10 mg PO DAILY [facility] Last Admin: 01/31/18 08:55 Dose: 10 mg Apixaban (Eliquis) 5 mg PO BID [facility] PRN Reason: Protocol Last Admin: 01/31/18 08:55 Dose: 5 mg Aspirin (Ecotrin) 81 mg PO DAILY [facility] Last Admin: 01/31/18 08:56 Dose: 81 mg Atorvastatin Calcium (Lipitor) 20 mg PO HS [facility] Last Admin: 01/30/18 21:32 Dose: 20 mg Dextrose (Dextrose 50% Inj) 50 ml IVP PRN PRN PRN Reason: If BS < 50 & pt. unresponsive. Docusate Sodium (Colace) 100 mg PO BID [facility] Last Admin: 01/31/18 08:55 Dose: 100 mg Finasteride (Proscar) 5 mg PO DAILY [facility] Last Admin: 01/31/18 08:56 Dose: 5 mg Glipizide (Glucotrol Xl) 5 mg PO ACB [facility] Last Admin: 01/31/18 06:37 Dose: 5 mg Insulin Detemir (Levemir) 20 units SC HS [facility] Last Admin: 01/30/18 21:32 Dose: 20 units Lactulose (Enulose) 20 gm PO HS PRN PRN Reason: Constipation Last Admin: 01/29/18 21:14 Dose: 20 gm Metformin HCl (Glucophage) 500 mg PO BID [facility] Last Admin: 01/31/18 08:55 Dose: 500 mg Neomycin/Polymyxin/Bacitracin (Neosporin Oint) 1 applic TP Q8 [facility] Last Admin: 01/31/18 05:32 Dose: 1 applic Nystatin (Nystop Topical Powder) 1 applic TOP Q8 [facility] Last Admin: 01/31/18 05:32 Dose: 1 applic Tamsulosin HCl (Flomax) 0.4 mg PO HS [facility] Last Admin: 01/30/18 21:32 Dose: 0.4 mg Physical Exam - Constitutional Appears: Non-toxic - Head Exam Head Exam: NORMAL INSPECTION - Eye Exam Eye Exam: Normal appearance - ENT Exam ENT Exam: Mucous Membranes Moist - Neck Exam Neck exam: Positive for: Full Rom - Respiratory Exam Respiratory Exam: NORMAL BREATHING PATTERN - Cardiovascular Exam Cardiovascular Exam: REGULAR RHYTHM, Systolic Murmur - GI/Abdominal Exam GI & Abdominal Exam: Normal Bowel Sounds - Rectal Exam Rectal Exam: Deferred - Extremities Exam Extremities exam: Positive for: pedal edema - Back Exam Back exam: NORMAL INSPECTION - Neurological Exam Neurological exam: Alert, Oriented x3 - Psychiatric Exam Psychiatric exam: Normal Affect - Skin Skin Exam: Normal Color Results - Vital Signs Recent Vital Signs: Last Vital Signs Temp 97.2 F L 01/31/18 12:00 Pulse 63 01/31/18 12:00 Resp 18 01/31/18 12:00 BP 137/73 01/31/18 12:00 Pulse Ox 99 01/31/18 07:56 - Labs Result Diagrams: 01/29/18 05:40 01/29/18 05:40 Labs: Laboratory Results - last 24 hr 01/30/18 01/31/18 01/31/18 21:26 05:20 11:01 POC Glucose (mg/dL) 148 H 102 173 H 01/31/18 16:02 POC Glucose (mg/dL) 142 H - EKG Data EKG Interpreted by: Myself Assessment & Plan (1) CVA (cerebral vascular accident) Assessment and Plan: patient is progressively improving. recommend continued therapy. Status: Acute (2) Aortic stenosis Assessment and Plan: moderate. no need for surgical intervention. Status: Acute
--- NOTE | 2018-01-31 16:14 | CP.PCM.CON ---
History of Present Illness - History of Present Illness History of Present Illness: Patient seen/examined. consult to follow. Patient has mdoerate aortic valve stenosis. Echocardigoram reviewed. Recommend conitnued anticaogulatn therapy for CVA. No inidcation for surgery at this time. Past Patient History - Past Medical History & Family History Past Medical History?: Yes - Past Social History Smoking Status: Never Smoked - CARDIAC Hx Hypercholesterolemia: Yes Hx Hypertension: Yes - PULMONARY Hx Respiratory Disorders: No - NEUROLOGICAL Hx Neurological Disorder: Yes HX Cerebrovascular Accident: Yes - HEENT Hx HEENT Problems: Yes Hx Cataracts: Yes Hx Glaucoma: Yes Other/Comment: wears eyeglasses for reading. - RENAL Other/Comment: acute kidney injury, hypernatremia - ENDOCRINE/METABOLIC Hx Diabetes Mellitus Type 2: Yes - HEMATOLOGICAL/ONCOLOGICAL Hx Blood Disorders: No Hx AIDS: No Hx Human Immunodeficiency Virus (HIV): No - INTEGUMENTARY Hx Dermatological Problems: No - MUSCULOSKELETAL/RHEUMATOLOGICAL Hx Falls: Yes (2x before admission) - GASTROINTESTINAL Hx Gastrointestinal Disorders: Yes Hx Constipation: Yes - GENITOURINARY/GYNECOLOGICAL Hx Genitourinary Disorders: Yes Hx Prostate Problems: Yes - PSYCHIATRIC Hx Substance Use: No - SURGICAL HISTORY Hx Surgeries: No - ANESTHESIA Hx Anesthesia: No Hx Anesthesia Reactions: No Hx Malignant Hyperthermia: No Has any member of the family had a problem w/ anesthesia?: No Meds Allergies/Adverse Reactions: Allergies Allergy/AdvReac Type Severity Reaction Status Date / Time No Known Allergies Allergy Verified 01/16/18 18:38 - Medications Medications: Current Medications Amlodipine Besylate (Norvasc) 10 mg PO DAILY [facility] Last Admin: 01/31/18 08:55 Dose: 10 mg Apixaban (Eliquis) 5 mg PO BID [facility] PRN Reason: Protocol Last Admin: 01/31/18 08:55 Dose: 5 mg Aspirin (Ecotrin) 81 mg PO DAILY [facility] Last Admin: 01/31/18 08:56 Dose: 81 mg Atorvastatin Calcium (Lipitor) 20 mg PO HS [facility] Last Admin: 01/30/18 21:32 Dose: 20 mg Dextrose (Dextrose 50% Inj) 50 ml IVP PRN PRN PRN Reason: If BS < 50 & pt. unresponsive. Docusate Sodium (Colace) 100 mg PO BID [facility] Last Admin: 01/31/18 08:55 Dose: 100 mg Finasteride (Proscar) 5 mg PO DAILY [facility] Last Admin: 01/31/18 08:56 Dose: 5 mg Glipizide (Glucotrol Xl) 5 mg PO ACB [facility] Last Admin: 01/31/18 06:37 Dose: 5 mg Insulin Detemir (Levemir) 20 units SC HS [facility] Last Admin: 01/30/18 21:32 Dose: 20 units Lactulose (Enulose) 20 gm PO HS PRN PRN Reason: Constipation Last Admin: 01/29/18 21:14 Dose: 20 gm Metformin HCl (Glucophage) 500 mg PO BID [facility] Last Admin: 01/31/18 08:55 Dose: 500 mg Neomycin/Polymyxin/Bacitracin (Neosporin Oint) 1 applic TP Q8 [facility] Last Admin: 01/31/18 05:32 Dose: 1 applic Nystatin (Nystop Topical Powder) 1 applic TOP Q8 [facility] Last Admin: 01/31/18 05:32 Dose: 1 applic Tamsulosin HCl (Flomax) 0.4 mg PO [facility] Last Admin: 01/30/18 21:32 Dose: 0.4 mg Results - Vital Signs Recent Vital Signs: Last Vital Signs Temp 97.2 F L 01/31/18 12:00 Pulse 63 01/31/18 12:00 Resp 18 01/31/18 12:00 BP 137/73 01/31/18 12:00 Pulse Ox 99 01/31/18 07:56 - Labs Result Diagrams: 01/29/18 05:40 01/29/18 05:40 Labs: Laboratory Results - last 24 hr 01/30/18 01/31/18 01/31/18 21:26 05:20 11:01 POC Glucose (mg/dL) 148 H 102 173 H 01/31/18 16:02 POC Glucose (mg/dL) 142 H
--- NOTE | 2018-01-31 16:38 | CP.PCM.PN ---
Subjective - Date & Time of Evaluation Date of Evaluation: 01/31/18 Time of Evaluation: 16:37 - Subjective Subjective: Dr Aleman coverage for Dr Christianson patient seen in room denies sob/cp ambulating 140' in therapy without AD continue current care Objective - Vital Signs/Intake and Output Vital Signs (last 24 hours): Temp Pulse Resp BP Pulse Ox 97.2 F L 63 18 137/73 99 01/31/18 12:00 01/31/18 12:00 01/31/18 12:00 01/31/18 12:00 01/31/18 07:56 - Medications Medications: Current Medications Amlodipine Besylate (Norvasc) 10 mg PO DAILY [facility] Last Admin: 01/31/18 08:55 Dose: 10 mg Apixaban (Eliquis) 5 mg PO BID [facility] PRN Reason: Protocol Last Admin: 01/31/18 08:55 Dose: 5 mg Aspirin (Ecotrin) 81 mg PO DAILY [facility] Last Admin: 01/31/18 08:56 Dose: 81 mg Atorvastatin Calcium (Lipitor) 20 mg PO HS [facility] Last Admin: 01/30/18 21:32 Dose: 20 mg Dextrose (Dextrose 50% Inj) 50 ml IVP PRN PRN PRN Reason: If BS < 50 & pt. unresponsive. Docusate Sodium (Colace) 100 mg PO BID [facility] Last Admin: 01/31/18 08:55 Dose: 100 mg Finasteride (Proscar) 5 mg PO DAILY [facility] Last Admin: 01/31/18 08:56 Dose: 5 mg Glipizide (Glucotrol Xl) 5 mg PO ACB [facility] Last Admin: 01/31/18 06:37 Dose: 5 mg Insulin Detemir (Levemir) 20 units SC HS [facility] Last Admin: 01/30/18 21:32 Dose: 20 units Lactulose (Enulose) 20 gm PO HS PRN PRN Reason: Constipation Last Admin: 01/29/18 21:14 Dose: 20 gm Metformin HCl (Glucophage) 500 mg PO BID [facility] Last Admin: 01/31/18 08:55 Dose: 500 mg Neomycin/Polymyxin/Bacitracin (Neosporin Oint) 1 applic TP Q8 [facility] Last Admin: 01/31/18 05:32 Dose: 1 applic Nystatin (Nystop Topical Powder) 1 applic TOP Q8 [facility] Last Admin: 01/31/18 05:32 Dose: 1 applic Tamsulosin HCl (Flomax) 0.4 mg PO HS [facility] Last Admin: 01/30/18 21:32 Dose: 0.4 mg - Labs Labs: 01/29/18 05:40 01/29/18 05:40 PT 14.5 Seconds (9.8-13.1) H 01/24/18 05:45 INR 1.3 (0.9-1.2) H 01/24/18 05:45 APTT 35.4 Seconds (25.6-37.1) 01/24/18 05:45
[2018-01-31] MEDS: Insulin Detemir 100 Units/ml Inj SC SCH (22:09)
[2018-02-01] MEDS: GlipiZIDE 5 mg SR Tab PO SCH ×2 (07:01→07:39)
[2018-02-01] MEDS: Neomycin/Polymyxin/Bacitracin OINT 0.5OZ TP SCH ×3 (07:02→21:23)
[2018-02-01] MEDS: Insulin Detemir 100 Units/ml Inj SC SCH (21:24)
[2018-02-02] MEDS: Neomycin/Polymyxin/Bacitracin OINT 0.5OZ TP SCH (06:49)
[2018-02-02] MEDS: GlipiZIDE 5 mg SR Tab PO SCH (07:28)
--- NOTE | 2018-02-02 07:42 | CP.PCM.PN ---
Subjective - Date & Time of Evaluation Date of Evaluation: 02/02/18 Time of Evaluation: 07:42 - Subjective Subjective: pt doing well no f/c, n/v/d. lue/lle 4/5. gait improving. per rn has rash to rfa minimal relief w/ neosporin. Objective - Vital Signs/Intake and Output Vital Signs (last 24 hours): Temp Pulse Resp BP Pulse Ox 97.4 F L 62 20 114/61 98 02/01/18 20:43 02/01/18 20:43 02/01/18 20:43 02/01/18 20:43 02/01/18 20:43 - Medications Medications: Current Medications Amlodipine Besylate (Norvasc) 10 mg PO DAILY [facility] Last Admin: 02/01/18 09:07 Dose: 10 mg Apixaban (Eliquis) 5 mg PO BID [facility] PRN Reason: Protocol Last Admin: 02/01/18 16:53 Dose: 5 mg Aspirin (Ecotrin) 81 mg PO DAILY [facility] Last Admin: 02/01/18 09:09 Dose: 81 mg Atorvastatin Calcium (Lipitor) 20 mg PO HS [facility] Last Admin: 02/01/18 21:21 Dose: 20 mg Dextrose (Dextrose 50% Inj) 50 ml IVP PRN PRN PRN Reason: If BS < 50 & pt. unresponsive. Docusate Sodium (Colace) 100 mg PO BID [facility] Last Admin: 02/01/18 16:53 Dose: 100 mg Finasteride (Proscar) 5 mg PO DAILY [facility] Last Admin: 02/01/18 09:09 Dose: 5 mg Glipizide (Glucotrol Xl) 5 mg PO ACB [facility] Last Admin: 02/02/18 07:28 Dose: 5 mg Insulin Detemir (Levemir) 20 units SC HS [facility] Last Admin: 02/01/18 21:24 Dose: 20 units Lactulose (Enulose) 20 gm PO HS PRN PRN Reason: Constipation Last Admin: 01/29/18 21:14 Dose: 20 gm Metformin HCl (Glucophage) 500 mg PO BID [facility] Last Admin: 02/01/18 16:53 Dose: 500 mg Neomycin/Polymyxin/Bacitracin (Neosporin Oint) 1 applic TP Q8 [facility] Last Admin: 02/02/18 06:49 Dose: 1 applic Nystatin (Nystop Topical Powder) 1 applic TOP Q8 [facility] Last Admin: 02/02/18 06:50 Dose: 1 applic Tamsulosin HCl (Flomax) 0.4 mg PO HS [facility] Last Admin: 02/01/18 21:21 Dose: 0.4 mg - Labs Labs: 01/29/18 05:40 01/29/18 05:40 PT 14.5 Seconds (9.8-13.1) H 01/24/18 05:45 INR 1.3 (0.9-1.2) H 01/24/18 05:45 APTT 35.4 Seconds (25.6-37.1) 01/24/18 05:45 - Constitutional Appears: Well, Non-toxic, No Acute Distress - Head Exam Head Exam: ATRAUMATIC, NORMAL INSPECTION, NORMOCEPHALIC - Eye Exam Eye Exam: EOMI, Normal appearance, PERRL Pupil Exam: NORMAL ACCOMODATION, PERRL - ENT Exam ENT Exam: Mucous Membranes Moist, Normal Exam - Neck Exam Neck Exam: Full ROM, Normal Inspection. absent: Lymphadenopathy - Respiratory Exam Respiratory Exam: Clear to Ausculation Bilateral, NORMAL BREATHING PATTERN - Cardiovascular Exam Cardiovascular Exam: REGULAR RHYTHM, RRR, +S1, +S2. absent: Murmur - GI/Abdominal Exam GI & Abdominal Exam: Soft, Normal Bowel Sounds. absent: Tenderness - Extremities Exam Extremities Exam: Full ROM, Normal Capillary Refill, Normal Inspection. absent : Joint Swelling, Pedal Edema - Back Exam Back Exam: NORMAL INSPECTION - Neurological Exam Neurological Exam: Alert, Awake, CN II-XII Intact, Normal Gait, Oriented x3 - Psychiatric Exam Psychiatric exam: Normal Affect, Normal Mood - Skin Skin Exam: Dry, Intact, Normal Color, Rash, Warm Assessment and Plan (1) CVA (cerebral vascular accident) Status: Acute (2) DVT prophylaxis Status: Acute - Assessment and Plan (Free Text) Assessment: (1) CVA (cerebral vascular accident) Assessment and Plan: eliquis cardio/neuro pt/ot physiatry Status: Acute (2) DVT prophylaxis Assessment and Plan: scd nad ae hose eliquis Status: Acute [id number] levemir, diet control, riss, fsbg dietary teaching for izabela [id number] reeval, eliquis 5-red rash-bactroban, will reeval
--- NOTE | 2018-02-02 10:24 | CP.PCM.CON ---
History of Present Illness - History of Present Illness History of Present Illness: Psychology Note= Pt seen for supportive therapy 7:40-8:05. Pt reported gains over the week, and satisfaction in therapy. Pt denied depression, denied anxiety, spoke of improved mood with affect brighter. Pt discussed positive treatment by others and adjusting incresingly well. plan: Continued Supportive therapy Past Patient History - Past Medical History & Family History Past Medical History?: Yes - Past Social History Smoking Status: Never Smoked - CARDIAC Hx Hypercholesterolemia: Yes Hx Hypertension: Yes - PULMONARY Hx Respiratory Disorders: No - NEUROLOGICAL Hx Neurological Disorder: Yes HX Cerebrovascular Accident: Yes - HEENT Hx HEENT Problems: Yes Hx Cataracts: Yes Hx Glaucoma: Yes Other/Comment: wears eyeglasses for reading. - RENAL Other/Comment: acute kidney injury, hypernatremia - ENDOCRINE/METABOLIC Hx Diabetes Mellitus Type 2: Yes - HEMATOLOGICAL/ONCOLOGICAL Hx Blood Disorders: No Hx AIDS: No Hx Human Immunodeficiency Virus (HIV): No - INTEGUMENTARY Hx Dermatological Problems: No - MUSCULOSKELETAL/RHEUMATOLOGICAL Hx Falls: Yes (2x before admission) - GASTROINTESTINAL Hx Gastrointestinal Disorders: Yes Hx Constipation: Yes - GENITOURINARY/GYNECOLOGICAL Hx Genitourinary Disorders: Yes Hx Prostate Problems: Yes - PSYCHIATRIC Hx Substance Use: No - SURGICAL HISTORY Hx Surgeries: No - ANESTHESIA Hx Anesthesia: No Hx Anesthesia Reactions: No Hx Malignant Hyperthermia: No Has any member of the family had a problem w/ anesthesia?: No Meds Allergies/Adverse Reactions: Allergies Allergy/AdvReac Type Severity Reaction Status Date / Time No Known Allergies Allergy Verified 01/16/18 18:38 - Medications Medications: Current Medications Amlodipine Besylate (Norvasc) 10 mg PO DAILY [facility] Last Admin: 02/01/18 09:07 Dose: 10 mg Apixaban (Eliquis) 5 mg PO BID [facility] PRN Reason: Protocol Last Admin: 02/02/18 08:59 Dose: 5 mg Aspirin (Ecotrin) 81 mg PO DAILY [facility] Last Admin: 02/02/18 09:00 Dose: 81 mg Atorvastatin Calcium (Lipitor) 20 mg PO HS [facility] Last Admin: 02/01/18 21:21 Dose: 20 mg Dextrose (Dextrose 50% Inj) 50 ml IVP PRN PRN PRN Reason: If BS < 50 & pt. unresponsive. Docusate Sodium (Colace) 100 mg PO BID [facility] Last Admin: 02/02/18 08:59 Dose: 100 mg Finasteride (Proscar) 5 mg PO DAILY [facility] Last Admin: 02/02/18 09:00 Dose: 5 mg Glipizide (Glucotrol Xl) 5 mg PO ACB [facility] Last Admin: 02/02/18 07:28 Dose: 5 mg Insulin Detemir (Levemir) 15 units SC HS [facility] Lactulose (Enulose) 20 gm PO HS PRN PRN Reason: Constipation Last Admin: 01/29/18 21:14 Dose: 20 gm Metformin HCl (Glucophage) 500 mg PO BID [facility] Last Admin: 02/02/18 08:59 Dose: 500 mg Mupirocin (Bactroban Cream) 1 applic TOP 0600,1800 [facility] Nystatin (Nystop Topical Powder) 1 applic TOP Q8 [facility] Last Admin: 02/02/18 06:50 Dose: 1 applic Tamsulosin HCl (Flomax) 0.4 mg PO [facility] Last Admin: 02/01/18 21:21 Dose: 0.4 mg Results - Vital Signs Recent Vital Signs: Last Vital Signs Temp 97.6 F 02/02/18 08:35 Pulse 64 02/02/18 08:35 Resp 19 02/02/18 08:35 BP 119/59 L 02/02/18 08:35 Pulse Ox 98 02/02/18 08:35 - Labs Result Diagrams: 01/29/18 05:40 01/29/18 05:40 Labs: Laboratory Results - last 24 hr 02/01/18 02/01/18 02/01/18 11:05 15:57 21:10 POC Glucose (mg/dL) 163 H 154 H 131 H 02/02/18 06:46 POC Glucose (mg/dL) 69
--- NOTE | 2018-02-02 17:35 | CP.PCM.PN ---
Subjective - Date & Time of Evaluation Date of Evaluation: 02/02/18 Time of Evaluation: 17:33 - Subjective Subjective: Patient seen in the room still with right arm rash with small raised, red post Not terribly itchy not anywhere else I would recommend a derm consult will try lidex Objective - Vital Signs/Intake and Output Vital Signs (last 24 hours): Temp Pulse Resp BP Pulse Ox 97.6 F 82 19 117/68 98 02/02/18 08:35 02/02/18 11:30 02/02/18 08:35 02/02/18 11:30 02/02/18 08:57 - Medications Medications: Current Medications Amlodipine Besylate (Norvasc) 10 mg PO DAILY [facility] Last Admin: 02/02/18 11:30 Dose: 10 mg Apixaban (Eliquis) 5 mg PO BID [facility] PRN Reason: Protocol Last Admin: 02/02/18 17:25 Dose: 5 mg Aspirin (Ecotrin) 81 mg PO DAILY [facility] Last Admin: 02/02/18 09:00 Dose: 81 mg Atorvastatin Calcium (Lipitor) 20 mg PO HS [facility] Last Admin: 02/01/18 21:21 Dose: 20 mg Dextrose (Dextrose 50% Inj) 50 ml IVP PRN PRN PRN Reason: If BS < 50 & pt. unresponsive. Docusate Sodium (Colace) 100 mg PO BID [facility] Last Admin: 02/02/18 17:25 Dose: 100 mg Finasteride (Proscar) 5 mg PO DAILY [facility] Last Admin: 02/02/18 09:00 Dose: 5 mg Glipizide (Glucotrol Xl) 5 mg PO ACB [facility] Last Admin: 02/02/18 07:28 Dose: 5 mg Insulin Detemir (Levemir) 15 units SC HS [facility] Lactulose (Enulose) 20 gm PO HS PRN PRN Reason: Constipation Last Admin: 01/29/18 21:14 Dose: 20 gm Metformin HCl (Glucophage) 500 mg PO BID [facility] Last Admin: 02/02/18 17:25 Dose: 500 mg Mupirocin (Bactroban Cream) 1 applic TOP 0600,1800 [facility] Last Admin: 02/02/18 17:24 Dose: 1 applic Nystatin (Nystop Topical Powder) 1 applic TOP Q8 [facility] Last Admin: 02/02/18 13:22 Dose: 1 applic Tamsulosin HCl (Flomax) 0.4 mg PO HS [facility] Last Admin: 02/01/18 21:21 Dose: 0.4 mg - Labs Labs: 01/29/18 05:40 01/29/18 05:40 PT 14.5 Seconds (9.8-13.1) H 01/24/18 05:45 INR 1.3 (0.9-1.2) H 01/24/18 05:45 APTT 35.4 Seconds (25.6-37.1) 01/24/18 05:45
[2018-02-02] MEDS ORDERED: Mupirocin 2% Cream TOP SCH (18:00)
[2018-02-02] MEDS: Insulin Detemir 100 Units/ml Inj SC SCH (21:47)
[2018-02-03] MEDS: GlipiZIDE 5 mg SR Tab PO SCH (07:28)
--- NOTE | 2018-02-03 09:44 | CP.PCM.PN ---
Subjective - Date & Time of Evaluation Date of Evaluation: 02/03/18 Time of Evaluation: 09:43 - Subjective Subjective: doign werll, remains as assessed. call about rash to rfa. red, scaly, nonpruritic/painful. no d/c states has been rpesent since admission Objective - Vital Signs/Intake and Output Vital Signs (last 24 hours): Temp Pulse Resp BP Pulse Ox 98.3 F 74 21 121/68 97 02/03/18 08:49 02/03/18 08:49 02/03/18 08:49 02/03/18 08:49 02/03/18 08:49 - Medications Medications: Current Medications Amlodipine Besylate (Norvasc) 10 mg PO DAILY [facility] Last Admin: 02/03/18 08:14 Dose: 10 mg Apixaban (Eliquis) 5 mg PO BID [facility] PRN Reason: Protocol Last Admin: 02/03/18 08:13 Dose: 5 mg Aspirin (Ecotrin) 81 mg PO DAILY [facility] Last Admin: 02/03/18 08:14 Dose: 81 mg Atorvastatin Calcium (Lipitor) 20 mg PO HS [facility] Last Admin: 02/02/18 21:46 Dose: 20 mg Dextrose (Dextrose 50% Inj) 50 ml IVP PRN PRN PRN Reason: If BS < 50 & pt. unresponsive. Docusate Sodium (Colace) 100 mg PO BID [facility] Last Admin: 02/03/18 08:13 Dose: 100 mg Finasteride (Proscar) 5 mg PO DAILY [facility] Last Admin: 02/03/18 08:13 Dose: 5 mg Fluocinonide (Lidex 0.05% Cream) 1 applic TOP BID [facility] Glipizide (Glucotrol Xl) 5 mg PO ACB [facility] Last Admin: 02/03/18 07:28 Dose: 5 mg Insulin Detemir (Levemir) 15 units SC HS [facility] Last Admin: 02/02/18 21:47 Dose: 15 units Lactulose (Enulose) 20 gm PO HS PRN PRN Reason: Constipation Last Admin: 01/29/18 21:14 Dose: 20 gm Metformin HCl (Glucophage) 500 mg PO BID [facility] Last Admin: 02/03/18 08:14 Dose: 500 mg Nystatin (Nystop Topical Powder) 1 applic TOP Q8 [facility] Last Admin: 02/03/18 05:27 Dose: 1 applic Tamsulosin HCl (Flomax) 0.4 mg PO HS [facility] Last Admin: 02/02/18 21:46 Dose: 0.4 mg - Labs Labs: 01/29/18 05:40 01/29/18 05:40 PT 14.5 Seconds (9.8-13.1) H 01/24/18 05:45 INR 1.3 (0.9-1.2) H 01/24/18 05:45 APTT 35.4 Seconds (25.6-37.1) 01/24/18 05:45 - Constitutional Appears: Well, Non-toxic, No Acute Distress - Head Exam Head Exam: ATRAUMATIC, NORMAL INSPECTION, NORMOCEPHALIC - Eye Exam Eye Exam: EOMI, Normal appearance, PERRL Pupil Exam: NORMAL ACCOMODATION, PERRL - ENT Exam ENT Exam: Mucous Membranes Moist, Normal Exam - Neck Exam Neck Exam: Full ROM, Normal Inspection. absent: Lymphadenopathy - Respiratory Exam Respiratory Exam: Clear to Ausculation Bilateral, NORMAL BREATHING PATTERN - Cardiovascular Exam Cardiovascular Exam: REGULAR RHYTHM, RRR, +S1, +S2. absent: Murmur - GI/Abdominal Exam GI & Abdominal Exam: Soft, Normal Bowel Sounds. absent: Tenderness - Extremities Exam Extremities Exam: Full ROM, Normal Capillary Refill, Normal Inspection. absent : Joint Swelling, Pedal Edema - Back Exam Back Exam: NORMAL INSPECTION - Neurological Exam Neurological Exam: Alert, Awake, CN II-XII Intact, Normal Gait, Oriented x3 - Psychiatric Exam Psychiatric exam: Normal Affect, Normal Mood - Skin Skin Exam: Dry, Intact, Normal Color, Warm Assessment and Plan (1) CVA (cerebral vascular accident) Status: Acute (2) DVT prophylaxis Status: Acute - Assessment and Plan (Free Text) Assessment: (1) CVA (cerebral vascular accident) Assessment and Plan: eliquis cardio/neuro pt/ot physiatry Status: Acute (2) DVT prophylaxis Assessment and Plan: scd nad ae hose ady Status: Acute [id number] levemir, diet control, riss, fsbg dietary teaching for izabela [id number] reeval, eliquis 5-red rash-bactroban, will reeval in 2 days, ?? need for antifungal
[2018-02-03] MEDS: Insulin Detemir 100 Units/ml Inj SC SCH (21:15)
[2018-02-04] MEDS: GlipiZIDE 5 mg SR Tab PO SCH (06:45)
[2018-02-04] MEDS: Insulin Detemir 100 Units/ml Inj SC SCH (21:19)
[2018-02-05] MEDS: GlipiZIDE 5 mg SR Tab PO SCH (06:40)
--- NOTE | 2018-02-05 07:27 | CP.PCM.PN ---
Subjective - Date & Time of Evaluation Date of Evaluation: 02/05/18 Time of Evaluation: 07:27 - Subjective Subjective: pt doing well. no f/c, n/v/d. left side movements about the same. for dc to izabela . Objective - Vital Signs/Intake and Output Vital Signs (last 24 hours): Temp Pulse Resp BP Pulse Ox 97.8 F 70 20 133/73 98 02/04/18 21:46 02/04/18 21:46 02/04/18 21:46 02/04/18 21:46 02/04/18 21:46 - Medications Medications: Current Medications Amlodipine Besylate (Norvasc) 10 mg PO DAILY [facility] Last Admin: 02/04/18 08:48 Dose: 10 mg Apixaban (Eliquis) 5 mg PO BID [facility] PRN Reason: Protocol Last Admin: 02/04/18 17:39 Dose: 5 mg Aspirin (Ecotrin) 81 mg PO DAILY [facility] Last Admin: 02/04/18 08:48 Dose: 81 mg Atorvastatin Calcium (Lipitor) 20 mg PO HS [facility] Last Admin: 02/04/18 21:18 Dose: 20 mg Dextrose (Dextrose 50% Inj) 50 ml IVP PRN PRN PRN Reason: If BS < 50 & pt. unresponsive. Docusate Sodium (Colace) 100 mg PO BID [facility] Last Admin: 02/04/18 17:39 Dose: 100 mg Finasteride (Proscar) 5 mg PO DAILY [facility] Last Admin: 02/04/18 08:47 Dose: 5 mg Fluocinonide (Lidex 0.05% Cream) 1 applic TOP BID [facility] Last Admin: 02/04/18 17:40 Dose: 1 applic Glipizide (Glucotrol Xl) 5 mg PO ACB [facility] Last Admin: 02/05/18 06:40 Dose: 5 mg Insulin Detemir (Levemir) 15 units SC HS [facility] Last Admin: 02/04/18 21:19 Dose: 15 units Lactulose (Enulose) 20 gm PO HS PRN PRN Reason: Constipation Last Admin: 01/29/18 21:14 Dose: 20 gm Metformin HCl (Glucophage) 500 mg PO BID [facility] Last Admin: 02/04/18 17:39 Dose: 500 mg Nystatin (Nystop Topical Powder) 1 applic TOP Q8 [facility] Last Admin: 02/05/18 05:35 Dose: 1 applic Tamsulosin HCl (Flomax) 0.4 mg PO HS [facility] Last Admin: 02/04/18 21:18 Dose: 0.4 mg - Labs Labs: 01/29/18 05:40 01/29/18 05:40 PT 14.5 Seconds (9.8-13.1) H 01/24/18 05:45 INR 1.3 (0.9-1.2) H 01/24/18 05:45 APTT 35.4 Seconds (25.6-37.1) 01/24/18 05:45 - Constitutional Appears: Well, Non-toxic, No Acute Distress - Head Exam Head Exam: ATRAUMATIC, NORMAL INSPECTION, NORMOCEPHALIC - Eye Exam Eye Exam: EOMI, Normal appearance, PERRL Pupil Exam: NORMAL ACCOMODATION, PERRL - ENT Exam ENT Exam: Mucous Membranes Moist, Normal Exam - Neck Exam Neck Exam: Full ROM, Normal Inspection. absent: Lymphadenopathy - Respiratory Exam Respiratory Exam: Clear to Ausculation Bilateral, NORMAL BREATHING PATTERN - Cardiovascular Exam Cardiovascular Exam: REGULAR RHYTHM, RRR, +S1, +S2. absent: Murmur - GI/Abdominal Exam GI & Abdominal Exam: Soft, Normal Bowel Sounds. absent: Tenderness - Extremities Exam Extremities Exam: Full ROM, Normal Capillary Refill, Normal Inspection. absent : Joint Swelling, Pedal Edema - Back Exam Back Exam: NORMAL INSPECTION - Neurological Exam Neurological Exam: Alert, Awake, CN II-XII Intact, Normal Gait, Oriented x3 - Psychiatric Exam Psychiatric exam: Normal Affect, Normal Mood - Skin Skin Exam: Dry, Intact, Normal Color, Warm Assessment and Plan (1) CVA (cerebral vascular accident) Status: Acute (2) DVT prophylaxis Status: Acute - Assessment and Plan (Free Text) Assessment: (1) CVA (cerebral vascular accident) Assessment and Plan: eliquis cardio/neuro pt/ot physiatry Status: Acute (2) DVT prophylaxis Assessment and Plan: scd nad ae hose eliquis Status: Acute [id number] levemir, diet control, riss, fsbg dietary teaching for izabela [id number], eliquis 5-red rash-bactroban, will reeval in 2 days, ?? need for antifungal
--- NOTE | 2018-02-05 18:43 | CP.PCM.PN ---
Subjective - Date & Time of Evaluation Date of Evaluation: 02/03/18 Time of Evaluation: 13:30 - Subjective Subjective: no acute complaints at present Objective - Vital Signs/Intake and Output Vital Signs (last 24 hours): Temp Pulse Resp BP Pulse Ox 96.6 F L 76 20 129/61 100 02/05/18 08:09 02/05/18 16:40 02/05/18 08:09 02/05/18 08:45 02/05/18 08:09 - Medications Medications: Current Medications Amlodipine Besylate (Norvasc) 10 mg PO DAILY [facility] Last Admin: 02/05/18 08:45 Dose: 10 mg Apixaban (Eliquis) 5 mg PO BID [facility] PRN Reason: Protocol Last Admin: 02/05/18 17:10 Dose: 5 mg Aspirin (Ecotrin) 81 mg PO DAILY [facility] Last Admin: 02/05/18 08:45 Dose: 81 mg Atorvastatin Calcium (Lipitor) 20 mg PO HS [facility] Last Admin: 02/04/18 21:18 Dose: 20 mg Dextrose (Dextrose 50% Inj) 50 ml IVP PRN PRN PRN Reason: If BS < 50 & pt. unresponsive. Docusate Sodium (Colace) 100 mg PO BID [facility] Last Admin: 02/05/18 17:09 Dose: 100 mg Finasteride (Proscar) 5 mg PO DAILY [facility] Last Admin: 02/05/18 08:45 Dose: 5 mg Fluocinonide (Lidex 0.05% Cream) 1 applic TOP BID [facility] Last Admin: 02/05/18 17:10 Dose: 1 applic Glipizide (Glucotrol Xl) 5 mg PO ACB [facility] Last Admin: 02/05/18 06:40 Dose: 5 mg Insulin Detemir (Levemir) 15 units SC HS [facility] Last Admin: 02/04/18 21:19 Dose: 15 units Lactulose (Enulose) 20 gm PO HS PRN PRN Reason: Constipation Last Admin: 01/29/18 21:14 Dose: 20 gm Metformin HCl (Glucophage) 500 mg PO BID [facility] Last Admin: 02/05/18 17:09 Dose: 500 mg Nystatin (Nystop Topical Powder) 1 applic TOP Q8 [facility] Last Admin: 02/05/18 13:12 Dose: 1 applic Tamsulosin HCl (Flomax) 0.4 mg PO HS [facility] Last Admin: 02/04/18 21:18 Dose: 0.4 mg - Labs Labs: 01/29/18 05:40 01/29/18 05:40 PT 14.5 Seconds (9.8-13.1) H 01/24/18 05:45 INR 1.3 (0.9-1.2) H 01/24/18 05:45 APTT 35.4 Seconds (25.6-37.1) 01/24/18 05:45 - Constitutional Appears: Well - Head Exam Head Exam: ATRAUMATIC, NORMAL INSPECTION, NORMOCEPHALIC - Eye Exam Eye Exam: EOMI, Normal appearance, PERRL Pupil Exam: NORMAL ACCOMODATION, PERRL - ENT Exam ENT Exam: Mucous Membranes Moist, Normal Exam - Neck Exam Neck Exam: Full ROM, Normal Inspection. absent: Lymphadenopathy - Respiratory Exam Respiratory Exam: Clear to Ausculation Bilateral, NORMAL BREATHING PATTERN - Cardiovascular Exam Cardiovascular Exam: REGULAR RHYTHM, +S1, +S2. absent: Murmur - GI/Abdominal Exam GI & Abdominal Exam: Soft, Normal Bowel Sounds. absent: Tenderness - Rectal Exam Rectal Exam: NORMAL INSPECTION - Exam External exam: NORMAL EXTERNAL EXAM - Extremities Exam Extremities Exam: Full ROM, Normal Capillary Refill, Normal Inspection. absent : Joint Swelling, Pedal Edema - Back Exam Back Exam: NORMAL INSPECTION - Neurological Exam Neurological Exam: Alert, Awake Neuro motor strength exam: Left Upper Extremity: 3, Right Upper Extremity: 4, Left Lower Extremity: 3, Right Lower Extremity: 4 - Psychiatric Exam Psychiatric exam: Normal Affect, Normal Mood - Skin Skin Exam: Dry, Normal Color Assessment and Plan (1) CVA (cerebral vascular accident) Assessment & Plan: plan for Pt, OT rec and speech therapy Status: Acute (2) DVT prophylaxis Status: Acute (3) Dehydration Status: Acute (4) Fall Status: Acute (5) Weakness of left arm Status: Acute (6) Weakness of left leg Status: Acute
--- NOTE | 2018-02-05 18:45 | CP.PCM.PN ---
Subjective - Date & Time of Evaluation Date of Evaluation: 02/05/18 Time of Evaluation: 15:00 - Subjective Subjective: no complaints of any pain Objective - Vital Signs/Intake and Output Vital Signs (last 24 hours): Temp Pulse Resp BP Pulse Ox 96.6 F L 76 20 129/61 100 02/05/18 08:09 02/05/18 16:40 02/05/18 08:09 02/05/18 08:45 02/05/18 08:09 - Medications Medications: Current Medications Amlodipine Besylate (Norvasc) 10 mg PO DAILY [facility] Last Admin: 02/05/18 08:45 Dose: 10 mg Apixaban (Eliquis) 5 mg PO BID [facility] PRN Reason: Protocol Last Admin: 02/05/18 17:10 Dose: 5 mg Aspirin (Ecotrin) 81 mg PO DAILY [facility] Last Admin: 02/05/18 08:45 Dose: 81 mg Atorvastatin Calcium (Lipitor) 20 mg PO HS [facility] Last Admin: 02/04/18 21:18 Dose: 20 mg Dextrose (Dextrose 50% Inj) 50 ml IVP PRN PRN PRN Reason: If BS < 50 & pt. unresponsive. Docusate Sodium (Colace) 100 mg PO BID [facility] Last Admin: 02/05/18 17:09 Dose: 100 mg Finasteride (Proscar) 5 mg PO DAILY [facility] Last Admin: 02/05/18 08:45 Dose: 5 mg Fluocinonide (Lidex 0.05% Cream) 1 applic TOP BID [facility] Last Admin: 02/05/18 17:10 Dose: 1 applic Glipizide (Glucotrol Xl) 5 mg PO ACB [facility] Last Admin: 02/05/18 06:40 Dose: 5 mg Insulin Detemir (Levemir) 15 units SC HS [facility] Last Admin: 02/04/18 21:19 Dose: 15 units Lactulose (Enulose) 20 gm PO HS PRN PRN Reason: Constipation Last Admin: 01/29/18 21:14 Dose: 20 gm Metformin HCl (Glucophage) 500 mg PO BID [facility] Last Admin: 02/05/18 17:09 Dose: 500 mg Nystatin (Nystop Topical Powder) 1 applic TOP Q8 [facility] Last Admin: 02/05/18 13:12 Dose: 1 applic Tamsulosin HCl (Flomax) 0.4 mg PO HS [facility] Last Admin: 02/04/18 21:18 Dose: 0.4 mg - Labs Labs: 01/29/18 05:40 01/29/18 05:40 PT 14.5 Seconds (9.8-13.1) H 01/24/18 05:45 INR 1.3 (0.9-1.2) H 01/24/18 05:45 APTT 35.4 Seconds (25.6-37.1) 01/24/18 05:45 - Head Exam Head Exam: ATRAUMATIC, NORMAL INSPECTION, NORMOCEPHALIC - Eye Exam Eye Exam: EOMI, Normal appearance, PERRL - ENT Exam ENT Exam: Mucous Membranes Moist, Normal Exam - Neck Exam Neck Exam: Full ROM, Normal Inspection. absent: Lymphadenopathy - Respiratory Exam Respiratory Exam: Clear to Ausculation Bilateral, NORMAL BREATHING PATTERN - Cardiovascular Exam Cardiovascular Exam: REGULAR RHYTHM, +S1, +S2. absent: Murmur - GI/Abdominal Exam GI & Abdominal Exam: Soft, Normal Bowel Sounds. absent: Tenderness - Rectal Exam Rectal Exam: NORMAL INSPECTION - Exam External exam: NORMAL EXTERNAL EXAM - Extremities Exam Extremities Exam: Full ROM, Normal Capillary Refill, Normal Inspection - Back Exam Back Exam: NORMAL INSPECTION - Neurological Exam Neurological Exam: Alert, Awake Neuro motor strength exam: Left Upper Extremity: 3, Right Upper Extremity: 4, Left Lower Extremity: 3, Right Lower Extremity: 4 - Psychiatric Exam Psychiatric exam: Normal Affect, Normal Mood - Skin Skin Exam: Normal Color Assessment and Plan (1) CVA (cerebral vascular accident) Assessment & Plan: continue with physical, occupational, rec , speech therapy program range of motion, balance and gait training Status: Acute (2) DVT prophylaxis Status: Acute (3) Dehydration Status: Acute (4) Fall Status: Acute (5) Weakness of left arm Status: Acute (6) Weakness of left leg Status: Acute
[2018-02-05] MEDS: Insulin Detemir 100 Units/ml Inj SC SCH (21:19)
[2018-02-06] MEDS: GlipiZIDE 5 mg SR Tab PO SCH (07:14)
[2018-02-06] MEDS: Insulin Detemir 100 Units/ml Inj SC SCH (21:23)
[2018-02-07] MEDS: GlipiZIDE 5 mg SR Tab PO SCH (07:16)
--- NOTE | 2018-02-07 08:12 | CP.PCM.PN ---
Subjective - Date & Time of Evaluation Date of Evaluation: 02/07/18 Time of Evaluation: 08:10 - Subjective Subjective: pt doing well, still w/ systolic murmur. no f/c, n/v/d rash to rfa improving. for dcto izabela tomorrow.improving function lue Objective - Vital Signs/Intake and Output Vital Signs (last 24 hours): Temp Pulse Resp BP Pulse Ox 97.7 F 61 20 121/60 96 02/07/18 08:05 02/07/18 08:05 02/07/18 08:05 02/07/18 08:05 02/07/18 08:05 - Medications Medications: Current Medications Amlodipine Besylate (Norvasc) 10 mg PO DAILY [facility] Last Admin: 02/06/18 08:34 Dose: 10 mg Apixaban (Eliquis) 5 mg PO BID [facility] PRN Reason: Protocol Last Admin: 02/06/18 16:11 Dose: 5 mg Aspirin (Ecotrin) 81 mg PO DAILY [facility] Last Admin: 02/06/18 08:33 Dose: 81 mg Atorvastatin Calcium (Lipitor) 20 mg PO HS [facility] Last Admin: 02/06/18 21:22 Dose: 20 mg Dextrose (Dextrose 50% Inj) 50 ml IVP PRN PRN PRN Reason: If BS < 50 & pt. unresponsive. Docusate Sodium (Colace) 100 mg PO BID [facility] Last Admin: 02/06/18 16:10 Dose: 100 mg Finasteride (Proscar) 5 mg PO DAILY [facility] Last Admin: 02/06/18 08:33 Dose: 5 mg Fluocinonide (Lidex 0.05% Cream) 1 applic TOP BID [facility] Last Admin: 02/06/18 16:11 Dose: 1 applic Glipizide (Glucotrol Xl) 5 mg PO ACB [facility] Last Admin: 02/07/18 07:16 Dose: 5 mg Insulin Detemir (Levemir) 15 units SC HS [facility] Last Admin: 02/06/18 21:23 Dose: 15 units Lactulose (Enulose) 20 gm PO HS PRN PRN Reason: Constipation Last Admin: 01/29/18 21:14 Dose: 20 gm Metformin HCl (Glucophage) 500 mg PO BID [facility] Last Admin: 02/06/18 16:11 Dose: 500 mg Nystatin (Nystop Topical Powder) 1 applic TOP Q8 [facility] Last Admin: 02/07/18 05:56 Dose: 1 applic Tamsulosin HCl (Flomax) 0.4 mg PO HS [facility] Last Admin: 02/06/18 21:22 Dose: 0.4 mg - Labs Labs: 01/29/18 05:40 01/29/18 05:40 PT 14.5 Seconds (9.8-13.1) H 01/24/18 05:45 INR 1.3 (0.9-1.2) H 01/24/18 05:45 APTT 35.4 Seconds (25.6-37.1) 01/24/18 05:45 - Constitutional Appears: Well, Non-toxic, No Acute Distress - Head Exam Head Exam: ATRAUMATIC, NORMAL INSPECTION, NORMOCEPHALIC - Eye Exam Eye Exam: EOMI, Normal appearance, PERRL Pupil Exam: NORMAL ACCOMODATION, PERRL - ENT Exam ENT Exam: Mucous Membranes Moist, Normal Exam - Neck Exam Neck Exam: Full ROM, Normal Inspection. absent: Lymphadenopathy - Respiratory Exam Respiratory Exam: Clear to Ausculation Bilateral, NORMAL BREATHING PATTERN - Cardiovascular Exam Cardiovascular Exam: REGULAR RHYTHM, RRR, +S1, +S2, Murmur - GI/Abdominal Exam GI & Abdominal Exam: Soft, Normal Bowel Sounds. absent: Tenderness - Exam Exam: Circumcision, Testicular Vertical Lie - Extremities Exam Extremities Exam: Full ROM, Normal Capillary Refill, Normal Inspection. absent : Joint Swelling, Pedal Edema - Back Exam Back Exam: NORMAL INSPECTION - Neurological Exam Neurological Exam: Alert, Awake, CN II-XII Intact, Normal Gait, Oriented x3 Neuro motor strength exam: Left Upper Extremity: 4, Right Upper Extremity: 5, Left Lower Extremity: 4, Right Lower Extremity: 5 - Psychiatric Exam Psychiatric exam: Normal Affect, Normal Mood - Skin Skin Exam: Dry, Intact, Normal Color, Warm Assessment and Plan (1) CVA (cerebral vascular accident) Status: Acute (2) DVT prophylaxis Status: Acute - Assessment and Plan (Free Text) Assessment: (1) CVA (cerebral vascular accident) Assessment and Plan: eliquis cardio/neuro pt/ot physiatry Status: Acute (2) DVT prophylaxis Assessment and Plan: scd nad ae hose eliquis Status: Acute [id number] levemir, diet control, riss, fsbg dietary teaching for izabela [id number], eliquis 5-red rash-bactroban, will reeval in 2 days, ?? need for antifungal, rash improving for dc tomorrow
--- NOTE | 2018-02-07 12:19 | PSY.TMCNF ---
Nursing - Vital Signs Vital Signs (Last 8 hours): Vital Signs 02/07/18 02/07/18 08:05 08:32 Temperature 97.7 F Pulse Rate 61 61 Respiratory 20 Rate Blood Pressure 121/60 121/60 O2 Sat by Pulse 96 Oximetry Pain: 0 - Precautions: Precautions: Fall Prevention - Medications/Other Issues Comment: Pt at moderate nutritional risk. Goals: 1. Pt to consume 75-100% of meals (met, continue). 2. Blood glucose to be between 70-180 mg/dl (partially met, continue). Follow-up due by 02/13/2018. [ End ] - Consults Comment: Dr. Wilcox - Toileting Toileting: Contact Guard - Bladder Management Bladder Pattern: Normal Voiding Method: Toilet, Urinal - Bowel Management Bowel Pattern: Constipated Bowel Management: Supervision Frequency of Accidents: 0 - Transfers Transfers: Contact Guard - ADL's ADL's: Moderate Assistance - Patient/Family Teaching Comments: N/A - Goals/Time Frame Comments: PER MULTIDISCIPLINARY CARE PLAN GOALS - Provider Provider: LUCIA GUYN RN CRRN Physical Therapy - Bed Mobility Bed Mobility: Contact Guard - Transfers Sit to Stand: Supervision, Verbal Cues, Contact Guard - Ambulation Level of Assistance: Verbal Cues, Contact Guard Distance (ft.): 150 Assistive Devices: N/A - Stair Negotiation Stairs: Level of Assistance: Verbal Cues, Contact Guard Number of Stairs: 12 Handrails: Right - Standing Balance Static Stand: Contact Guard Assist Dynamic Stand: Minimal Assistance - Pain Pain (assessed during therapy session): 0 - Insight/Carryover Insight/Carryover: Good - Patient/Family Education Comment: -adls, transfer, mobility education using adaptive/compensatory strategies, energy conservation. -LUE attention/managment/HEP, ROM/strength exercises. -encouraged to sit up in chair during the day. -rehab/OT goals, plan of care. -safety strategies/considerations. -w/c management/propulsion. -LUE attention/management - Assessment/Plan Assessment: Pt continues to be agreeable to participate in 1:1 and group recreation therapy sessions. Pt requires min A throughout leisure tasks related to memory and word finding. Pt presents with decrease carryover of task rules and decrease initiation throughout all leisure tasks. Pt's mood continues to be flat; however, is stable-positive. - Goals Timeframe: 2 days Goals: -UPPER BODY SELF CARE: CS & verbal cues for pullover shirt and verbal cues. -LOWER BODY DRESSING/BATHING: CG/CS assist and verbal cues with adaptive strategies. -BED MOBILITY: Supervision/DS supine<->sit, roll B sides. -TOILETING: CG/CS assist and verbal cues. -TRANSFERS:<->bed, commode, w/c and other surfaces with Supervision/CS and verbal cues. -LUE STRENGTH: increase to 3+/5 throughout as needed to use as gross assist during adls, transfers and mobility - Provider License Number: [id number] Occupational Therapy - Arousal/Attention/Orientation Patient Orientation: Person, Place, Appropriate to Age, Appropriate to Situation - ADL/IADL Self Feeding: Set-up Help Grooming: Set-up Help Bathing-Upper Extremity: Verbal Cues, Set-up Help, Minimal Assistance Bathing-Lower Extremity: Verbal Cues, Set-up Help, Minimal Assistance Dressing-Upper Extremity: Verbal Cues, Set-up Help, Minimal Assistance Dressing-Lower Extremity: Verbal Cues, Set-up Help, Minimal Assistance Comment: -needs constant review of sarah techniques,attention to LUE - Sitting Balance Static Sitting: Independent with upper extremity support Dynamic Sitting: Reaches across midline, Reaches out of base of support, Reaches within base of support, Requires supervision Comment: unsupported @ edge of bed - Transfers Wheelchair to Bed Transfers: Supervision, Verbal Cues, Set-up Help, Contact Guard Toilet Transfers: Supervision, Verbal Cues, Set-up Help, Contact Guard Comment: shower transfers: CG and verbal cues - Wheelchair Management Level of Assistance: Modified Independent, Supervision Distance (ft.): 200 - Upper Extremity Status Right Upper Extremity Comment: WNL Left Upper Extremity Comment: PROM is WNLS; AROM limited by impaired strength. Strength as follows: L shoulder flex/abduction 3-/5 ,elbow flex/extension 3/5, forearm supination/pronation 3-/5 . wrist flex/extension 3/5, digit flex/ extension 3+/5, thumb flex/extension 3+/5 - Pain Pain (assessed during therapy session): 0 - Insight/Carryover Insight/Carryover: Good - Patient/Family Education Comment: -adls, transfer, mobility education using adaptive/compensatory strategies, energy conservation. -LUE attention/managment/HEP, ROM/strength exercises. -encouraged to sit up in chair during the day. -rehab/OT goals, plan of care. -safety strategies/considerations. -w/c management/propulsion. -LUE attention/management - Assessment/Plan Assessment: Pt continues to be agreeable to participate in 1:1 and group recreation therapy sessions. Pt requires min A throughout leisure tasks related to memory and word finding. Pt presents with decrease carryover of task rules and decrease initiation throughout all leisure tasks. Pt's mood continues to be flat; however, is stable-positive. - Goals Timeframe: 2 days Goals: -UPPER BODY SELF CARE: CS & verbal cues for pullover shirt and verbal cues. -LOWER BODY DRESSING/BATHING: CG/CS assist and verbal cues with adaptive strategies. -BED MOBILITY: Supervision/DS supine<->sit, roll B sides. -TOILETING: CG/CS assist and verbal cues. -TRANSFERS:<->bed, commode, w/c and other surfaces with Supervision/CS and verbal cues. -LUE STRENGTH: increase to 3+/5 throughout as needed to use as gross assist during adls, transfers and mobility - Provider Therapist: YOLANDA Gil/Sandeep License Number: [id number] Speech Therapy - Consult Information Patient on Program: Yes Medical Diagnosis: cva Treatment Diagnosis: mild cognitive-linguistic deficits - Assessment Memory Impairment: Mild - Plan Assessment: Pt continues to be agreeable to participate in 1:1 and group recreation therapy sessions. Pt requires min A throughout leisure tasks related to memory and word finding. Pt presents with decrease carryover of task rules and decrease initiation throughout all leisure tasks. Pt's mood continues to be flat; however, is stable-positive. Plan: Continue Speech/Language Therapy - Provider Therapist: Graciela Echavarria License Number: [id number] Recreational Therapy - Participation Participation: Participates in Individual and/or Group Sessions - Attendance Attendance: 3-5 times per week - Activities Leisure Activities: Cards and Games - Socialization Level of Socialization: Initiates/interacts freely with care givers and peer - Diversional Time Diversional Time: television - Assessment Assessment/Plan: Pt continues to be agreeable to participate in 1:1 and group recreation therapy sessions. Pt requires min A throughout leisure tasks related to memory and word finding. Pt presents with decrease carryover of task rules and decrease initiation throughout all leisure tasks. Pt's mood continues to be flat; however, is stable-positive. Problems Currently Limiting Participation: decrease leisure awareness level, short-term memory deficits, decrease attention, L side UE and LE weakness Goals and Time Frame: Pt will be encouraged to participate in 1:1 and group recreation therapy sessions 3-5x week to improve attention to task, direction following, recalling facts on demand, and leisure awareness level. - Provider Therapist: Rosa Nugent, GEOCHEMICAL LABORATORY TECHNICIAN #[id number] Nutrition - Current Diet Current Diet/ Supplement/ Feedings: Moderate consistent CHO, heart healthy diet - Appetite Percent Meal Consumed: 75-100% - Comments Comments: N/A - Assessment/Goals/Time Frame Assessment/Goals/Time Frame: Pt at moderate nutritional risk. Goals: 1. Pt to consume 75-100% of meals (met, continue). 2. Blood glucose to be between 70 -180 mg/dl (partially met, continue). Follow-up due by 02/13/2018. [ End ] - Provider Provider: Harika Doll MS, RD Case Management - Psychosocial Assessment Support Systems: [facility] (Nettie) [facility] [phone] Psychological Interventions/Needs: Patient is alert with mild memory deficits. Patient with improved mood and motivation for therapy Discharge Concerns: Patient unable to return home due to poor living conditions (per elvira Sheffield) and minimal support Patient/Family Meeting: CM met with patient and rehab team as well as Nettie with pt's consent Intervention/Goal/Outcome:: 1. PLAN: J[place] in [place] close to friend Monster. 2. Tentative discharge date: 02/08/2018. 3. CM to coordinate transfer with [facility]. 4. continued emotional support. - Discharge Plan Discharge Plan: Subacute care - Provider Provider: Katiuska Buck MSW, IMPORT AND EXPORT CLERK License Number: [id number] Rehabilitation Plan - Treatment Plan Treatment Plan: Physical Therapy, Occupational Therapy, Speech, Dietary, Patient /Family Education - Recommendation Recommendation: Physical Therapy, Occupational Therapy, Speech, Dietary, Patient /Family Education - Discharge Plan Discharge to: Subacute (Dc for Am)
--- NOTE | 2018-02-07 12:31 | CP.PCM.PN ---
Subjective - Date & Time of Evaluation Date of Evaluation: 02/07/18 Time of Evaluation: 10:00 - Subjective Subjective: no acute complaints at present Objective - Vital Signs/Intake and Output Vital Signs (last 24 hours): Temp Pulse Resp BP Pulse Ox 97.7 F 61 20 121/60 96 02/07/18 08:05 02/07/18 08:32 02/07/18 08:05 02/07/18 08:32 02/07/18 08:05 - Medications Medications: Current Medications Amlodipine Besylate (Norvasc) 10 mg PO DAILY [facility] Last Admin: 02/07/18 08:32 Dose: 10 mg Apixaban (Eliquis) 5 mg PO BID [facility] PRN Reason: Protocol Last Admin: 02/07/18 08:32 Dose: 5 mg Aspirin (Ecotrin) 81 mg PO DAILY [facility] Last Admin: 02/07/18 08:31 Dose: 81 mg Atorvastatin Calcium (Lipitor) 20 mg PO HS [facility] Last Admin: 02/06/18 21:22 Dose: 20 mg Dextrose (Dextrose 50% Inj) 50 ml IVP PRN PRN PRN Reason: If BS < 50 & pt. unresponsive. Docusate Sodium (Colace) 100 mg PO BID [facility] Last Admin: 02/07/18 08:31 Dose: 100 mg Finasteride (Proscar) 5 mg PO DAILY [facility] Last Admin: 02/07/18 08:32 Dose: 5 mg Fluocinonide (Lidex 0.05% Cream) 1 applic TOP BID [facility] Last Admin: 02/07/18 08:35 Dose: 1 applic Glipizide (Glucotrol Xl) 5 mg PO ACB [facility] Last Admin: 02/07/18 07:16 Dose: 5 mg Insulin Detemir (Levemir) 15 units SC HS [facility] Last Admin: 02/06/18 21:23 Dose: 15 units Lactulose (Enulose) 20 gm PO HS PRN PRN Reason: Constipation Last Admin: 01/29/18 21:14 Dose: 20 gm Metformin HCl (Glucophage) 500 mg PO BID [facility] Last Admin: 02/07/18 08:32 Dose: 500 mg Nystatin (Nystop Topical Powder) 1 applic TOP Q8 [facility] Last Admin: 02/07/18 05:56 Dose: 1 applic Tamsulosin HCl (Flomax) 0.4 mg PO HS [facility] Last Admin: 02/06/18 21:22 Dose: 0.4 mg - Labs Labs: 01/29/18 05:40 01/29/18 05:40 PT 14.5 Seconds (9.8-13.1) H 01/24/18 05:45 INR 1.3 (0.9-1.2) H 01/24/18 05:45 APTT 35.4 Seconds (25.6-37.1) 01/24/18 05:45 - Head Exam Head Exam: ATRAUMATIC, NORMAL INSPECTION, NORMOCEPHALIC - Eye Exam Eye Exam: EOMI, Normal appearance, PERRL Pupil Exam: NORMAL ACCOMODATION, PERRL - ENT Exam ENT Exam: Mucous Membranes Moist, Normal Exam - Neck Exam Neck Exam: Full ROM, Normal Inspection. absent: Lymphadenopathy - Respiratory Exam Respiratory Exam: Clear to Ausculation Bilateral, NORMAL BREATHING PATTERN - Cardiovascular Exam Cardiovascular Exam: REGULAR RHYTHM, +S1, +S2. absent: Murmur - GI/Abdominal Exam GI & Abdominal Exam: Soft, Normal Bowel Sounds. absent: Tenderness - Back Exam Back Exam: NORMAL INSPECTION - Neurological Exam Neuro motor strength exam: Left Upper Extremity: 3, Right Upper Extremity: 4, Left Lower Extremity: 3, Right Lower Extremity: 4 - Psychiatric Exam Psychiatric exam: Normal Affect, Normal Mood - Skin Skin Exam: Dry Assessment and Plan (1) CVA (cerebral vascular accident) Assessment & Plan: plan for0 pt, ot, rec and speech therapy For Dc to subacute Status: Acute (2) DVT prophylaxis Status: Acute (3) Dehydration Status: Acute (4) Fall Status: Acute (5) Weakness of left arm Status: Acute (6) Weakness of left leg Status: Acute
--- NOTE | 2018-02-07 12:42 | CP.PCM.PN ---
Subjective - Date & Time of Evaluation Date of Evaluation: 02/06/18 Time of Evaluation: 15:00 - Subjective Subjective: no acute complaints at present Objective - Vital Signs/Intake and Output Vital Signs (last 24 hours): Temp Pulse Resp BP Pulse Ox 97.7 F 61 20 121/60 96 02/07/18 08:05 02/07/18 08:32 02/07/18 08:05 02/07/18 08:32 02/07/18 08:05 - Medications Medications: Current Medications Amlodipine Besylate (Norvasc) 10 mg PO DAILY [facility] Last Admin: 02/07/18 08:32 Dose: 10 mg Apixaban (Eliquis) 5 mg PO BID [facility] PRN Reason: Protocol Last Admin: 02/07/18 08:32 Dose: 5 mg Aspirin (Ecotrin) 81 mg PO DAILY [facility] Last Admin: 02/07/18 08:31 Dose: 81 mg Atorvastatin Calcium (Lipitor) 20 mg PO HS [facility] Last Admin: 02/06/18 21:22 Dose: 20 mg Dextrose (Dextrose 50% Inj) 50 ml IVP PRN PRN PRN Reason: If BS < 50 & pt. unresponsive. Docusate Sodium (Colace) 100 mg PO BID [facility] Last Admin: 02/07/18 08:31 Dose: 100 mg Finasteride (Proscar) 5 mg PO DAILY [facility] Last Admin: 02/07/18 08:32 Dose: 5 mg Fluocinonide (Lidex 0.05% Cream) 1 applic TOP BID [facility] Last Admin: 02/07/18 08:35 Dose: 1 applic Glipizide (Glucotrol Xl) 5 mg PO ACB [facility] Last Admin: 02/07/18 07:16 Dose: 5 mg Insulin Detemir (Levemir) 15 units SC HS [facility] Last Admin: 02/06/18 21:23 Dose: 15 units Lactulose (Enulose) 20 gm PO HS PRN PRN Reason: Constipation Last Admin: 01/29/18 21:14 Dose: 20 gm Metformin HCl (Glucophage) 500 mg PO BID [facility] Last Admin: 02/07/18 08:32 Dose: 500 mg Nystatin (Nystop Topical Powder) 1 applic TOP Q8 [facility] Last Admin: 02/07/18 05:56 Dose: 1 applic Tamsulosin HCl (Flomax) 0.4 mg PO HS [facility] Last Admin: 02/06/18 21:22 Dose: 0.4 mg - Labs Labs: 01/29/18 05:40 01/29/18 05:40 PT 14.5 Seconds (9.8-13.1) H 01/24/18 05:45 INR 1.3 (0.9-1.2) H 01/24/18 05:45 APTT 35.4 Seconds (25.6-37.1) 01/24/18 05:45 - Head Exam Head Exam: ATRAUMATIC, NORMAL INSPECTION, NORMOCEPHALIC - Eye Exam Eye Exam: EOMI, Normal appearance, PERRL Pupil Exam: NORMAL ACCOMODATION, PERRL - ENT Exam ENT Exam: Mucous Membranes Moist, Normal Exam - Neck Exam Neck Exam: Full ROM, Normal Inspection. absent: Lymphadenopathy - Respiratory Exam Respiratory Exam: Clear to Ausculation Bilateral, NORMAL BREATHING PATTERN - Cardiovascular Exam Cardiovascular Exam: REGULAR RHYTHM, +S1, +S2. absent: Murmur - GI/Abdominal Exam GI & Abdominal Exam: Soft, Normal Bowel Sounds. absent: Tenderness - Rectal Exam Rectal Exam: NORMAL INSPECTION - Exam External exam: NORMAL EXTERNAL EXAM - Extremities Exam Extremities Exam: Full ROM, Normal Capillary Refill, Normal Inspection - Back Exam Back Exam: NORMAL INSPECTION - Neurological Exam Neurological Exam: Alert, Awake Neuro motor strength exam: Left Upper Extremity: 3, Right Upper Extremity: 4, Left Lower Extremity: 3, Right Lower Extremity: 4 - Psychiatric Exam Psychiatric exam: Normal Affect, Normal Mood - Skin Skin Exam: Dry, Normal Color Assessment and Plan (1) CVA (cerebral vascular accident) Assessment & Plan: plan for physical, occupational, rec and speech therapy plan for subacute rehab Status: Acute (2) DVT prophylaxis Status: Acute (3) Dehydration Status: Acute (4) Fall Status: Acute (5) Weakness of left arm Status: Acute (6) Weakness of left leg Status: Acute
[2018-02-07] MEDS: Insulin Detemir 100 Units/ml Inj SC SCH (21:26)
[2018-02-08] MEDS: GlipiZIDE 5 mg SR Tab PO SCH (06:50)
[2018-02-08] MEDS: Insulin Detemir 100 Units/ml Inj SC SCH (21:21)
[2018-02-09] MEDS: GlipiZIDE 5 mg SR Tab PO SCH (06:59)
--- NOTE | 2018-02-09 07:59 | CP.PCM.CON ---
History of Present Illness - History of Present Illness History of Present Illness: Pt seen for supportive therapy 7:20-7:38. Pt discussed plan for move to [place], discussed knowledge/acceptance of not returning home. Pt spoke of comfort with plan for [place] building. He denied distress/discomfort. pt reported improved mood with healing, and physical gains made. Depression denied and affect brighter. Pt adjusting increasingly well. Past Patient History - Past Medical History & Family History Past Medical History?: Yes - Past Social History Smoking Status: Never Smoked - CARDIAC Hx Hypercholesterolemia: Yes Hx Hypertension: Yes - PULMONARY Hx Respiratory Disorders: No - NEUROLOGICAL Hx Neurological Disorder: Yes HX Cerebrovascular Accident: Yes - HEENT Hx HEENT Problems: Yes Hx Cataracts: Yes Hx Glaucoma: Yes Other/Comment: wears eyeglasses for reading. - RENAL Other/Comment: acute kidney injury, hypernatremia - ENDOCRINE/METABOLIC Hx Diabetes Mellitus Type 2: Yes - HEMATOLOGICAL/ONCOLOGICAL Hx Blood Disorders: No Hx AIDS: No Hx Human Immunodeficiency Virus (HIV): No - INTEGUMENTARY Hx Dermatological Problems: No - MUSCULOSKELETAL/RHEUMATOLOGICAL Hx Falls: Yes (2x before admission) - GASTROINTESTINAL Hx Gastrointestinal Disorders: Yes Hx Constipation: Yes - GENITOURINARY/GYNECOLOGICAL Hx Genitourinary Disorders: Yes Hx Prostate Problems: Yes - PSYCHIATRIC Hx Substance Use: No - SURGICAL HISTORY Hx Surgeries: No - ANESTHESIA Hx Anesthesia: No Hx Anesthesia Reactions: No Hx Malignant Hyperthermia: No Has any member of the family had a problem w/ anesthesia?: No Meds Home Medications: Home Medication List Medication Instructions Recorded Confirmed Type Docusate [Colace] 100 mg PO BID cap 02/08/18 Rx Insulin Detemir [Levemir] 15 units SC HS vial 02/08/18 Rx Lactulose [Enulose] 20 gm PO HS PRN udc 02/08/18 Rx Allergies/Adverse Reactions: Allergies Allergy/AdvReac Type Severity Reaction Status Date / Time No Known Allergies Allergy Verified 01/16/18 18:38 - Medications Medications: Current Medications Amlodipine Besylate (Norvasc) 10 mg PO DAILY [facility] Last Admin: 02/08/18 08:10 Dose: 10 mg Apixaban (Eliquis) 5 mg PO BID [facility] PRN Reason: Protocol Last Admin: 02/08/18 17:01 Dose: 5 mg Aspirin (Ecotrin) 81 mg PO DAILY [facility] Last Admin: 02/08/18 08:11 Dose: 81 mg Atorvastatin Calcium (Lipitor) 20 mg PO HS [facility] Last Admin: 02/08/18 21:20 Dose: 20 mg Dextrose (Dextrose 50% Inj) 50 ml IVP PRN PRN PRN Reason: If BS < 50 & pt. unresponsive. Docusate Sodium (Colace) 100 mg PO BID [facility] Last Admin: 02/08/18 17:01 Dose: 100 mg Finasteride (Proscar) 5 mg PO DAILY [facility] Last Admin: 02/08/18 08:11 Dose: 5 mg Fluocinonide (Lidex 0.05% Cream) 1 applic TOP BID [facility] Last Admin: 02/08/18 17:02 Dose: 1 applic Glipizide (Glucotrol Xl) 5 mg PO ACB [facility] Last Admin: 02/09/18 06:59 Dose: 5 mg Insulin Detemir (Levemir) 15 units SC HS [facility] Last Admin: 02/08/18 21:21 Dose: 15 units Lactulose (Enulose) 20 gm PO HS PRN PRN Reason: Constipation Last Admin: 01/29/18 21:14 Dose: 20 gm Metformin HCl (Glucophage) 500 mg PO BID [facility] Last Admin: 02/08/18 17:01 Dose: 500 mg Nystatin (Nystop Topical Powder) 1 applic TOP Q8 [facility] Last Admin: 02/09/18 06:59 Dose: 1 applic Tamsulosin HCl (Flomax) 0.4 mg PO HS [facility] Last Admin: 02/08/18 21:20 Dose: 0.4 mg Results - Vital Signs Recent Vital Signs: Last Vital Signs Temp 97.9 F 02/08/18 22:00 Pulse 60 02/08/18 22:00 Resp 20 02/08/18 22:00 BP 115/59 L 02/08/18 22:00 Pulse Ox 98 02/08/18 22:00 - Labs Result Diagrams: 01/29/18 05:40 01/29/18 05:40 Labs: Laboratory Results - last 24 hr 02/08/18 02/08/18 02/08/18 11:50 16:32 21:17 POC Glucose (mg/dL) 240 H 187 H 213 H 02/09/18 05:33 POC Glucose (mg/dL) 134 H
--- NOTE | 2018-02-09 11:34 | CP.PCM.PN ---
Subjective - Date & Time of Evaluation Date of Evaluation: 02/09/18 Time of Evaluation: 11:33 - Subjective Subjective: pt doing well. nof /c, n/v/d. rom of lue/lle as assessed. for dc when paperwork for medicaid is completed Objective - Vital Signs/Intake and Output Vital Signs (last 24 hours): Temp Pulse Resp BP Pulse Ox 97.7 F 78 20 130/70 98 02/09/18 08:20 02/09/18 08:20 02/09/18 08:20 02/09/18 08:20 02/09/18 08:20 - Medications Medications: Current Medications Amlodipine Besylate (Norvasc) 10 mg PO DAILY [facility] Last Admin: 02/09/18 08:14 Dose: 10 mg Apixaban (Eliquis) 5 mg PO BID [facility] PRN Reason: Protocol Last Admin: 02/09/18 08:13 Dose: 5 mg Aspirin (Ecotrin) 81 mg PO DAILY [facility] Last Admin: 02/09/18 08:13 Dose: 81 mg Atorvastatin Calcium (Lipitor) 20 mg PO HS [facility] Last Admin: 02/08/18 21:20 Dose: 20 mg Dextrose (Dextrose 50% Inj) 50 ml IVP PRN PRN PRN Reason: If BS < 50 & pt. unresponsive. Docusate Sodium (Colace) 100 mg PO BID [facility] Last Admin: 02/09/18 08:13 Dose: 100 mg Finasteride (Proscar) 5 mg PO DAILY [facility] Last Admin: 02/09/18 08:15 Dose: 5 mg Fluocinonide (Lidex 0.05% Cream) 1 applic TOP BID [facility] Last Admin: 02/09/18 08:14 Dose: 1 applic Glipizide (Glucotrol Xl) 5 mg PO ACB [facility] Last Admin: 02/09/18 06:59 Dose: 5 mg Insulin Detemir (Levemir) 15 units SC HS [facility] Last Admin: 02/08/18 21:21 Dose: 15 units Lactulose (Enulose) 20 gm PO HS PRN PRN Reason: Constipation Last Admin: 01/29/18 21:14 Dose: 20 gm Metformin HCl (Glucophage) 500 mg PO BID [facility] Last Admin: 02/09/18 08:14 Dose: 500 mg Nystatin (Nystop Topical Powder) 1 applic TOP Q8 [facility] Last Admin: 02/09/18 06:59 Dose: 1 applic Tamsulosin HCl (Flomax) 0.4 mg PO HS [facility] Last Admin: 02/08/18 21:20 Dose: 0.4 mg - Labs Labs: 01/29/18 05:40 01/29/18 05:40 PT 14.5 Seconds (9.8-13.1) H 01/24/18 05:45 INR 1.3 (0.9-1.2) H 01/24/18 05:45 APTT 35.4 Seconds (25.6-37.1) 01/24/18 05:45 - Constitutional Appears: Well, Non-toxic, No Acute Distress - Head Exam Head Exam: ATRAUMATIC, NORMAL INSPECTION, NORMOCEPHALIC - Eye Exam Eye Exam: EOMI, Normal appearance, PERRL Pupil Exam: NORMAL ACCOMODATION, PERRL - ENT Exam ENT Exam: Mucous Membranes Moist, Normal Exam - Neck Exam Neck Exam: Full ROM, Normal Inspection. absent: Lymphadenopathy - Respiratory Exam Respiratory Exam: Clear to Ausculation Bilateral, NORMAL BREATHING PATTERN - Cardiovascular Exam Cardiovascular Exam: REGULAR RHYTHM, RRR, +S1, +S2, Murmur - GI/Abdominal Exam GI & Abdominal Exam: Soft, Normal Bowel Sounds. absent: Tenderness - Extremities Exam Extremities Exam: Full ROM, Normal Capillary Refill, Normal Inspection. absent : Joint Swelling, Pedal Edema - Back Exam Back Exam: NORMAL INSPECTION - Neurological Exam Neurological Exam: Alert, Awake, CN II-XII Intact, Normal Gait, Oriented x3 Neuro motor strength exam: Left Upper Extremity: 4, Right Upper Extremity: 5, Left Lower Extremity: 4, Right Lower Extremity: 5 - Psychiatric Exam Psychiatric exam: Normal Affect, Normal Mood - Skin Skin Exam: Dry, Intact, Normal Color, Warm Assessment and Plan (1) CVA (cerebral vascular accident) Status: Acute (2) DVT prophylaxis Status: Acute - Assessment and Plan (Free Text) Assessment: (1) CVA (cerebral vascular accident) Assessment and Plan: eliquis cardio/neuro pt/ot physiatry Status: Acute (2) DVT prophylaxis Assessment and Plan: scd nad ae hose eliquis Status: Acute [id number] levemir, diet control, riss, fsbg dietary teaching for izabela 2-lmqubj-sukixr, eliquis 5-red rash-bactroban, will reeval in 2 days, ?? need for antifungal, rash improving
[2018-02-09] MEDS: Insulin Detemir 100 Units/ml Inj SC SCH (21:48)
[2018-02-10] MEDS: GlipiZIDE 5 mg SR Tab PO SCH (07:30)
[2018-02-10] MEDS: Insulin Detemir 100 Units/ml Inj SC SCH (21:11)
[2018-02-11] MEDS: GlipiZIDE 5 mg SR Tab PO SCH (07:06)
--- NOTE | 2018-02-11 07:33 | CP.PCM.PN ---
Subjective - Date & Time of Evaluation Date of Evaluation: 02/11/18 Time of Evaluation: 07:33 - Subjective Subjective: pt doing well, no f/c, nv/d. left sided movements as previously assessed Objective - Vital Signs/Intake and Output Vital Signs (last 24 hours): Temp Pulse Resp BP Pulse Ox 97.8 F 64 20 127/68 96 02/10/18 21:05 02/10/18 21:05 02/10/18 21:05 02/10/18 21:05 02/10/18 21:05 - Medications Medications: Current Medications Amlodipine Besylate (Norvasc) 10 mg PO DAILY [facility] Last Admin: 02/10/18 08:10 Dose: 10 mg Apixaban (Eliquis) 5 mg PO BID [facility] PRN Reason: Protocol Last Admin: 02/10/18 17:05 Dose: 5 mg Aspirin (Ecotrin) 81 mg PO DAILY [facility] Last Admin: 02/10/18 08:09 Dose: 81 mg Atorvastatin Calcium (Lipitor) 20 mg PO HS [facility] Last Admin: 02/10/18 21:11 Dose: 20 mg Dextrose (Dextrose 50% Inj) 50 ml IVP PRN PRN PRN Reason: If BS < 50 & pt. unresponsive. Docusate Sodium (Colace) 100 mg PO BID [facility] Last Admin: 02/10/18 17:05 Dose: 100 mg Finasteride (Proscar) 5 mg PO DAILY [facility] Last Admin: 02/10/18 08:09 Dose: 5 mg Fluocinonide (Lidex 0.05% Cream) 1 applic TOP BID [facility] Last Admin: 02/10/18 17:05 Dose: 1 applic Glipizide (Glucotrol Xl) 5 mg PO ACB [facility] Last Admin: 02/11/18 07:06 Dose: 5 mg Insulin Detemir (Levemir) 15 units SC HS [facility] Last Admin: 02/10/18 21:11 Dose: 15 units Lactulose (Enulose) 20 gm PO HS PRN PRN Reason: Constipation Last Admin: 01/29/18 21:14 Dose: 20 gm Metformin HCl (Glucophage) 500 mg PO BID [facility] Last Admin: 02/10/18 17:05 Dose: 500 mg Nystatin (Nystop Topical Powder) 1 applic TOP Q8 [facility] Last Admin: 02/11/18 06:11 Dose: 1 applic Tamsulosin HCl (Flomax) 0.4 mg PO HS [facility] Last Admin: 02/10/18 21:11 Dose: 0.4 mg - Labs Labs: 01/29/18 05:40 01/29/18 05:40 PT 14.5 Seconds (9.8-13.1) H 01/24/18 05:45 INR 1.3 (0.9-1.2) H 01/24/18 05:45 APTT 35.4 Seconds (25.6-37.1) 01/24/18 05:45 - Constitutional Appears: Well, Non-toxic, No Acute Distress - Head Exam Head Exam: ATRAUMATIC, NORMAL INSPECTION, NORMOCEPHALIC - Eye Exam Eye Exam: EOMI, Normal appearance, PERRL Pupil Exam: NORMAL ACCOMODATION, PERRL - ENT Exam ENT Exam: Mucous Membranes Moist, Normal Exam - Neck Exam Neck Exam: Full ROM, Normal Inspection. absent: Lymphadenopathy - Respiratory Exam Respiratory Exam: Clear to Ausculation Bilateral, NORMAL BREATHING PATTERN - Cardiovascular Exam Cardiovascular Exam: REGULAR RHYTHM, RRR, +S1, +S2. absent: Murmur - GI/Abdominal Exam GI & Abdominal Exam: Soft, Normal Bowel Sounds. absent: Tenderness - Extremities Exam Extremities Exam: Full ROM, Normal Capillary Refill, Normal Inspection. absent : Joint Swelling, Pedal Edema - Back Exam Back Exam: NORMAL INSPECTION - Neurological Exam Neurological Exam: Alert, Awake, CN II-XII Intact, Normal Gait, Oriented x3 Neuro motor strength exam: Left Upper Extremity: 4, Right Upper Extremity: 5, Left Lower Extremity: 4, Right Lower Extremity: 5 - Psychiatric Exam Psychiatric exam: Normal Affect, Normal Mood - Skin Skin Exam: Dry, Intact, Normal Color, Warm Assessment and Plan (1) CVA (cerebral vascular accident) Status: Acute (2) DVT prophylaxis Status: Acute - Assessment and Plan (Free Text) Assessment: (1) CVA (cerebral vascular accident) Assessment and Plan: eliquis cardio/neuro pt/ot physiatry Status: Acute (2) DVT prophylaxis Assessment and Plan: scd nad ae hose eliquis Status: Acute [id number] levemir, diet control, riss, fsbg dietary teaching for izabela [id number], eliquis 5-red rash-bactroban, will reeval in 2 days, ?? need for antifungal, rash improving
[2018-02-11] MEDS: Insulin Detemir 100 Units/ml Inj SC SCH (21:02)
[2018-02-12] MEDS: GlipiZIDE 5 mg SR Tab PO SCH (07:07)
[2018-02-12 20:54] VITALS: O2SAT 97
[2018-02-12] MEDS: Insulin Detemir 100 Units/ml Inj SC SCH (21:37)
[2018-02-13] MEDS: GlipiZIDE 5 mg SR Tab PO SCH (07:12)
--- NOTE | 2018-02-13 08:20 | CP.PCM.PN ---
Subjective - Date & Time of Evaluation Date of Evaluation: 02/13/18 Time of Evaluation: 08:20 - Subjective Subjective: pt doing well. no f/c, n/v/d. leftsided weakness remains the same. glucose noted. vs noted. pending bed at [facility] Objective - Vital Signs/Intake and Output Vital Signs (last 24 hours): Temp Pulse Resp BP Pulse Ox 97.7 F 65 20 115/61 97 02/12/18 20:00 02/12/18 20:00 02/12/18 20:00 02/12/18 20:00 02/12/18 20:00 - Medications Medications: Current Medications Amlodipine Besylate (Norvasc) 10 mg PO DAILY [facility] Last Admin: 02/12/18 08:15 Dose: 10 mg Apixaban (Eliquis) 5 mg PO BID [facility] PRN Reason: Protocol Last Admin: 02/12/18 16:59 Dose: 5 mg Aspirin (Ecotrin) 81 mg PO DAILY [facility] Last Admin: 02/12/18 08:16 Dose: 81 mg Atorvastatin Calcium (Lipitor) 20 mg PO HS [facility] Last Admin: 02/12/18 21:26 Dose: 20 mg Dextrose (Dextrose 50% Inj) 50 ml IVP PRN PRN PRN Reason: If BS < 50 & pt. unresponsive. Docusate Sodium (Colace) 100 mg PO BID [facility] Last Admin: 02/12/18 16:59 Dose: 100 mg Finasteride (Proscar) 5 mg PO DAILY [facility] Last Admin: 02/12/18 08:16 Dose: 5 mg Fluocinonide (Lidex 0.05% Cream) 1 applic TOP BID [facility] Last Admin: 02/12/18 17:00 Dose: 1 applic Glipizide (Glucotrol Xl) 5 mg PO ACB [facility] Last Admin: 02/13/18 07:12 Dose: 5 mg Insulin Detemir (Levemir) 15 units SC HS [facility] Last Admin: 02/12/18 21:37 Dose: 15 units Lactulose (Enulose) 20 gm PO HS PRN PRN Reason: Constipation Last Admin: 01/29/18 21:14 Dose: 20 gm Metformin HCl (Glucophage) 500 mg PO BID [facility] Last Admin: 02/12/18 17:00 Dose: 500 mg Nystatin (Nystop Topical Powder) 1 applic TOP Q8 [facility] Last Admin: 02/13/18 06:12 Dose: 1 applic Tamsulosin HCl (Flomax) 0.4 mg PO HS [facility] Last Admin: 02/12/18 21:26 Dose: 0.4 mg - Labs Labs: 01/29/18 05:40 01/29/18 05:40 PT 14.5 Seconds (9.8-13.1) H 01/24/18 05:45 INR 1.3 (0.9-1.2) H 01/24/18 05:45 APTT 35.4 Seconds (25.6-37.1) 01/24/18 05:45 - Constitutional Appears: Well, Non-toxic, No Acute Distress - Head Exam Head Exam: ATRAUMATIC, NORMAL INSPECTION, NORMOCEPHALIC - Eye Exam Eye Exam: EOMI, Normal appearance, PERRL Pupil Exam: NORMAL ACCOMODATION, PERRL - ENT Exam ENT Exam: Mucous Membranes Moist, Normal Exam - Neck Exam Neck Exam: Full ROM, Normal Inspection. absent: Lymphadenopathy - Respiratory Exam Respiratory Exam: Clear to Ausculation Bilateral, NORMAL BREATHING PATTERN - Cardiovascular Exam Cardiovascular Exam: REGULAR RHYTHM, RRR, +S1, +S2. absent: Murmur - GI/Abdominal Exam GI & Abdominal Exam: Soft, Normal Bowel Sounds. absent: Tenderness - Extremities Exam Extremities Exam: Full ROM, Normal Capillary Refill, Normal Inspection. absent : Joint Swelling, Pedal Edema - Back Exam Back Exam: NORMAL INSPECTION - Neurological Exam Neurological Exam: Abnormal Gait, Alert, Awake, CN II-XII Intact, Oriented x3 Neuro motor strength exam: Left Upper Extremity: 4, Right Upper Extremity: 5, Left Lower Extremity: 4, Right Lower Extremity: 5 - Psychiatric Exam Psychiatric exam: Normal Affect, Normal Mood - Skin Skin Exam: Dry, Intact, Normal Color, Warm Assessment and Plan (1) CVA (cerebral vascular accident) Status: Acute (2) DVT prophylaxis Status: Acute - Assessment and Plan (Free Text) Assessment: (1) CVA (cerebral vascular accident) Assessment and Plan: eliquis cardio/neuro pt/ot physiatry Status: Acute (2) DVT prophylaxis Assessment and Plan: scd nad ae hose eliquis Status: Acute [id number] levemir, diet control, riss, fsbg dietary teaching for ziabela [id number], eliquis 5-red rash-bactroban, will reeval in 2 days, ?? need for antifungal, rash improving
[2018-02-13 08:37] VITALS: BP 145/73
[2018-02-13 09:13] VITALS: PULSE 64; RESP 18; TEMP 96.8
== END 2018-02-13 13:00 | DRG 57 ==
PROVIDERS: ADMIT Family Medicine; ATTEND Family Medicine
PROC: F07Z9FZ Gait Training/Functional Ambulation Treatment using Assistive, Adaptive, Supportive or Protective Equipment (ICD-10-PCS; 2018-01-16)
PROC: F07M6FZ Therapeutic Exercise Treatment of Musculoskeletal System - Whole Body using Assistive, Adaptive, Supportive or Protective Equipment (ICD-10-PCS; principal; 2018-01-17)
PROC: F08Z4FZ Home Management Treatment using Assistive, Adaptive, Supportive or Protective Equipment (ICD-10-PCS; 2018-01-17)
DX: I69.354 Hemiplegia and hemiparesis following cerebral infarction affecting left non-dominant side (principal); N17.9 Acute kidney failure, unspecified; E87.0 Hyperosmolality and hypernatremia; E11.65 Type 2 diabetes mellitus with hyperglycemia; E86.0 Dehydration; E78.00 Pure hypercholesterolemia, unspecified; H40.9 Unspecified glaucoma; I10 Essential (primary) hypertension; I35.0 Nonrheumatic aortic (valve) stenosis; Z79.4 Long term (current) use of insulin; H26.9 Unspecified cataract; K59.00 Constipation, unspecified